=== PATIENT | female | born 1960 | race African-American/Black ===

== ENCOUNTER 2016-09-03 17:13 | Emergency (ER) | payer SELFPAY ==
--- NOTE | 2016-09-03 19:24 | ER Document Report ---
ED Medical Screen (RME) - General Chief Complaint: Black/Tarry Stools Stated Complaint: NUMBNESS IN ARM/BLACK STOOL/DIZZINESS Time Seen by Provider: 09/03/16 18:58 Mode of Arrival: Ambulatory Information source: Patient Notes: Patient is a 56 year old female who presents to the ED with complaints of black , tarry, watery stool with a "clump" today. Patient also states she has abdominal pain. Patient denies a history of ulcerative colitis. Patient also states she has had a subjective fever. Patient takes 1 aspirin daily but denies any iron supplements or recently taking Pepto. TRAVEL OUTSIDE OF THE [place] IN LAST 30 DAYS: No - Related Data Allergies/Adverse Reactions: celecoxib [From Celebrex] Allergy (Verified 09/03/16 17:40) hydrochlorothiazide Allergy (Verified 09/03/16 17:40) Past Medical History - General Information source: Patient - Social History Chew tobacco use (# tins/day): No Frequency of alcohol use: Occasional Drug Abuse: Marijuana - Past Medical History Cardiac Medical History: Reports: Hx Hypertension Neurological Medical History: Reports: Hx Migraine Renal/ Medical History: Denies: Hx Peritoneal Dialysis Musculoskeltal Medical History: Reports Hx Arthritis Past Surgical History: Reports: Hx Orthopedic Surgery - Cervical fusion Review of Systems - Review of Systems Constitutional: See HPI, Fever - subjective EENT: No symptoms reported Cardiovascular: No symptoms reported Respiratory: No symptoms reported Gastrointestinal: See HPI, Abdominal pain, Diarrhea, Black stools Genitourinary: No symptoms reported Female Genitourinary: No symptoms reported Musculoskeletal: No symptoms reported Skin: No symptoms reported Hematologic/Lymphatic: No symptoms reported Neurological/Psychological: No symptoms reported Physical Exam - Vital signs Vitals: Temp Pulse Resp BP Pulse Ox 98.5 F 96 20 168/91 H 97 09/03/16 17:40 09/03/16 17:40 09/03/16 17:40 09/03/16 17:40 09/03/16 17:40 - General In distress: None - Respiratory Respiratory status: No respiratory distress Breath sounds: Normal - Cardiovascular Rhythm: Regular Heart sounds: Normal auscultation Murmur: No - Neurological Neuro grossly intact: Yes Course - Vital Signs Vital signs: Temp Pulse Resp BP Pulse Ox 98.5 F 96 20 168/91 H 97 09/03/16 17:40 09/03/16 17:40 09/03/16 17:40 09/03/16 17:40 09/03/16 17:40 Scribe Documentation - Scribe Written by Medina:: medina Howard, 09/03/2016, 1922 acting as scribe for :: Wenceslao
[2016-09-03 19:44] LABS: ABSOLUTE BASOPHILS # (AUTO) 0.1 10^3/uL (0.0-0.2); ABSOLUTE EOSINOPHILS # (AUTO) 0.1 10^3/uL (0.0-0.6); ABSOLUTE LYMPHOCYTES (AUTO) 2.1 10^3/uL (0.5-4.7); ABSOLUTE MONOCYTES (AUTO) 0.7 10^3/uL (0.1-1.4); ABSOLUTE NEUT (AUTO) 9.5 10^3/uL (1.7-8.2); BASOPHILS % (AUTO) 0.8 % (0-2); HEMATOCRIT 45.1 % (36.0-47.0); HEMOGLOBIN 14.9 g/dL (12.0-15.5); HGB HCT DIFFERENCE -0.4; LYMPHOCYTES % (AUTO) 16.9 % (13-45); MEAN CORPUSCULAR HEMOGLOBIN 30.8 pg (27.0-33.4); MEAN CORPUSCULAR HGB CONC 32.9 g/dL (32.0-36.0); MEAN CORPUSCULAR VOLUME 94 fl (80-97); MONOCYTES % (AUTO) 5.9 % (3-13); RED BLOOD COUNT 4.82 10^6/uL (3.72-5.28); RED CELL DISTRIBUTION WIDTH 14.5 % (11.5-14.0); SEGMENTED NEUTROPHILS % (AUTO) 75.4 % (42-78); WHITE BLOOD COUNT 12.6 10^3/uL (4.0-10.5)
[2016-09-03 19:51] LABS: PROTHROMBIN TIME 12.4 SEC (11.4-15.4)
[2016-09-03 20:00] LABS: ALANINE AMINOTRANSFERASE 35 U/L (9-52); ALBUMIN 4.6 g/dL (3.5-5.0); ALKALINE PHOSPHATASE 84 U/L (38-126); ANION GAP 13 (5-19); ASPARTATE AMINO TRANSFERASE 22 U/L (14-36); BILIRUBIN,DIRECT 0.3 mg/dL (0.0-0.4); BILIRUBIN,TOTAL 0.6 mg/dL (0.2-1.3); BLOOD UREA NITROGEN 14 mg/dL (7-20); CALCIUM 10.8 mg/dL (8.4-10.2); CARBON DIOXIDE 27 mmol/L (22-30); CHLORIDE 103 mmol/L (98-107); GLUCOSE 108 mg/dL (75-110); POTASSIUM 4.9 mmol/L (3.6-5.0); SODIUM 142.6 mmol/L (137-145); TOTAL PROTEIN 8.6 g/dL (6.3-8.2)
--- NOTE | 2016-09-03 23:28 | ER Document Report ---
ED General - General Mode of Arrival: Ambulatory Information source: Patient TRAVEL OUTSIDE OF THE [place] IN LAST 30 DAYS: No - HPI Onset: Other - Refer to HPI notes Similar symptoms previously: Yes Recently seen / treated by doctor: No <MARYANNE TIAN - Last Filed: 09/04/16 01:45> <RANDY PRETTY - Last Filed: 09/04/16 04:31> - General Chief Complaint: Black/Tarry Stools Stated Complaint: NUMBNESS IN ARM/BLACK STOOL/DIZZINESS Time Seen by Provider: 09/03/16 18:58 Notes: Patient complains of numbness and pain to her right arm and chest x3 weeks. Patient also has some reducible chest pain to palpation. Patient's symptoms have been waxing and waning for 3 weeks. Patient denies any blurred or double vision. Patient complains of new symptoms of bloody/black stools. Patient states there is cloting, mucus, and a foul odor when she has a bowel movement. When patient goes to urinate she states she automatically has a bowel movement/ diarrhea. Patient has a history of chronic pain in her hip. Patient takes gavapentin from a previous neck surgery (300 mg x3 per day). Patient also has nebulizers and inhalers that she uses. PCP Candie Rossi (MARYANNE TIAN) - Related Data Allergies/Adverse Reactions: celecoxib [From Celebrex] Allergy (Verified 09/03/16 17:40) hydrochlorothiazide Allergy (Verified 09/03/16 17:40) Past Medical History - General Information source: Patient - Social History Smoking Status: Current Every Day Smoker Chew tobacco use (# tins/day): No Frequency of alcohol use: Occasional Drug Abuse: Marijuana Family History: None Patient has suicidal ideation: No Patient has homicidal ideation: No - Past Medical History Cardiac Medical History: Reports: Hx Hypertension Neurological Medical History: Reports: Hx Migraine Musculoskeltal Medical History: Reports Hx Arthritis Past Surgical History: Reports: Hx Orthopedic Surgery - Cervical fusion, Other - colonoscopy 2013 <AMRYANNE TIAN - Last Filed: 09/04/16 01:45> Review of Systems - Review of Systems Constitutional: No symptoms reported EENT: No symptoms reported Cardiovascular: Chest pain Respiratory: No symptoms reported Gastrointestinal: See HPI, Black stools Genitourinary: No symptoms reported Female Genitourinary: No symptoms reported Musculoskeletal: See HPI Skin: No symptoms reported Hematologic/Lymphatic: No symptoms reported Neurological/Psychological: No symptoms reported -: Yes All other systems reviewed and negative <MARYANNE TIAN - Last Filed: 09/04/16 01:45> Physical Exam <MIKE TIANINE - Last Filed: 09/04/16 01:45> <RANDY PRETTY - Last Filed: 09/04/16 04:31> - Vital signs Vitals: Temp Pulse Resp BP Pulse Ox 98.5 F 96 20 168/91 H 97 09/03/16 17:40 09/03/16 17:40 09/03/16 17:40 09/03/16 17:40 09/03/16 17:40 - Notes Notes: GENERAL: Alert, interacts well. No acute distress. HEAD: Normocephalic, atraumatic. EYES: Appear normal. Pupils equal, round, and reactive to light. ENT: Moist mucus membranes, tongue midline. NECK: Full range of motion. Supple. Trachea midline. Left posterior cervical tenderness to palpation. LUNGS: Clear to auscultation bilaterally, no wheezes, rales, or rhonchi. No respiratory distress. Left inferior chest wall tenderness to palpation. HEART: Regular rate and rhythm. No murmurs, gallops, or rubs. ABDOMEN: Soft, non-tender. Non-distended. Normal bowel sounds. EXTREMITIES: Moves all 4 extremities spontaneously. Normal strength. No edema. Radial pulses intact bilaterally. NEUROLOGICAL: Alert and oriented x3. Normal speech. No focal neurological deficits. GSC 15. PSYCH: Normal affect, normal mood. SKIN: Warm, dry, normal turgor. No rashes or lesions noted. (MARYANNE TIAN) Course - Laboratory Result Diagrams: 09/03/16 19:30 09/03/16 19:30 <FLAVIAMIKE MADERAINE - Last Filed: 09/04/16 01:45> - Laboratory Result Diagrams: 09/03/16 19:30 09/03/16 19:30 <RANDY PRETTY - Last Filed: 09/04/16 04:31> - Re-evaluation Re-evalutation: 09/03/16 23:36 Patient presents emergency department with a chief complaint of reproducible pain when she presses her left anterior chest wall. She says she also gets occasional tingling and numbness into her left arm for the past 3-4 weeks but has not talked to her primary care physician about a year. She has a history of fusion her neck but no injury no strokelike symptoms headache blurred vision or double vision. Her chest pain is reproducible to touch and movement she has no shortness of breath does not change with exertion. She had a sample of her diarrhea sent down to the lab and it was negative for blood. Radial ulnar axillary median nerves are intact no acute concerns for AK dissection or stroke. She has a radiculopathy which limits her on some steroids for she can call her family doctor follow-up in the next 2-3 days and discussed reasons for ED return sooner (RANDY PRETTY) - Vital Signs Vital signs: Temp Pulse Resp BP Pulse Ox 98.1 F 74 16 147/83 H 99 09/03/16 23:43 09/03/16 23:43 09/03/16 23:43 09/03/16 23:43 09/03/16 23:43 - Laboratory Laboratory results interpreted by me: 09/03/16 09/03/16 19:30 19:30 WBC 12.6 H RDW 14.5 H Absolute Neutrophils 9.5 H Calcium 10.8 H Total Protein 8.6 H Discharge <MARYANNE TIAN - Last Filed: 09/04/16 01:45> <RANDY PRETTY - Last Filed: 09/04/16 04:31> - Discharge Clinical Impression: Chest wall pain Radiculopathy Qualifiers: Spinal region: unspecified Qualified Code(s): M54.10 - Radiculopathy, site unspecified Condition: Stable Disposition: HOME, SELF-CARE Instructions: Chest Wall Pain ([facility]) Additional Instructions: Chest Wall Pain Your chest pain has been diagnosed as coming from the chest wall. This is often caused by straining the muscles or joints in the chest during physical activity, direct trauma, coughing, or vigorous vomiting. Persons with arthritis are especially prone to this type of pain, due to inflammation of the cartilage joints near the breast bone. Occasionally, no cause can be found. Rest from strenuous physical activity. This kind of chest pain is usually made worse by movement of the chest. Depending on the symptoms, we may prescribe medicine for pain, muscle relaxation, and antiinflammatory effects. If the pain is new, and seems to be due to muscle strain, cold packs can help. Otherwise, apply gentle warmth to the painful area for 15 minutes every hour or two. You should contact the doctor immediately if things change. Further evaluation is needed if you develop a fever or cough, if the nature of the pain changes, or if you become short of breath. Radiculopathy Radiculopathy is irritation of a nerve. Sometimes this is called "pinched nerve." The pain can be sharp and stabbing, constant and dull, or burning in nature. The pain can occur in any area of the chest, shoulders, or arms. Sometimes the pain is provoked by coughing or moving. Radiculopathy can be caused by physical pressure on a nerve, such as a herniated disc or swollen joint in the spine. It can also be caused by viral infections within the nerve or by nerve damage due to diabetes or blood vessel disease. Radicular pain is treated with antiinflammatory medicine. Injections may help resistant cases, if we can identify a single nerve that's causing the pain. Surgery is usually not necessary. If symptoms do not improve with time, you may need additional testing, such as an MRI or EMG (electromyogram). Return if there is local weakness or numbness, shortness of breath, increasing pain, or other new symptoms. Follow-up with Candie rossi in 2-3 days return for increasing worsening or new symptoms Prescriptions: Prednisone [Deltasone 20 mg Tablet] 3 tab PO DAILY 5 Days Forms: Return to Work Scribe Attestation: 09/03/16 23:36 I personally performed the services described in the documentation reviewed the documentation recorded by my scribe in my presence and it accurately and completely records my words and actions (RANDY PRETTY) Scribe Documentation - Scribe Written by Erwin:: Erwin Romero 09/03/16 23:34 acting as scribe for :: Cesar <MARYANNE TIAN - Last Filed: 09/04/16 01:45>
[2016-09-03 23:47] VITALS: BP 147/83
== END 2016-09-03 23:50 | disposition home or self-care (01) ==
LOC: ER 17:13
DX: M54.10 Radiculopathy, site unspecified (principal); R07.89 Other chest pain; R19.5 Other fecal abnormalities; M79.601 Pain in right arm; F17.200 Nicotine dependence, unspecified, uncomplicated; I10 Essential (primary) hypertension; Z98.1 Arthrodesis status
CPT/HCPCS: 36415; 80053; 82272; 85025; 85610; 86850; 86900; 86901; 87045; 87205; 87493; 99284

== ENCOUNTER 2017-02-12 12:07 | Emergency (ER) | payer SELFPAY ==
--- NOTE | 2017-02-12 13:26 | RADIOLOGY REPORT (SQ) ---
EXAM DESCRIPTION: CHEST PA/LAT COMPLETED DATE/TIME: 02/12/2017 1:17 pm REASON FOR STUDY: cough COMPARISON: 10/27/2015. EXAM PARAMETERS: NUMBER OF VIEWS: two views TECHNIQUE: Digital Frontal and Lateral radiographic views of the chest acquired. RADIATION DOSE: NA LIMITATIONS: none FINDINGS: LUNGS AND PLEURA: No opacities, masses or pneumothorax. No pleural effusion. MEDIASTINUM AND HILAR STRUCTURES: No masses or contour abnormalities. HEART AND VASCULAR STRUCTURES: Heart normal size. No evidence for failure. BONES: No acute findings. HARDWARE: Hardware in the cervical spine. OTHER: No other significant finding. IMPRESSION: NO SIGNIFICANT RADIOGRAPHIC FINDING IN THE CHEST. TECHNICAL DOCUMENTATION: JOB ID: [id number] [employer]- All Rights Reserved
[2017-02-12] MEDS ORDERED: IPRATROPIUM/ALBUTEROL 0.5-2.5 MG/3 ML AMPUL NEB ONE (13:28)
--- NOTE | 2017-02-12 13:34 | ER Document Report ---
HPI - HPI Pain Level: 4 Notes: Patient is a 57-year-old female with a history of hypertension and asthma who presents the ED complaining of intermittent fever, nasal congestion/discharge, postnasal drip, [place]'s, body aches, dry semi-productive cough, wheezing 4-5 days. Patient states that she also has associated pain in her chest when she coughs that is reproducible when she pushes on it. Patient has been using over- the-counter meds with minimal relief. She still eating and drinking without difficulties. She is still ambulatory without dyspnea on exertion or worsening symptoms. Patient states that she has no difficulties with distance walking or exercising. She is urinating normally and having normal bowel movements. She denies any previous cardiac history otherwise including PE and DVT. She denies any hormone use, calf pains, recent trauma/surgery, prolonged immobilization, cancer. patient does admit to vague pain, but denies cigarette use. She denies any IV drug use. Denies any head injury, neck pain, changes in vision/ speech/mentation/hearing, sore throat, palpitations, syncope, shortness of breath, dyspnea, abdominal pain, nausea/vomiting/diarrhea, urinary retention, dysuria, hematuria, loss of control of bowel or bladder, numbness/tingling, saddle anesthesia, muscle paralysis/weakness, or rash. - ROS Notes: REVIEW OF SYSTEMS: CONSTITUTIONAL : see hpi EENT: see hpi CARDIOVASCULAR: Denies chest pain. Denies palpitations or racing or irregular heart beat. Denies ankle edema. RESPIRATORY: see hpi GASTROINTESTINAL: Denies abdominal pain or distention. Denies nausea, vomiting , or diarrhea. Denies blood in vomitus, stools, or per rectum. Denies black, tarry stools. Denies constipation. GENITOURINARY: Denies difficulty urinating, painful urination, burning, frequency, blood in urine, or discharge. MUSCULOSKELETAL: Denies back or neck pain or stiffness. Denies joint pain or swelling. SKIN: Denies rash, lesions or sores. NEUROLOGICAL: Denies confusion or altered mental status. Denies passing out or loss of consciousness. Denies dizziness or lightheadedness. Denies weakness or paralysis or loss of use of either side. Denies problems with gait or speech. Denies sensory loss, numbness, or tingling. Denies seizures. ALL OTHER SYSTEMS REVIEWED AND NEGATIVE. Dictation was performed using [employer] voice recognition software - CONSTITUTIONAL Constitutional: DENIES: Fever, Chills - EENT EENT: DENIES: Sore Throat, Ear Pain, Eye problems - NEURO Neurology: REPORTS: Headache. DENIES: Weakness, Vision blurred, Dizzinesss / Vertigo - CARDIOVASCULAR Cardiovascular: REPORTS: Chest pain - pleuritic pain - RESPIRATORY Respiratory: REPORTS: Trouble Breathing - pain upon deep breaths, Coughing - non -productive cough - GASTROINTESTINAL Gastrointestinal: DENIES: Abdominal Pain, Black / Bloody Stools - URINARY Urinary: DENIES: Dysuria, Urgency, Frequency - REPRODUCTIVE Reproductive: DENIES: : - MUSCULOSKELETAL Musculoskeletal: DENIES: Extremity pain Past Medical History - Social History Smoking Status: Current Some Day Smoker Chew tobacco use (# tins/day): No Frequency of alcohol use: Occasional Drug Abuse: None Family History: None Patient has suicidal ideation: No Patient has homicidal ideation: No - Past Medical History Cardiac Medical History: Reports: Hx Hypertension Neurological Medical History: Reports: Hx Migraine Renal/ Medical History: Denies: Hx Peritoneal Dialysis Musculoskeltal Medical History: Reports Hx Arthritis Past Surgical History: Reports: Hx Orthopedic Surgery - Cervical fusion, Other - colonoscopy 2013 Vertical Provider Document - CONSTITUTIONAL Agree With Documented VS: Yes Notes: PHYSICAL EXAMINATION: GENERAL: Well-appearing, well-nourished and in no acute distress. A&Ox4 HEAD: Atraumatic, normocephalic. EYES: Pupils equal round and reactive to light, extraocular movements intact, sclera anicteric, conjunctiva are normal. ENT: EAC clear b/l. TM's intact b/l without erythema, fluid, or perforation. Nares patent and with clear discharge. oropharynx clear without exudates. No tonsilar hypertrophy or erythema. Moist mucous membranes. No sinus tenderness. Uvula midline. No palatine shift. No tongue protrusion. NECK: Normal range of motion, supple without lymphadenopathy. No rigidity/ meningismus. Chest: + tenderness to the left costocondral area (corresponds to pain described). No flail chest. equal rise/fall. LUNGS: wheezes b/l. HEART: Regular rate and rhythm without murmurs, rubs, gallops. ABDOMEN: Soft, nontender, nondistended abdomen. No guarding, no rebound. No masses appreciated. Normal bowel sounds present. Musculoskeletal: Ext b/l: FROM to passive/active. Strength 5+/5. No deficits noted. No bony tenderness of extremities. Vishal neg b/l. No erythema or swelling of calves b/l. Extremities: No cyanosis, clubbing, or edema b/l. Peripheral pulses 2+. Capillary refill less than 2 seconds. NEUROLOGICAL: MMSE intact. Cranial nerves grossly intact. Normal speech, normal gait. Normal sensory, motor exams. Reflexes 2+ b/l. MILAGRO's negative. Pronator drift negative. PSYCH: Normal mood, normal affect. SKIN: Warm, Dry, normal turgor, no rashes or lesions noted. - INFECTION CONTROL TRAVEL OUTSIDE OF THE [place] IN LAST 30 DAYS: No - RESPIRATORY O2 Sat by Pulse Oximetry: 97 Course - Re-evaluation Re-evalutation: 02/12/17 14:50 Patient is an afebrile, well-hydrated, 57-year-old female who presents to the ED with acute URI/bronchitis, suspect viral at this time. Vitals are stable. PE is otherwise unremarkable. Influenza negative. Pt's H&P correlate with suspected diagnosis. Patient has a Well's score of 0, but cannot r/o PERC due to age alone--otherwise would be negative. EKG and CXR unremarkable for acute pathology and without signs of right heart strain. Pt has otherwise lower risk factors for emergent cardiopulmonary etiologies at this time. Pt is not tachycardic and is able to walk and be active w/o difficulty or worsening symptoms. Pt's chest pain is reproducible. Low suspicion for any ACS, PE, pneumothorax, pericarditis, dissection, respiratory compromise, severe dehydration, sepsis, meningitis, or other systemic emergent condition at this time. Patient is aware that her condition can change from initial presentation and she needs to monitor symptoms closely and seek medical attention for any acute changes. Decadron and a duoneb tx given today. Lung sounds did improve. I will send her home with a Rx for tessalon and albuterol inhaler. Recommend conservative measures for symptoms. Recheck with your PCM in 3-5 days. Return to the ED with any worsening/concerning symptoms otherwise as reviewed in discharge. Patient is in agreement. - Vital Signs Vital signs: Temp Pulse Resp BP Pulse Ox 98.2 F 73 18 159/85 H 97 02/12/17 12:15 02/12/17 12:15 02/12/17 12:15 02/12/17 12:15 02/12/17 12:15 Discharge - Discharge Clinical Impression: Acute URI, Chest wall pain Acute bronchitis Qualifiers: Bronchitis organism: unspecified organism Qualified Code(s): J20.9 - Acute bronchitis, unspecified Condition: Stable Disposition: HOME, SELF-CARE Instructions: Bronchitis With Bronchospasm (Wheezing) ([facility]), Inhaled Bronchodilators ([facility]), Upper Respiratory Illness ([facility]) Additional Instructions: Maintain adequate fluid intake Take meds as directed tylenol/ibuprofen as needed over the counter cold medication as needed for symptoms Humidified air may help Monitor symptoms closely for any acute changes ice, heat may help the chest wall F/u: with your PCM in 3-5 days for a recheck Return to the ED with any worsening symptoms and/or development of fever, worsening headache, worsening chest pain, palpitations, syncope, shortness of breath, trouble breathing, dyspnea on exertion, abdominal pain, n/v/d, blood in stool/urine, loss of control of bowel/bladder, urinary retention, or other worsening symptoms that are concerning to you. Prescriptions: Benzonatate [Tessalon Perle 100 mg Capsule] 100 mg PO Q8HP PRN #15 cap PRN Reason: Albuterol Sulfate [Proair HFA Inhalation Aerosol 8.5 gm MDI] 2 puff IH Q4H PRN # 1 mdi PRN Reason: Forms: Elevated Blood Pressure, Smoking Cessation Education, Return to Work Referrals: [facility] [Provider Group] - Follow up as needed [facility] [Provider Group] - Follow up as needed
[2017-02-12] MEDS ORDERED: DEXAMETHASONE SOD PHOS INJ 10 MG/1 ML VIAL IM ONE ×2 (14:14→14:36)
[2017-02-12] MEDS ORDERED: DEXAMETHASONE SOD PHOSPHATE INJ 4 MG/1 ML VIAL ONE (14:35)
[2017-02-12 15:09] VITALS: BP 145/88
--- NOTE | 2017-02-12 20:30 | EKG REPORT ---
SEVERITY:- OTHERWISE NORMAL ECG - SINUS RHYTHM BORDERLINE LEFT AXIS DEVIATION : Confirmed by: Bethany Guo MD 12-Feb-2017 20:28:43
== END 2017-02-12 15:09 | disposition home or self-care (01) ==
LOC: ER 12:07
DX: J06.9 Acute upper respiratory infection, unspecified (principal); J20.9 Acute bronchitis, unspecified; R07.89 Other chest pain; I10 Essential (primary) hypertension; R50.9 Fever, unspecified; R09.81 Nasal congestion; R09.89 Other specified symptoms and signs involving the circulatory and respiratory systems; R09.82 Postnasal drip; R51 Headache; M79.1 Myalgia; R05 Cough; R06.2 Wheezing; F17.200 Nicotine dependence, unspecified, uncomplicated
CPT/HCPCS: 93005; 99284; 96372; 87804; 71020; 93010; J1100; J7620

== ENCOUNTER 2017-03-25 08:01 | Emergency (ER) | payer SELFPAY ==
[2017-03-25] MEDS ORDERED: ASPIRIN 81 MG TABLET, CHEWABLE PO ONE (08:47)
[2017-03-25 08:48] LABS: ABSOLUTE BASOPHILS # (AUTO) 0.1 10^3/uL (0.0-0.2); ABSOLUTE EOSINOPHILS # (AUTO) 0.2 10^3/uL (0.0-0.6); ABSOLUTE LYMPHOCYTES (AUTO) 1.7 10^3/uL (0.5-4.7); ABSOLUTE MONOCYTES (AUTO) 0.6 10^3/uL (0.1-1.4); ABSOLUTE NEUT (AUTO) 10.1 10^3/uL (1.7-8.2); BASOPHILS % (AUTO) 0.6 % (0-2); EOSINOPHILS % (AUTO) 1.7 % (0-6); HEMATOCRIT 38.9 % (36.0-47.0); LYMPHOCYTES % (AUTO) 13.1 % (13-45); MEAN CORPUSCULAR HEMOGLOBIN 31.2 pg (27.0-33.4); MEAN CORPUSCULAR HGB CONC 33.3 g/dL (32.0-36.0); MEAN CORPUSCULAR VOLUME 94 fl (80-97); MONOCYTES % (AUTO) 5.1 % (3-13); PLATELET COUNT 264 10^3/uL (150-450); RED BLOOD COUNT 4.16 10^6/uL (3.72-5.28); RED CELL DISTRIBUTION WIDTH 14.9 % (11.5-14.0); SEGMENTED NEUTROPHILS % (AUTO) 79.5 % (42-78); TOTAL CELLS COUNTED % (AUTO) 100 %; WHITE BLOOD COUNT 12.7 10^3/uL (4.0-10.5)
[2017-03-25] MEDS ORDERED: MORPHINE SULFATE 10 MG/ML INJ IV ONE (08:48)
--- NOTE | 2017-03-25 08:51 | ER Document Report ---
ED General - General Chief Complaint: Abdominal Pain Stated Complaint: ABDOMINAL PAIN Time Seen by Provider: 03/25/17 08:30 Mode of Arrival: Medic Information source: Patient Notes: Patient presents complaining of left lower quadrant abdominal pain that woke her up at 3:00 this morning. Patient states that around 7 this morning the pain from her abdomen started to radiate up into the left side of her chest. Patient states that she has some left arm numbness. Patient states that the chest pain only lasted for a few minutes and then resolved. The patient complains of continued left lower quadrant pain at this time. Patient does report nausea and diarrhea 3 episodes. Patient denies any fever, cough, or any urinary symptoms. Patient denies any vaginal bleeding or discharge. TRAVEL OUTSIDE OF THE [place] IN LAST 30 DAYS: No - HPI Onset: This morning Onset/Duration: Sudden Quality of pain: Sharp Pain Level: 5 Associated symptoms: Chest pain - Now resolved, Diarrhea, Nausea. denies: Nonproductive cough, Productive cough, Fever, Vomiting Exacerbated by: Denies Relieved by: Denies Similar symptoms previously: No Recently seen / treated by doctor: No - Related Data Allergies/Adverse Reactions: celecoxib [From Celebrex] Allergy (Verified 03/25/17 08:03) hydrochlorothiazide Allergy (Verified 03/25/17 08:03) Past Medical History - General Information source: Patient - Social History Smoking Status: Current Some Day Smoker - vape Frequency of alcohol use: Occasional Drug Abuse: None Occupation: call center Lives with: Family Family History: None - Past Medical History Cardiac Medical History: Reports: Hx Hypertension Pulmonary Medical History: Reports: Hx Asthma, Hx Sleep Apnea Neurological Medical History: Reports: Hx Migraine Renal/ Medical History: Denies: Hx Peritoneal Dialysis Musculoskeltal Medical History: Reports Hx Arthritis Past Surgical History: Reports: Hx Breast Surgery, Hx Orthopedic Surgery - Cervical fusion, Other - colonoscopy 2013 Review of Systems - Review of Systems Constitutional: No symptoms reported. denies: Fever EENT: No symptoms reported Cardiovascular: Chest pain. denies: Syncope, Dizziness Respiratory: No symptoms reported. denies: Cough, Short of breath Gastrointestinal: Abdominal pain, Diarrhea, Nausea. denies: Vomiting, Constipation, Blood streaked bowels, Poor appetite Genitourinary: No symptoms reported. denies: Dysuria, Frequency, Flank pain Female Genitourinary: No symptoms reported Musculoskeletal: No symptoms reported Skin: No symptoms reported Hematologic/Lymphatic: No symptoms reported Neurological/Psychological: Numbness - left arm. denies: Headaches Physical Exam - Vital signs Vitals: Temp Pulse Resp BP Pulse Ox 98.9 F 81 16 132/77 H 100 03/25/17 08:10 03/25/17 08:10 03/25/17 08:10 03/25/17 08:10 03/25/17 08:10 - General General appearance: Appears well, Alert In distress: None - HEENT Head: Normocephalic, Atraumatic Eyes: Normal Conjunctiva: Normal Nasal: Normal Mouth/Lips: Normal Mucous membranes: Normal Neck: Normal, Supple. No: Lymphadenopathy - Respiratory Respiratory status: No respiratory distress Chest status: Nontender Breath sounds: Normal. No: Rales, Rhonchi, Stridor, Wheezing Chest palpation: Normal - Cardiovascular Rhythm: Regular Heart sounds: S1 appreciated, S2 appreciated Murmur: No - Abdominal Inspection: Morbidly Obese Distension: No distension Bowel sounds: Normal Tenderness: Tender - Left lower quadrant, suprapubic, Guarding - left lower quadrant Organomegaly: No organomegaly - Back Back: Normal, Nontender. No: CVA tenderness, Vertebra tenderness - Extremities General upper extremity: Normal inspection, Nontender, Normal strength General lower extremity: Normal inspection, Nontender, Normal strength - Neurological Neuro grossly intact: Yes Cognition: Normal Jefferson Coma Scale Eye Opening: Spontaneous Lizzy Coma Scale Verbal: Oriented [place] Coma Scale Motor: Obeys Commands Lizzy Coma Scale Total: 15 - Psychological Associated symptoms: Normal affect, Normal mood - Skin Skin Temperature: Warm Skin Moisture: Dry Skin Color: Normal Course - Re-evaluation Re-evalutation: 03/25/17 10:01 Patient denies any chest pain at this time. Patient does complain of continued left upper extremity paresthesia. Patient continues with left lower pelvic tenderness. Patient denies any improvement with pain medication. 03/25/17 12:25 Patient continues to deny any chest pain at this time. Vital signs stable. Discussed patient case with Dr. Hernandez, reviewed patient's EKG as well as diagnostic evaluation. Recommends treating patient for diverticulitis and having patient follow up with primary doctor for outpatient stress test. Discussed this plan of care with patient, patient verbalized understanding and is agreeable with plan of care. The patient has atypical chest pain as the patient's chest pain is not suggestive of pulmonary embolus, cardiac ischemia, aortic dissection, or other serious etiology. Given the extremely low risk of these diagnoses for the test in evaluation for these possibilities does not appear to be indicated at this time. Patient has been instructed to return if the symptoms worsen or change in any way. Patient's abdominal pain is consistent with diverticulitis. No concern for abscess or perforation at this time. - Vital Signs Vital signs: Temp Pulse Resp BP Pulse Ox 98.9 F 81 19 138/89 H 100 03/25/17 08:10 03/25/17 08:10 03/25/17 12:01 03/25/17 12:01 03/25/17 12:01 - Laboratory Result Diagrams: 03/25/17 07:00 03/25/17 07:00 Laboratory results interpreted by me: 03/25/17 03/25/17 03/25/17 07:00 07:00 09:15 WBC 12.7 H RDW 14.9 H Seg Neutrophils % 79.5 H Absolute Neutrophils 10.1 H Calcium 10.3 H Urine Blood SMALL H Labs- Entire Visit 03/25/17 03/25/17 03/25/17 07:00 07:00 07:00 WBC 12.7 H RBC 4.16 Hgb 13.0 Hct 38.9 MCV 94 MCH 31.2 MCHC 33.3 RDW 14.9 H Plt Count 264 Seg Neutrophils % 79.5 H Lymphocytes % 13.1 Monocytes % 5.1 Eosinophils % 1.7 Basophils % 0.6 Absolute Neutrophils 10.1 H Absolute Lymphocytes 1.7 Absolute Monocytes 0.6 Absolute Eosinophils 0.2 Absolute Basophils 0.1 Sodium 142.1 Potassium 4.5 Chloride 107 Carbon Dioxide 26 Anion Gap 9 BUN 15 Creatinine 0.74 Est GFR ( Amer) > 60 Est GFR (Non-Af Amer) > 60 Glucose 98 Calcium 10.3 H Magnesium 2.1 Total Bilirubin 0.5 Direct Bilirubin 0.4 Neonat Total Bilirubin Not Reportable Neonat Direct Bilirubin Not Reportable Neonat Indirect Bili Not Reportable AST 14 ALT 20 Alkaline Phosphatase 62 Creatine Kinase 107 CK-MB (CK-2) Troponin I Total Protein 7.1 Albumin 4.0 Lipase 78.0 Urine Color Urine Appearance Urine pH Ur Specific [place] Urine Protein Urine Glucose (UA) Urine Ketones Urine Blood Urine Nitrite Urine Bilirubin Urine Urobilinogen Ur Leukocyte Esterase Urine WBC (Auto) Urine RBC (Auto) Squamous Epi Cells Auto Urine Mucus (Auto) Urine Ascorbic Acid 03/25/17 03/25/17 03/25/17 07:00 09:15 10:52 WBC RBC Hgb Hct MCV MCH MCHC RDW Plt Count Seg Neutrophils % Lymphocytes % Monocytes % Eosinophils % Basophils % Absolute Neutrophils Absolute Lymphocytes Absolute Monocytes Absolute Eosinophils Absolute Basophils Sodium Potassium Chloride Carbon Dioxide Anion Gap BUN Creatinine Est GFR ( Amer) Est GFR (Non-Af Amer) Glucose Calcium Magnesium Total Bilirubin Direct Bilirubin Neonat Total Bilirubin Neonat Direct Bilirubin Neonat Indirect Bili AST ALT Alkaline Phosphatase Creatine Kinase CK-MB (CK-2) < 0.22 Troponin I < 0.012 < 0.012 Total Protein Albumin Lipase Urine Color STRAW Urine Appearance CLEAR Urine pH 7.0 Ur Specific [place] 1.008 Urine Protein NEGATIVE Urine Glucose (UA) NEGATIVE Urine Ketones NEGATIVE Urine Blood SMALL H Urine Nitrite NEGATIVE Urine Bilirubin NEGATIVE Urine Urobilinogen NEGATIVE Ur Leukocyte Esterase NEGATIVE Urine WBC (Auto) 1 Urine RBC (Auto) 2 Squamous Epi Cells Auto <1 Urine Mucus (Auto) RARE Urine Ascorbic Acid NEGATIVE - Diagnostic Test Radiology reviewed: Reports reviewed Discharge - Discharge Clinical Impression: Diverticulitis Chest pain Qualifiers: Chest pain type: unspecified Qualified Code(s): R07.9 - Chest pain, unspecified Abdominal pain Qualifiers: Abdominal location: left lower quadrant Qualified Code(s): R10.32 - Left lower quadrant pain Condition: Stable Disposition: HOME, SELF-CARE Instructions: Abdominal Pain ([facility]), Ciprofloxacin ([facility]), Chest Pain of Unclear Cause ([facility]), Diverticulitis ([facility]), Metronidazole ([facility]), Oral Narcotic Medication ([facility]) Additional Instructions: Return immediately for any new or worsening symptoms Followup with your primary care provider, call tomorrow to make a followup appointment Follow-up with a travel specialist on an outpatient basis for outpatient stress test Return for any increased pain, rectal bleeding, fever, or any concerning symptoms Prescriptions: Ciprofloxacin HCl [Cipro 500 mg Tablet] 500 mg PO BID #20 tablet Metronidazole [Flagyl 500 mg Tablet] 500 mg PO TID #30 tablet Oxycodone HCl/Acetaminophen [Percocet 5-325 mg Tablet] 1 tab PO ASDIR PRN #15 tablet PRN Reason: Forms: Return to Work Referrals: NANCY CASTRO MD [ACTIVE STAFF] - Follow up tomorrow SHILOH MOSHER PA-C [NO LOCAL MD] - Follow up tomorrow
[2017-03-25 09:05] LABS: CREATINE KINASE 107 U/L (30-135); MAGNESIUM 2.1 mg/dL (1.6-2.3)
[2017-03-25 09:07] LABS: ALANINE AMINOTRANSFERASE 20 U/L (9-52); ALKALINE PHOSPHATASE 62 U/L (38-126); ANION GAP 9 (5-19); ASPARTATE AMINO TRANSFERASE 14 U/L (14-36); BILIRUBIN,DIRECT 0.4 mg/dL (0.0-0.4); BILIRUBIN,TOTAL 0.5 mg/dL (0.2-1.3); BLOOD UREA NITROGEN 15 mg/dL (7-20); CALCIUM 10.3 mg/dL (8.4-10.2); CARBON DIOXIDE 26 mmol/L (22-30); CHLORIDE 107 mmol/L (98-107); GLUCOSE 98 mg/dL (75-110); POTASSIUM 4.5 mmol/L (3.6-5.0); SODIUM 142.1 mmol/L (137-145); TOTAL PROTEIN 7.1 g/dL (6.3-8.2)
[2017-03-25 09:21] LABS: CREATINE KINASE MB < 0.22 ng/mL (<4.55); TROPONIN I < 0.012 ng/mL
[2017-03-25 09:35] LABS: APPEARANCE,URINE CLEAR; BILIRUBIN,URINE NEGATIVE (NEGATIVE); COLOR,URINE STRAW; GLUCOSE, URINE NEGATIVE (NEGATIVE); KETONES,URINE NEGATIVE (NEGATIVE); LEUKOCYTE ESTERASE,URINE NEGATIVE (NEGATIVE); NITRITE,URINE NEGATIVE (NEGATIVE); PROTEIN,URINE NEGATIVE (NEGATIVE); URINE SPECIFIC GRAVITY 1.008; UROBILINOGEN,URINE NEGATIVE mg/dL (<2.0)
--- NOTE | 2017-03-25 09:46 | RADIOLOGY REPORT (SQ) ---
EXAM DESCRIPTION: CHEST PA/LAT COMPLETED DATE/TIME: 03/25/2017 9:34 am REASON FOR STUDY: cp COMPARISON: 02/12/2017 EXAM PARAMETERS: NUMBER OF VIEWS: two views TECHNIQUE: Digital Frontal and Lateral radiographic views of the chest acquired. RADIATION DOSE: NA LIMITATIONS: none FINDINGS: LUNGS AND PLEURA: No opacities, masses or pneumothorax. No pleural effusion. MEDIASTINUM AND HILAR STRUCTURES: No masses or contour abnormalities. HEART AND VASCULAR STRUCTURES: Heart normal size. No evidence for failure. BONES: No acute findings. HARDWARE: None in the chest. OTHER: Hardware anterior fusion mid lower cervical spine. IMPRESSION: 1 No significant interval changes since the previous examination dated 02/12/2017. No a cute pulmonary findings. TECHNICAL DOCUMENTATION: JOB ID: [id number] [employer]- All Rights Reserved
--- NOTE | 2017-03-25 09:50 | EKG REPORT ---
SEVERITY:- OTHERWISE NORMAL ECG - SINUS RHYTHM BORDERLINE LEFT AXIS DEVIATION : Confirmed by: Parker Molina 25-Mar-2017 09:49:43
[2017-03-25] MEDS ORDERED: HYDROMORPHONE HCL INJ/PF 2 MG/ML AMPULE IV ONE (10:00)
--- NOTE | 2017-03-25 10:49 | RADIOLOGY REPORT (SQ) ---
EXAM DESCRIPTION: CT ABD/PELVIS WITH IV ONLY COMPLETED DATE/TIME: 03/25/2017 10:36 am REASON FOR STUDY: LLQ pain COMPARISON: None. TECHNIQUE: CT scan of the abdomen and pelvis performed using helical scanning technique with dynamic intravenous contrast injection. No oral contrast. Images reviewed with lung, soft tissue, and bone windows. Reconstructed coronal and sagittal MPR images reviewed. Delayed images for evaluation of the urinary system also acquired. All images stored on PACS. All CT scanners at this facility use dose modulation, iterative reconstruction, and/or weight based d osing when appropriate to reduce radiation dose to as low as reasonably achievable (ALARA). [facility]: Dose Right [facility]: CareDose [facility]: Dose Right [facility]: Teradose 4D [facility]: Cyber-Rain CONTRAST TYPE AND DOSE: contrast/concentration: Isovue 370.00 mg/ml; Total Contrast Delivered: 99.0 ml; Total Saline Delivered: 46.0 ml RENAL FUNCTION: Creatinine 0.74 RADIATION DOSE: CT Rad equipment meets quality standard of care and radiation dose reduction techniq ues were employed. CTDIvol: 21.0 - 21.1 mGy. DLP: 2442 mGy-cm.. LIMITATIONS: None. FINDINGS: Along the distal descending and proximal sigmoid colon, a 10 cm long segment of colon wall thickening, luminal narrowing, the inflammatory stranding in the adjacent pericolic fat is present. This most likely indicates diverticulitis. No well circumscribed abscess. No free intraperitoneal air or fluid. Remainder of the uncontrasted images of the gastrointestinal tract are otherwise unremarkable. LOWER CHEST: No significant findings. No nodules or infiltrates. LIVER: Normal size. No masses. No dilated ducts. SPLEEN: Normal size. No focal lesions. PANCREAS: No masses. No significant calcifications. No adjacent inflammation or peripancreatic fluid collections. Pancreatic duct not dilated. GALLBLADDER: No identified stones by CT criteria. No inflammatory changes to suggest cholecystitis. ADRENAL GLANDS: Right adrenal gland unremarkable. Benign 12 mm fatty density left adrenal nodule. RIGHT KIDNEY AND URETER: No solid masses. No significant calcifications. No hydronephrosis or hyd roureter. LEFT KIDNEY AND URETER: No solid masses. No significant calcifications. No hydronephrosis or hydr oureter. AORTA AND VESSELS: No aneurysm. No dissection. Renal arteries, SMA, celiac without stenosis. RETROPERITONEUM: No retroperitoneal adenopathy, hemorrhage or masses. BOWEL AND PERITONEAL CAVITY: As above APPENDIX: Normal. PELVIS: No mass. No free fluid. Normal bladder. Normal size female pelvic organs ABDOMINAL WALL: No masses. No hernias. BONES: No significant or acute findings. OTHER: No other significant finding. IMPRESSION: Distal descending colon/ proximal sigmoid colon diverticulitis without CT evidence of ab scess TECHNICAL DOCUMENTATION: JOB ID: [id number] Quality ID # [id number]: Final reports with documentation of one or more dose reduction techniques (e.g., Au tomated exposure control, adjustment of the mA and/or kV according to patient size, use of iterative reconstruction technique) 2010 [employer]- All Rights Reserved
[2017-03-25] MEDS ORDERED: CIPROFLOXACIN HCL 500 MG TABLET PO ONE (11:11)
[2017-03-25] MEDS ORDERED: METRONIDAZOLE 500 MG TABLET PO ONE (11:11)
[2017-03-25 13:00] VITALS: BP 138/89
== END 2017-03-25 13:10 | disposition home or self-care (01) ==
LOC: ER 08:01
DX: K57.92 Diverticulitis of intestine, part unspecified, without perforation or abscess without bleeding (principal); R10.32 Left lower quadrant pain; R07.9 Chest pain, unspecified; R19.7 Diarrhea, unspecified; R11.0 Nausea
CPT/HCPCS: 93005; 99285; 36415; 82553; 82550; 83690; 83735; 85025; 80053; 81001; 84484; 71046; 74177; 93010; J2270; J1170

== ENCOUNTER 2017-06-10 08:40 | Day surgery (SDC) | payer OTHER ==
[~2017-06-10 08:40] MED LIST: PROPOFOL INJ 200 MG/20 ML VIAL IV ONE
[2017-06-10] MEDS ORDERED: PROPOFOL INJ 200 MG/20 ML VIAL IV ONE (09:49)
[2017-06-10 10:35] VITALS: BP 128/74
--- NOTE | 2017-06-10 13:55 | Operative Report ---
Operative Report DATE OF SURGERY: 06/10/17 Operative Report: The risks, benefits and alternatives of the procedure including risks of bleeding, perforation requiring surgery are explained to the patient in detail and informed consent is obtained. Patient is taken back to the endoscopy suite and placed in the left, lateral decubital position. Timeout was called. Propofol medications administered. A rectal examination is done which did not reveal any masses, tears or fissures. An Olympus videoscope was inserted into the patient's rectum. The scope was then carefully advanced all the way to the cecum. The cecum was identified by the usual anatomical landmarks including the ileocecal valve as well as the appendiceal office. Photodocumentation is obtained. The scope is then sequentially pulled back via the various segments of the colon including the ascending colon, hepatic flexure, transverse colon, splenic flexure, descending colon and finally into the rectosigmoid portions of the colon. Retroflexion maneuver is performed. PREOPERATIVE DIAGNOSIS: Left lower quadrant pain, rectal bleeding POSTOPERATIVE DIAGNOSIS: Submucosal lesion questionable lipoma status post biopsy for confirmation. Internal hemorrhoids OPERATION: Colonoscopy with biopsy SURGEON: JOSELITO CHOE ANESTHESIA: LMAC TISSUE REMOVED OR ALTERED: As noted above. COMPLICATIONS: None. ESTIMATED BLOOD LOSS: None. INTRAOPERATIVE FINDINGS: As noted above. PROCEDURE: Patient tolerated procedure well. No immediate postprocedure complications are noted. Patient discharged in good condition. Discharge date 06/10/2017. Discharge diet: Regular. Discharge activity: Regular. 2-3 week follow-up to discuss findings. We will wait on pathology. Patient is instructed to call the office or proceed to the emergency room should there be any further problems or questions.
== END 2017-06-10 10:35 | disposition home or self-care (01) ==
LOC: END 08:40
PROVIDERS: ATTEND Internal Medicine Gastroenterology
PROC: 0DBF8ZX Excision of Right Large Intestine, Via Natural or Artificial Opening Endoscopic, Diagnostic (ICD-10-PCS; principal; 2017-06-10 10:30)
DX: K52.9 Noninfective gastroenteritis and colitis, unspecified (principal); K64.8 Other hemorrhoids; K63.9 Disease of intestine, unspecified; K62.5 Hemorrhage of anus and rectum; I10 Essential (primary) hypertension; J45.40 Moderate persistent asthma, uncomplicated; G47.33 Obstructive sleep apnea (adult) (pediatric); G43.919 Migraine, unspecified, intractable, without status migrainosus; Z79.899 Other long term (current) drug therapy
CPT/HCPCS: 45380; 88305 ×2; J2704; 811

== ENCOUNTER → 2017-07-22 | Outpatient (CLI) | payer OTHER ==
--- NOTE | 2017-07-22 10:40 | RADIOLOGY REPORT (SQ) ---
EXAM DESCRIPTION: U/S ABDOMEN COMPLETE W/DOPPLER COMPLETED DATE/TIME: 07/22/2017 10:11 am REASON FOR STUDY: NAUSEA AND VOMITING R11.2 NAUSEA WITH VOMITING, UNSPECIFIED COMPARISON: None. TECHNIQUE: Dynamic and static grayscale images acquired of the abdomen and recorded on PACS. [place] mee selected color Doppler and spectral images recorded. LIMITATIONS: None. FINDINGS: PANCREAS: Head and body normal. The tail was obscured by gas. LIVER: 18.7 cm. Increased echogenicity. Evaluation slightly limited by body habitus. LIVER VASCULATURE: Normal directional flow of the main portal vein and hepatic veins. GALLBLADDER: No stones. Normal wall thickness. No pericholecystic fluid. ULTRASOUND-DETECTED PHILLIPS'S SIGN: Negative. INTRAHEPATIC DUCTS AND COMMON DUCT: CBD and intrahepatic ducts normal caliber. No filling defects. INFERIOR VENA CAVA: Not well seen. AORTA: No aneurysm. RIGHT KIDNEY: Normal size, 9.5 cm. Normal echogenicity. No solid or suspicious masses. No hydr onephrosis. No calcifications. LEFT KIDNEY: Normal size, 10.2 cm. Normal echogenicity. No solid or suspicious masses. No hydr onephrosis. No calcifications. SPLEEN: Normal size, 8.6 cm. No solid masses. PERITONEAL AND PLEURAL SPACES: No ascites or effusions. OTHER: No other significant finding. IMPRESSION: Fatty infiltration of the liver. TECHNICAL DOCUMENTATION: JOB ID: [id number] [email or web address]- All Rights Reserved Reading location - IP/workstation name: [email or web address]
--- NOTE | 2017-07-22 12:51 | RADIOLOGY REPORT (SQ) ---
EXAM DESCRIPTION: NM HIDA SCAN WITH CCK COMPLETED DATE/TIME: 07/22/2017 12:34 pm REASON FOR STUDY: NAUSEA AND VOMITING R11.2 NAUSEA WITH VOMITING, UNSPECIFIED COMPARISON: None. RADIONUCLIDE AND DOSE: DOSAGE RADIONUCLIDE: 5.4 millicuries Tc99m Mebrofenin. DOSAGE CCK: 2.5 micrograms. DOSAGE MORPHINE: Not required. The route of agent administration: Intravenous TECHNIQUE: Serial imaging right upper quadrant up to 60 minutes following injection of radionuclide. CCK injected after gallbladder visualized. LIMITATIONS: None. FINDINGS: LIVER: Normal visualization without areas of photopenia. INTRAHEPATIC BILE DUCTS: Normal size and no delay in visualization. COMMON BILE DUCT: Normal without dilatation. GALLBLADDER: Normal visualization. Calculated ejection fraction of 84%. Normal range is greater th an 35%. PHYSICAL RESPONSE: Patients presenting complaint were reproduced. OTHER: No other significant finding. IMPRESSION: 1. NORMAL STUDY WITHOUT CYSTIC OR COMMON DUCT OBSTRUCTION. NORMAL GALLBLADDER EJECTIO N FRACTION. NO EVIDENCE FOR BILIARY DYSKINESIS. 2. THE PATIENT'S SYMPTOMS WERE REPRODUCED FOLLOWING CCK ADMINISTRATION. TECHNICAL DOCUMENTATION: JOB ID: [id number]- All Rights Reserved Reading location - IP/workstation name: [email or web address]
== END ==
LOC: RAD 09:40
PROVIDERS: ATTEND Internal Medicine Gastroenterology
DX: R11.2 Nausea with vomiting, unspecified (principal)
CPT/HCPCS: 76700; 93976; 78227; J2805; A9537; Q9969

== ENCOUNTER 2017-09-18 17:54 | Observation (INO) | payer OTHER ==
[2017-09-18] MEDS ORDERED: METHYLPREDNISOLONE INJ 125 MG/2 ML SDV IV ONE (18:28)
[2017-09-18] MEDS ORDERED: LEVALBUTEROL HCL NEB 1.25 MG/3 ML AMPUL NEB ONE (18:28)
[2017-09-18 18:36] LABS: ABSOLUTE BASOPHILS # (AUTO) 0.1 10^3/uL (0.0-0.2); ABSOLUTE EOSINOPHILS # (AUTO) 0.4 10^3/uL (0.0-0.6); ABSOLUTE LYMPHOCYTES (AUTO) 3.2 10^3/uL (0.5-4.7); ABSOLUTE MONOCYTES (AUTO) 0.5 10^3/uL (0.1-1.4); BASOPHILS % (AUTO) 0.7 % (0-2); EOSINOPHILS % (AUTO) 2.9 % (0-6); HEMATOCRIT 40.4 % (36.0-47.0); HEMOGLOBIN 13.6 g/dL (12.0-15.5); LYMPHOCYTES % (AUTO) 26.4 % (13-45); MEAN CORPUSCULAR HEMOGLOBIN 32.1 pg (27.0-33.4); MEAN CORPUSCULAR HGB CONC 33.6 g/dL (32.0-36.0); MEAN CORPUSCULAR VOLUME 95 fl (80-97); MONOCYTES % (AUTO) 4.1 % (3-13); PLATELET COUNT 255 10^3/uL (150-450); RED BLOOD COUNT 4.23 10^6/uL (3.72-5.28); RED CELL DISTRIBUTION WIDTH 14.7 % (11.5-14.0); SEGMENTED NEUTROPHILS % (AUTO) 65.9 % (42-78); TOTAL CELLS COUNTED % (AUTO) 100 %; WHITE BLOOD COUNT 12.1 10^3/uL (4.0-10.5)
[2017-09-18 18:41] LABS: INTERNATIONAL RATION (INR) 0.86; PROTHROMBIN TIME 12.2 SEC (11.4-15.4)
[2017-09-18 18:42] LABS: PARTIAL THROMBOPLASTIN TIME 34.9 SEC (23.5-35.8)
[2017-09-18 18:56] LABS: ALANINE AMINOTRANSFERASE 43 U/L (9-52); ALBUMIN 4.3 g/dL (3.5-5.0); ALKALINE PHOSPHATASE 74 U/L (38-126); ANION GAP 14 (5-19); ASPARTATE AMINO TRANSFERASE 36 U/L (14-36); BILIRUBIN,DIRECT 0.3 mg/dL (0.0-0.4); BILIRUBIN,TOTAL 0.4 mg/dL (0.2-1.3); BLOOD UREA NITROGEN 15 mg/dL (7-20); CALCIUM 10.3 mg/dL (8.4-10.2); CARBON DIOXIDE 26 mmol/L (22-30); CHLORIDE 103 mmol/L (98-107); GLUCOSE 102 mg/dL (75-110); POTASSIUM 4.2 mmol/L (3.6-5.0); SODIUM 142.5 mmol/L (137-145); TOTAL PROTEIN 8.1 g/dL (6.3-8.2)
[2017-09-18 19:03] LABS: D-DIMER < 0.27 ug/mL (0.00-0.50)
[2017-09-18 19:08] LABS: NT PRO BNP 31 pg/mL (5-900)
[2017-09-18 19:11] LABS: TROPONIN I < 0.012 ng/mL
[2017-09-18 20:21] LABS: ARTERIAL BLOOD BASE EXCESS 0.5 mmol/L; ARTERIAL BLOOD H2CO3 1.41 mmol/L (1.05-1.35); ARTERIAL BLOOD HCO3 26.4 mmol/L (20-26); ARTERIAL BLOOD O2 SATURATION 60.2 % (94-98); ARTERIAL BLOOD PH 7.37 (7.35-7.45); ARTERIAL BLOOD TOTAL CO2 27.8 mmol/L (21-25)
[2017-09-18 20:25] LABS: ARTERIAL BLOOD FIO2 ROOM AIR; ARTERIAL BLOOD PO2 32.6 mmHg (80-100)
--- NOTE | 2017-09-18 20:40 | ER Document Report ---
ED Respiratory Problem - General Chief Complaint: Shortness Of Breath Stated Complaint: SHORTNESS OF BREATH Time Seen by Provider: 09/18/17 18:16 Mode of Arrival: Ambulatory Information source: Patient TRAVEL OUTSIDE OF THE [place] IN LAST 30 DAYS: No - HPI Patient complains to provider of: Asthma, Cough, Short of breath Onset: Just prior to arrival Duration: Continuous, Worse/persistent Quality of pain: No pain Severity: None Pain Level: Denies Context: Hx asthma Short of Breath: Severe Chest pain/discomfort: Tightness Cough: Productive Sputum amount: Moderate Sputum color: Clear At home treatment: Bronchodilators EMS treatments: Bronchodilators Associated symptoms: Cough. denies: Fever Similar symptoms previously: Yes Recently seen / treated by doctor: No - Related Data Allergies/Adverse Reactions: celecoxib [From Celebrex] Allergy (Severe, Verified 06/10/17 08:44) Bronchospasm hydrochlorothiazide Allergy (Intermediate, Verified 06/10/17 08:44) Bronchospasm Past Medical History - Social History Smoking Status: Current Every Day Smoker Frequency of alcohol use: Occasional Drug Abuse: Marijuana Family History: None Patient has suicidal ideation: No Patient has homicidal ideation: No - Past Medical History Cardiac Medical History: Reports: Hx Hypertension Denies: Hx Coronary Artery Disease, Hx Heart Attack Pulmonary Medical History: Reports: Hx Asthma, Hx Sleep Apnea Denies: Hx Bronchitis, Hx COPD, Hx Pneumonia Neurological Medical History: Reports: Hx Migraine. Denies: Hx Cerebrovascular Accident, Hx Seizures Renal/ Medical History: Denies: Hx Peritoneal Dialysis Musculoskeletal Medical History: Reports Hx Arthritis Past Surgical History: Reports: Hx Breast Surgery, Hx Section, Hx Gynecologic Surgery, Hx Orthopedic Surgery - Cervical fusion, Other - colonoscopy 2013 - Immunizations Hx Diphtheria, Pertussis, Tetanus Vaccination: Yes Hx Pneumococcal Vaccination: 12/19/14 Review of Systems - Review of Systems Constitutional: denies: Chills, Fever EENT: denies: Eye pain, Ear discharge Cardiovascular: No symptoms reported Respiratory: Cough, Short of breath, Sputum Gastrointestinal: No symptoms reported Genitourinary: No symptoms reported Female Genitourinary: No symptoms reported Musculoskeletal: No symptoms reported Skin: No symptoms reported Hematologic/Lymphatic: No symptoms reported Neurological/Psychological: No symptoms reported -: Yes All other systems reviewed and negative Physical Exam - Vital signs Vitals: Resp Pulse Ox 21 H 97 09/18/17 18:19 09/18/17 18:19 - General General appearance: Alert, Anxious In distress: Moderate - HEENT Head: Normocephalic, Atraumatic Eyes: Normal Pupils: PERRL - Respiratory Respiratory status: Respiratory distress Chest status: Nontender Breath sounds: Rhonchi, Wheezing Chest palpation: Normal - Cardiovascular Rhythm: Regular Heart sounds: Normal auscultation Murmur: No - Abdominal Inspection: Normal Distension: No distension Bowel sounds: Normal Tenderness: Nontender Organomegaly: No organomegaly - Back Back: Normal, Nontender - Extremities General upper extremity: Normal inspection, Nontender, Normal color, Normal ROM , Normal temperature General lower extremity: Normal inspection, Nontender, Normal color, Normal ROM , Normal temperature, Normal weight bearing. No: Vishal's sign - Neurological Neuro grossly intact: Yes Cognition: Normal Orientation: AAOx4 [place] Coma Scale Eye Opening: Spontaneous [place] Coma Scale Verbal: Oriented [place] Coma Scale Motor: Obeys Commands Lizzy Coma Scale Total: 15 Speech: Normal Motor strength normal: LUE, RUE, LLE, RLE Sensory: Normal - Psychological Associated symptoms: Normal affect, Normal mood - Skin Skin Temperature: Warm Skin Moisture: Dry Skin Color: Normal Course - Vital Signs Vital signs: Temp Pulse Resp BP Pulse Ox 18 153/81 H 96 09/18/17 18:20 09/18/17 18:20 09/18/17 20:09 - Laboratory Result Diagrams: 09/18/17 18:24 09/18/17 18:24 Laboratory results interpreted by me: 09/18/17 09/18/17 09/18/17 18:24 18:24 20:03 WBC 12.1 H RDW 14.7 H Carbonic Acid 1.41 H ABG pCO2 47.0 H ABG pO2 32.6 L* ABG HCO3 26.4 H ABG Total CO2 27.8 H ABG O2 Saturation 60.2 L Calcium 10.3 H 09/18/17 21:01 WBC RDW Carbonic Acid ABG pCO2 ABG pO2 65.8 L ABG HCO3 ABG Total CO2 25.5 H ABG O2 Saturation 93.5 L Calcium - Diagnostic Test Radiology reviewed: Image reviewed, Reports reviewed - Transfer of Care Notes: 09/18/17 23:21 Patient CARE was discussed with the hospitalist on-call Dr Valentin. He will admit patient to the hospital for further evaluation and management. Discharge - Discharge Clinical Impression: Bronchitis Asthma exacerbation Qualifiers: Asthma severity: severe Asthma persistence: persistent Qualified Code(s): J45.51 - Severe persistent asthma with (acute) exacerbation Condition: Stable Disposition: ADMITTED OBSERVATION Admitting Provider: Hospitalist Unit Admitted: Telemetry Referrals: SHILOH MOSHER PA-C [Primary Care Provider] - Follow up as needed
--- NOTE | 2017-09-18 20:57 | RADIOLOGY REPORT (SQ) ---
EXAM DESCRIPTION: CHEST SINGLE VIEW COMPLETED DATE/TIME: 09/18/2017 8:32 pm REASON FOR STUDY: shortness of breath COMPARISON: 03/25/2017 EXAM PARAMETERS: NUMBER OF VIEWS: One view. TECHNIQUE: Single frontal radiographic view of the chest acquired. RADIATION DOSE: NA LIMITATIONS: None. FINDINGS: LUNGS AND PLEURA: No opacities, masses or pneumothorax. No pleural effusion. MEDIASTINUM AND HILAR STRUCTURES: No masses. Contour normal. HEART AND VASCULAR STRUCTURES: Heart normal in size. Normal vasculature. BONES: No acute findings. HARDWARE: None in the chest. OTHER: No other significant finding. IMPRESSION: NO ACUTE RADIOGRAPHIC FINDING IN THE CHEST. TECHNICAL DOCUMENTATION: JOB ID: [id number] [employer]- All Rights Reserved Reading location - IP/workstation name: [email or web address]
[2017-09-18 21:13] LABS: ARTERIAL BLOOD BASE EXCESS 0.3 mmol/L; ARTERIAL BLOOD H2CO3 1.14 mmol/L (1.05-1.35); ARTERIAL BLOOD HCO3 24.4 mmol/L (20-26); ARTERIAL BLOOD O2 SATURATION 93.5 % (94-98); ARTERIAL BLOOD PCO2 37.8 mmHg (35-45); ARTERIAL BLOOD PH 7.43 (7.35-7.45); ARTERIAL BLOOD PO2 65.8 mmHg (80-100); ARTERIAL BLOOD TOTAL CO2 25.5 mmol/L (21-25)
[2017-09-18 21:15] LABS: ARTERIAL BLOOD FIO2 ROOMAIR
--- NOTE | 2017-09-18 21:21 | EKG REPORT ---
SEVERITY:- OTHERWISE NORMAL ECG - SINUS RHYTHM BORDERLINE LEFT AXIS DEVIATION : Confirmed by: Parker Molina 18-Sep-2017 21:20:44
[2017-09-18] MEDS ORDERED: MORPHINE SULFATE 10 MG/ML INJ IV ONE (21:26)
[2017-09-18] MEDS ORDERED: ONDANSETRON HCL INJ/PF 4 MG/2 ML SDV IV ONE (21:28)
[2017-09-18] MEDS ORDERED: LEVOFLOXACIN 750 MG/D5W RTU 750 MG/150 ML RTUPB IV ONE (22:31)
[2017-09-18] MEDS ORDERED: ACETAMINOPHEN 325 MG TABLET PO PRN (23:44)
[2017-09-18] MEDS ORDERED: IPRATROPIUM/ALBUTEROL 0.5-2.5 MG/3 ML AMPUL NEB PRN (23:44)
[2017-09-18] MEDS ORDERED: ONDANSETRON HCL INJ/PF 4 MG/2 ML SDV IV PRN (23:44)
--- NOTE | 2017-09-19 00:21 | PDOC H&P ---
History of Present Illness Admission Date/PCP: 09/18/17 23:29 SHILOH MOSHER PA-C Patient complains of: Shortness of breath, wheezing and cough History of Present Illness: ENZO MONIQUE is a 57 year old female with a past medical history of obesity, sleep apnea on CPAP, asthma hypertension presents to the emergency room with complaint of worsening shortness of breath with wheezing and productive cough. Patient reports symptoms started a few days ago with productive cough and wheezing. Patient denies fever or chills. Patient reports chest wall pain worse with breathing. Patient denies abdominal pain no nausea vomiting. Patient has been using her inhaler without improvement. Patient denies recent sick contacts or travel. On arrival to the emergency room patient was tachypneic and tachycardic with rest of the vitals stable. She was afebrile. Chest x-ray was unremarkable for acute process. White count was slightly elevated. Her d-dimer and troponin was negative. BNP was normal. She was found to have extensive bilateral wheezing. She was given continuous nebs in the emergency room however she still is symptomatic. Past Medical History Cardiac Medical History: Reports: Hypertension Denies: Coronary Artery Disease, Myocardial Infarction Pulmonary Medical History: Reports: Asthma, Sleep Apnea Denies: Bronchitis, Chronic Obstructive Pulmonary Disease (COPD), Pneumonia Neurological Medical History: Reports: Migraine Denies: Seizures Musculoskeltal Medical History: Reports: Arthritis Hematology: Denies: Anemia Past Surgical History Past Surgical History: Reports: Section, Orthopedic Surgery - Cervical fusion, Other - colonoscopy 2013 Social History Information Source: Patient Smoking Status: Current Every Day Smoker Family History Family History: None Parental Family History Reviewed: No Children Family History Reviewed: No Sibling(s) Family History Reviewed.: No Medication/Allergy Home Medications: Albuterol Sulfate [Proair HFA Inhalation Aerosol 8.5 gm MDI] 2 puff IH Q4H PRN # 1 mdi 02/12/17 Albuterol Sulfate [Proair HFA] 8.5 gm NEB PRN PRN 02/12/17 Fluticasone/Salmeterol [Advair 250-50 Diskus 28 dose] 250 mg NEB DAILY 02/12/17 Gabapentin 300 mg PO BID 02/12/17 Montelukast Sodium [Singulair 10 mg Tablet] 10 mg PO DAILY 02/12/17 Oxycodone HCl/Acetaminophen [Percocet 5-325 mg Tablet] 1 tab PO ASDIR PRN #15 tablet 03/25/17 Aspirin [Aspirin 81 mg Chewable Tablet] 81 mg PO DAILY 06/05/17 Allergies/Adverse Reactions: celecoxib [From Celebrex] Allergy (Severe, Verified 06/10/17 08:44) Bronchospasm hydrochlorothiazide Allergy (Intermediate, Verified 06/10/17 08:44) Bronchospasm Review of Systems All systems: reviewed and no additional remarkable complaints except as stated Physical Exam Vital Signs: Temp Pulse Resp BP Pulse Ox 18 153/81 H 96 09/18/17 18:20 09/18/17 18:20 09/18/17 20:09 General appearance: PRESENT: cooperative, mild distress, morbidly obese, well- developed, well-nourished Head exam: PRESENT: atraumatic, normocephalic Eye exam: ABSENT: conjunctival injection, conjunctiva pink, conjunctiva pale, EOMI, nystagmus, periorbital swelling, PERRLA, scleral icterus, other Ear exam: ABSENT: bleeding, drainage, normal external ear exam, TM's normal bilaterally, other Mouth exam: PRESENT: moist, neck supple Neck exam: ABSENT: carotid bruit, JVD, thyromegaly Respiratory exam: PRESENT: chest wall tenderness, prolonged expiratory phas, wheezes. ABSENT: crackles, rhonchi Cardiovascular exam: PRESENT: RRR, +S1, +S2, tachycardia. ABSENT: systolic murmur GI/Abdominal exam: PRESENT: distended, normal bowel sounds, soft. ABSENT: organolmegaly, tenderness Rectal exam: PRESENT: deferred Gentrourinary exam: ABSENT: ecchymosis, erythema, lacerations, lesions, scrotal swelling, testicular tenderness, urethral discharge, indwelling catheter, other Extremities exam: ABSENT: calf tenderness, clubbing, full ROM, joint swelling, pedal edema, tenderness, +1 edema, +2 edema, other Neurological exam: PRESENT: alert, altered, awake, oriented to time, oriented to situation. ABSENT: motor sensory deficit Psychiatric exam: ABSENT: suicidal ideation Skin exam: ABSENT: rash Results Laboratory Results: All labs reviewed. EKG Comments: EKG reviewed shows sinus tachycardia with nonspecific ST changes. Impressions: Chest X-Ray 09/18/17 18:29 IMPRESSION: NO ACUTE RADIOGRAPHIC FINDING IN THE CHEST. Status: Image reviewed by me Assessment & Plan - Diagnosis (1) Asthma exacerbation Qualifiers: Asthma severity: severe Asthma persistence: persistent Qualified Code(s) : J45.51 - Severe persistent asthma with (acute) exacerbation Is this a current diagnosis for this admission?: Yes Plan: Patient with acute exacerbation of asthma. Patient was in respiratory distress with tachypnea and tachycardia and mild hypoxia. Patient will be admitted under observation status for further treatment with IV Solu-Medrol and continues on as needed nebs. Chest x-ray shows no acute process. (2) Sleep apnea Is this a current diagnosis for this admission?: No Plan: We will continue CPAP at night. - Time Time Spent: 30 to 50 Minutes - Inpatient Certification Based on my medical assessment, after consideration of the patient's comorbidities, presenting symptoms, or acuity I expect that the services needed warrant INPATIENT care.: No I certify that my determination is in accordance with my understanding of Medicare's requirements for reasonable and necessary INPATIENT services [42 CFR 412.3e].: No
[2017-09-19] MEDS ORDERED: IPRATROPIUM/ALBUTEROL 0.5-2.5 MG/3 ML AMPUL NEB ONE ×2 (00:43→01:29)
[2017-09-19] MEDS: IPRATROPIUM/ALBUTEROL 0.5-2.5 MG/3 ML AMPUL NEB SCH ×6 (00:44→19:12)
[2017-09-19] MEDS ORDERED: METHYLPREDNISOLONE INJ 40 MG/1 ML SDV ONE (01:28)
[2017-09-19] MEDS: METHYLPREDNISOLONE INJ 40 MG/1 ML SDV IV SCH ×3 (01:37→14:23)
[2017-09-19] MEDS ORDERED: OXYCODONE-ACETAMINOPHEN 5-325 MG TABLET ONE (01:40)
[2017-09-19] MEDS ORDERED: OXYCODONE-ACETAMINOPHEN 5-325 MG TABLET PO ONE (01:41)
[2017-09-19 02:18] LABS: APPEARANCE,URINE CLEAR; BILIRUBIN,URINE NEGATIVE (NEGATIVE); COLOR,URINE STRAW; GLUCOSE, URINE NEGATIVE (NEGATIVE); KETONES,URINE NEGATIVE (NEGATIVE); LEUKOCYTE ESTERASE,URINE NEGATIVE (NEGATIVE); NITRITE,URINE NEGATIVE (NEGATIVE); PROTEIN,URINE NEGATIVE (NEGATIVE); URINE SPECIFIC GRAVITY 1.006; UROBILINOGEN,URINE NEGATIVE mg/dL (<2.0)
[2017-09-19] MEDS ORDERED: DIPHENHYDRAMINE HCL 25 MG CAPSULE PO ONE (02:51)
[2017-09-19] MEDS ORDERED: LEVOFLOXACIN 750 MG/D5W RTU 750 MG/150 ML RTUPB IV SCH (10:00)
[2017-09-19] MEDS ORDERED: ENOXAPARIN SODIUM INJ 40 MG/0.4 ML DISP.SYRIN SUBCUT SCH (10:00)
[2017-09-19] MEDS ORDERED: BENZONATATE 100 MG CAPSULE PO ONE ×2 (13:02→15:00)
[2017-09-19] MEDS ORDERED: HYDROCODONE/ACETAMINOPHEN 5-325 MG TABLET PO ONE (13:03)
--- NOTE | 2017-09-19 19:08 | PDOC DISCHARGE SUMMARY ---
General - Admit/Disc Date/PCP Admission Date/Primary Care Provider: 09/18/17 23:29 SHILOH MOSHER PA-C Discharge Date: 09/19/17 - Discharge Diagnosis (1) Asthma exacerbation Is this a current diagnosis for this admission?: Yes - Additional Information Prescriptions: Benzonatate [Tessalon Perle 100 mg Capsule] 100 mg PO Q8HP PRN 5 Days #15 cap PRN Reason: Codeine Phosphate/Guaifenesin [Guaifen-Codeine 100-10 mg/5 ml] 5 ml PO BID 2 Days #1 liquid Fluticasone/Salmeterol [Advair 250-50 Diskus 28 dose] 2 puff IH Q12 30 Days #1 inhaler Prednisone 40 mg PO BID 5 Days #10 tablet Home Medications: Albuterol Sulfate [Proair HFA Inhalation Aerosol 8.5 gm MDI] 2 puff IH Q4HP PRN 09/19/17 Aspirin [Aspirin EC] 81 mg PO DAILY 09/19/17 Benzonatate [Tessalon Perle 100 mg Capsule] 100 mg PO Q8HP PRN 5 Days #15 cap Codeine Phosphate/Guaifenesin [Guaifen-Codeine 100-10 mg/5 ml] 5 ml PO BID 2 Days #1 liquid 09/19/17 Fluticasone/Salmeterol [Advair 250-50 Diskus 28 dose] 2 puff IH Q12 30 Days #1 inhaler 09/19/17 Gabapentin [Neurontin 300 mg Capsule] 300 mg PO TID 09/19/17 Montelukast Sodium [Singulair 10 mg Tablet] 10 mg PO QPM 09/19/17 Prednisone 40 mg PO BID 5 Days #10 tablet 09/19/17 Rizatriptan Benzoate [Maxalt] 10 mg PO DAILYP PRN 09/19/17 Topiramate [Topamax] 100 mg PO QHS 09/19/17 History of Present Illness History of Present Illness: ENZO MONIQUE is a 57 year old female with a past medical history of obesity, sleep apnea on CPAP, asthma hypertension presents to the emergency room with complaint of worsening shortness of breath with wheezing and productive cough. Patient reports symptoms started a few days ago with productive cough and wheezing. Patient denies fever or chills. Patient reports chest wall pain worse with breathing. Patient denies abdominal pain no nausea vomiting. Patient has been using her inhaler without improvement. Patient denies recent sick contacts or travel. On arrival to the emergency room patient was tachypneic and tachycardic with rest of the vitals stable. She was afebrile. Chest x-ray was unremarkable for acute process. White count was slightly elevated. Her d-dimer and troponin was negative. BNP was normal. She was found to have extensive bilateral wheezing. She was given continuous nebs in the emergency room. Hospital Course Hospital Course: Patient was started on IV Solu-Medrol and scheduled breathing treatments. She did significantly improve over the next few hours. On reassessment she only had minimal wheezing. She did say her breathing is significantly much better. She will be discharged on prednisone for 5 days and continue breathing treatments at home. Her fluticasone/salmeterol inhaler dose will also be increased. Physical Exam Vital Signs: Temp Pulse Resp BP Pulse Ox 106 H 15 177/105 H 99 09/19/17 16:05 09/19/17 16:05 09/19/17 13:01 09/19/17 16:05 Intake & Output 09/18/17 09/19/17 09/20/17 06:59 06:59 06:59 Intake Total 150 150 Balance 150 150 General appearance: PRESENT: no acute distress, well-developed, well-nourished Head exam: PRESENT: atraumatic, normocephalic Eye exam: PRESENT: conjunctiva pink, EOMI, PERRLA. ABSENT: scleral icterus Neck exam: ABSENT: carotid bruit, JVD, lymphadenopathy, thyromegaly Respiratory exam: PRESENT: wheezes - Mild occasional wheezes in the bases, no crackles Cardiovascular exam: PRESENT: RRR. ABSENT: diastolic murmur, rubs, systolic murmur Pulses: PRESENT: normal dorsalis pedis pul Vascular exam: PRESENT: normal capillary refill GI/Abdominal exam: PRESENT: normal bowel sounds, soft. ABSENT: distended, guarding, mass, organolmegaly, rebound, tenderness Rectal exam: PRESENT: deferred Extremities exam: PRESENT: full ROM. ABSENT: calf tenderness, clubbing, pedal edema Neurological exam: PRESENT: alert, awake, oriented to person, oriented to place , oriented to time, oriented to situation, CN II-XII grossly intact. ABSENT: motor sensory deficit Skin exam: PRESENT: dry, intact, warm. ABSENT: cyanosis, rash Results Impressions: Chest X-Ray 09/18/17 18:29 IMPRESSION: NO ACUTE RADIOGRAPHIC FINDING IN THE CHEST. Qualifiers - * PATIENT BEING DISCHARGED WITH ANY OF THE FOLLOWING DIAGNOSIS: No
[2017-09-19 19:53] VITALS: BP 165/84
== END 2017-09-19 20:21 | disposition home or self-care (01) ==
LOC: ER 17:54 → EH 23:29
PROVIDERS: ADMIT Internal Medicine; ATTEND Internal Medicine
DX: J45.51 Severe persistent asthma with (acute) exacerbation (principal); G47.30 Sleep apnea, unspecified; R09.02 Hypoxemia; R00.0 Tachycardia, unspecified; F17.200 Nicotine dependence, unspecified, uncomplicated; F12.10 Cannabis abuse, uncomplicated; Z79.82 Long term (current) use of aspirin; Z79.899 Other long term (current) drug therapy
CPT/HCPCS: 93005; 94640 ×3; 99285; 96374; 36415; 87040; 87086; 82803; 85025; 85610; 85730; 80053; 81001; 84484; 85379; 83880; 71045; 93010; 36600; G0378; J2920; J2930; J2270; J1650; J3490 ×2; J2405; J1956 ×2; J7620

== ENCOUNTER 2017-10-12 12:14 | Emergency (ER) | payer OTHER ==
[2017-10-12 12:27] VITALS: BP 175/88
[2017-10-12] MEDS ORDERED: TETRACAINE HCL 0.5% OPH SOLN 2 ML OS ONE (12:27)
--- NOTE | 2017-10-12 12:34 | ER Document Report ---
HPI - HPI Patient complains to provider of: pink eye Onset: This afternoon Onset/Duration: Gradual Quality of pain: Other - itching Pain Level: 3 Context: Patient presents complaining of left eye redness and itching that started today. Patient does report some drainage to her eye lid. Patient does wear contacts although she states she has not worn any contact lenses for at least 3 weeks. Patient is concerned she has pinkeye. Associated Symptoms: Other - eye redness. denies: Fever Exacerbated by: Denies Relieved by: Denies Similar symptoms previously: Yes Recently seen / treated by doctor: No - ROS ROS below otherwise negative: Yes Systems Reviewed and Negative: Yes All other systems reviewed and negative - CONSTITUTIONAL Constitutional: DENIES: Fever, Chills - EENT EENT: REPORTS: Eye problems - left eye - REPRODUCTIVE Reproductive: DENIES: : - DERM Skin Color: Normal Skin Problems: None Past Medical History - General Information source: Patient - Social History Smoking Status: Current Every Day Smoker Smoking Education Provided: Yes Frequency of alcohol use: None Drug Abuse: None Occupation: [employer] Family History: None Patient has suicidal ideation: No Patient has homicidal ideation: No - Past Medical History Cardiac Medical History: Reports: Hx Hypertension Denies: Hx Coronary Artery Disease, Hx Heart Attack Pulmonary Medical History: Reports: Hx Asthma, Hx Sleep Apnea Denies: Hx Bronchitis, Hx COPD, Hx Pneumonia Neurological Medical History: Reports: Hx Migraine. Denies: Hx Cerebrovascular Accident, Hx Seizures Renal/ Medical History: Denies: Hx Peritoneal Dialysis Musculoskeletal Medical History: Reports Hx Arthritis Past Surgical History: Reports: Hx Breast Surgery, Hx Section, Hx Gynecologic Surgery, Hx Orthopedic Surgery - Cervical fusion, Other - colonoscopy 2013 - Immunizations Hx Diphtheria, Pertussis, Tetanus Vaccination: Yes Hx Pneumococcal Vaccination: 12/19/14 Vertical Provider Document - CONSTITUTIONAL Agree With Documented VS: Yes Exam Limitations: No Limitations General Appearance: WD/WN, No Apparent Distress - INFECTION CONTROL TRAVEL OUTSIDE OF THE [place] IN LAST 30 DAYS: No - HEENT HEENT: Atraumatic, Normocephalic Notes: Mild injection of the sclera left eye with tearing. Mucoid drainage noted to the eyelashes. Extraocular movements intact. No corneal abrasion, dendrite, or foreign body. Lid everted, no foreign body noted. Intraocular pressure of left eye 20 mmhg - NECK Neck: Normal Inspection - RESPIRATORY Respiratory: No Respiratory Distress - BACK Back: Normal Inspection - MUSCULOSKELETAL/EXTREMETIES Musculoskeletal/Extremeties: MAEW - NEURO Level of Consciousness: Awake, Alert, Appropriate Motor/Sensory: No Motor Deficit - DERM Integumentary: Warm, Dry, No Rash Course - Vital Signs Vital signs: Temp Pulse Resp BP Pulse Ox 98.5 F 81 20 175/88 H 100 10/12/17 12:24 10/12/17 12:24 10/12/17 12:24 10/12/17 12:24 10/12/17 12:24 Discharge - Discharge Clinical Impression: Conjunctivitis Qualifiers: Conjunctivitis type: unspecified Laterality: left Qualified Code(s): H10.9 - Unspecified conjunctivitis Condition: Stable Disposition: HOME, SELF-CARE Instructions: Conjunctivitis ([facility]), Eyedrop Use ([facility]) Additional Instructions: Return immediately for any new or worsening symptoms Followup with your primary care provider, call tomorrow to make a followup appointment Follow-up with ophthalmology for any persistent pain or problems Good handwashing Prescriptions: Polymyxin B Sulfate/Tmp [Polytrim Oph Soln 10 ml] 1 drop LFT_EYE ASDIR #1 bottle Forms: Smoking Cessation Education, Return to Work Referrals: SHILOH MOSHER PA-C [Primary Care Provider] - Follow up as needed [facility] [Provider Group] - Follow up as needed [facility] [Provider Group] - Follow up as needed
[2017-10-12] MEDS ORDERED: TETRACAINE HCL 0.5% OPH SOLN 4 ML OS ONE (12:44)
== END 2017-10-12 13:08 | disposition home or self-care (01) ==
LOC: ER 12:14
DX: H10.9 Unspecified conjunctivitis (principal); F17.200 Nicotine dependence, unspecified, uncomplicated; I10 Essential (primary) hypertension
CPT/HCPCS: 99282; J3490

== ENCOUNTER 2017-12-12 10:27 | Emergency (ER) | payer OTHER ==
[2017-12-12 11:51] VITALS: BP 153/76
--- NOTE | 2017-12-12 12:04 | ER Document Report ---
ED ENT - General Chief Complaint: Ear Pain Stated Complaint: EAR ACHE Time Seen by Provider: 12/12/17 10:53 Mode of Arrival: Ambulatory Information source: Patient Notes: Patient is a 57-year-old female comes emergency room complaining of left ear pain. Patient states she went to the [facility] on Saturday and was given oral antibiotics and antibiotic drops. She is not sure with the oral antibiotic is but she is on drops that are ciprofloxacin and fluocinolone combination. She states that the pain is so severe she cannot sleep at night and does not seem to be getting any better. Pain actually started this past Saturday night so she has had 4 days of the drops in her ears. She looks uncomfortable. TRAVEL OUTSIDE OF THE [place] IN LAST 30 DAYS: No - HPI Patient complains to provider of: Ear problem Onset: Other - 4 days ago Onset/Duration: Sudden, Persistent, Worse Quality of pain: Achy, Sharp, Stabbing Severity: Moderate Pain Level: 3 Context: Recent Illness Location of pain: Ears Associated symptoms: Chills, Ear pain, Ear drainage, Fever. denies: Ear trauma Similar symptoms previously: Yes Recently seen / treated by doctor: Yes - Related Data Allergies/Adverse Reactions: celecoxib [From Celebrex] Allergy (Severe, Verified 10/12/17 12:15) Bronchospasm lisinopril Allergy (Severe, Verified 12/12/17 10:30) Bronchospasm hydrochlorothiazide Allergy (Intermediate, Verified 10/12/17 12:15) Bronchospasm Past Medical History - General Information source: Patient, Relative - Social History Smoking Status: Never Smoker Cigarette use (# per day): No Chew tobacco use (# tins/day): No Smoking Education Provided: No Frequency of alcohol use: None Drug Abuse: None Family History: None, Reviewed & Not Pertinent Patient has suicidal ideation: No Patient has homicidal ideation: No - Past Medical History Cardiac Medical History: Reports: Hx Hypertension Denies: Hx Coronary Artery Disease, Hx Heart Attack Pulmonary Medical History: Reports: Hx Asthma, Hx Sleep Apnea Denies: Hx Bronchitis, Hx COPD, Hx Pneumonia Neurological Medical History: Reports: Hx Migraine. Denies: Hx Cerebrovascular Accident, Hx Seizures Renal/ Medical History: Denies: Hx Peritoneal Dialysis Musculoskeletal Medical History: Reports Hx Arthritis Past Surgical History: Reports: Hx Breast Surgery, Hx Section, Hx Gynecologic Surgery, Hx Orthopedic Surgery - Cervical fusion, Other - colonoscopy 2013 - Immunizations Hx Diphtheria, Pertussis, Tetanus Vaccination: Yes Hx Pneumococcal Vaccination: 12/19/14 Review of Systems - Review of Systems Constitutional: No symptoms reported EENT: Ear pain, Ear discharge, Nose congestion Cardiovascular: No symptoms reported Respiratory: No symptoms reported Gastrointestinal: No symptoms reported Genitourinary: No symptoms reported Female Genitourinary: No symptoms reported Musculoskeletal: No symptoms reported Skin: No symptoms reported Hematologic/Lymphatic: No symptoms reported Neurological/Psychological: No symptoms reported -: Yes All other systems reviewed and negative Physical Exam - Vital signs Vitals: Temp Pulse Resp BP Pulse Ox 98.5 F 86 18 172/82 H 96 12/12/17 10:37 12/12/17 10:37 12/12/17 10:37 12/12/17 10:37 12/12/17 10:37 Interpretation: Hypertensive - Notes Notes: PHYSICAL EXAMINATION: GENERAL: Well-appearing, well-nourished and in no acute distress. HEAD: Atraumatic, normocephalic. EYES: Pupils equal round and reactive to light, extraocular movements intact, conjunctiva are normal. ENT: Examination of patient's left ear showed that there is a moderate amount of erythema with what appears to be traumatic external canal findings. The floor of the external canal is very erythematous there is a portion of it closest to the entrance to the ear that is almost a lesion bloody tissue. Further into the canal it lessens its severity. There appears that one point she may have been oozing a little bit of blood from it. This looks like either a Q-tip gone bad or a Norman pin type of a scratch or even a pen used to try to eliminate the itch in the year. Turn turned into a otitis externa presentation that is pretty profound. The canal is not swollen shut. There is still no need to put in a wick. Patient was placed on the Cipro Floxin fluocinolone combination and has been using it twice a day for the past 4 days. I presume this is the appropriate treatment given that it some anti-biotic along with an anti-fungal medication. I still believe there is been enough time for it to do the job yet. The TM is slightly bulging with a little fluid level behind it. Patient has some tenderness on the TMJ area and also some swelling at the anterior cervical chain on the left side. NECK: Sided unilateral lymphadenopathy of the anterior cervical chain. LUNGS: Breath sounds clear to auscultation bilaterally and equal. No wheezes rales or rhonchi. HEART: Regular rate and rhythm without murmurs ABDOMEN: Soft, nontender, nondistended abdomen. No guarding, no rebound. No masses appreciated. Female : deferred Musculoskeletal: Normal range of motion, no pitting or edema. No cyanosis. NEUROLOGICAL: Cranial nerves grossly intact. Normal speech, normal gait. Normal sensory, motor exams PSYCH: Normal mood, normal affect. SKIN: Warm, Dry, normal turgor, no rashes or lesions noted. Course - Re-evaluation Re-evalutation: 12/12/17 21:58 Patient requested that I refill the antibiotic combination that she had. I had to call her pharmacist even find out what it was. She gave me the name of the when I looked it up outpatient prescription was 400 and some dollars. Patient informed me that the clinic she went to gave her a coupon and will only cost her $40. I was not able to meet that. I did not see a real need for the antifungal so I prescribe her the Ciprodex from here. Although I felt like the TM was intact I just was not 100% convinced so I figured the Ciprodex would be our best option. I have informed patient she needs to continue with that and with her oral antibiotic and she needs to not put anything in her ear. I have also given her the name of the marker shipments that we sometimes are often I should say use from [place] Dr. Blair to contact his office to follow-up with should it not be progressing in the next couple of days. Patient agreed to this treatment plan. I did write her for a little pain medication because this was an ugly looking here. I did go up been discussed with a couple of the doctors any type of a Fair 8 numbing medication which you use to give but it has been taken off the market so there is no numbing medication for the external canals I note today. - Vital Signs Vital signs: Temp Pulse Resp BP Pulse Ox 97.6 F 78 18 153/76 H 95 12/12/17 11:51 12/12/17 11:51 12/12/17 11:51 12/12/17 11:51 12/12/17 11:51 Discharge - Discharge Clinical Impression: Otitis externa Qualifiers: Otitis externa type: diffuse Chronicity: acute Laterality: left Qualified Code( s): H60.312 - Diffuse otitis externa, left ear Condition: Stable Disposition: HOME, SELF-CARE Instructions: Use of Ear Drops ([facility]), Oral Narcotic Medication ([facility]), Otitis Externa ([facility]) Additional Instructions: As we discussed you are being treated appropriately for this your condition. Your external canal on the base of at the floor is very irritated and to the point of bleeding. Highly recommend you do not stick anything in that ear. Continue with the drops that you have and I will reorder you some more. We will also give you a little bit of pain medication for sleep at night. Is just going to take some time. I will also give you the name of the ears nose and throat doctor that sees patients for us you may contact his office to see if he can accommodate you. This will be her most likely source for the definitive answer on how to treat this. So if is not getting better please contact his office The medication that you were given even with my discount card is $243 so I believe it is going to be useless for me to write you for that prescription. I am giving you Ciprodex through the hospital I believe that is all you will need. It does not have a antifungal in it but I believe that you do not need that at this time. You will put 4 drops in that ear twice a day. Prescriptions: Hydrocodone/Acetaminophen [Camas 5-325 mg Tablet] 1 tab PO Q4 #10 tablet Forms: Elevated Blood Pressure, Return to Work Referrals: SHILOH MOSHER PA-C [Primary Care Provider] - Follow up as needed ОЛЬГА BLAIR DO [ASSOCIATE] - Follow up as needed
[2017-12-12] MEDS ORDERED: CIPROFLOXACIN HCL/DEXAMETH OTIC DROP 7.5 ML AS ONE (12:14)
== END 2017-12-12 12:36 | disposition home or self-care (01) ==
LOC: ER 10:27
DX: H60.312 Diffuse otitis externa, left ear (principal); I10 Essential (primary) hypertension; M19.90 Unspecified osteoarthritis, unspecified site; Z88.8 Allergy status to other drugs, medicaments and biological substances
CPT/HCPCS: 99282; J3490

== ENCOUNTER 2018-05-15 13:14 | Emergency (ER) | payer OTHER ==
[2018-05-15 13:29] VITALS: BP 138/75
[2018-05-15] MEDS ORDERED: KETOROLAC TROMETHAMINE 60 MG/2 ML SDV IM ONE (13:52)
[2018-05-15] MEDS ORDERED: CYCLOBENZAPRINE HCL 10 MG TABLET PO ONE (13:52)
[2018-05-15] MEDS ORDERED: HYDROCODONE/ACETAMINOPHEN 5-325 MG (6 TAB/ER DISP) PO PRN (13:54)
--- NOTE | 2018-05-15 13:56 | ER Document Report ---
HPI - HPI Time Seen by Provider: 05/15/18 13:32 Pain Level: 3 Notes: Patient is an otherwise healthy 58-year-old female who presents to the emergency department with low back pain that started on Saturday. She reports pain runs across the low back and radiates into both buttocks. She denies any recent injury or episode of heavy lifting that she can recall. Patient denies any bowel incontinence, urinary retention or saddle anesthesia. Patient has not been sick lately and has not had any fever. - REPRODUCTIVE Reproductive: DENIES: : Past Medical History - General Information source: Patient - Social History Smoking Status: Never Smoker Frequency of alcohol use: None Drug Abuse: None Family History: None, Reviewed & Not Pertinent - Past Medical History Cardiac Medical History: Reports: Hx Hypertension Denies: Hx Coronary Artery Disease, Hx Heart Attack Pulmonary Medical History: Reports: Hx Asthma, Hx Sleep Apnea Denies: Hx Bronchitis, Hx COPD, Hx Pneumonia Neurological Medical History: Reports: Hx Migraine. Denies: Hx Cerebrovascular Accident, Hx Seizures Renal/ Medical History: Denies: Hx Peritoneal Dialysis Musculoskeletal Medical History: Reports Hx Arthritis Past Surgical History: Reports: Hx Breast Surgery, Hx Section, Hx Gynecologic Surgery, Hx Orthopedic Surgery - Cervical fusion, Other - colonoscopy 2013 - Immunizations Hx Diphtheria, Pertussis, Tetanus Vaccination: Yes Hx Pneumococcal Vaccination: 12/19/14 Vertical Provider Document - CONSTITUTIONAL Notes: PHYSICAL EXAMINATION: GENERAL: Well-appearing, well-nourished and in no acute distress. HEAD: Atraumatic, normocephalic. EYES: Pupils equal round extraocular movements intact, conjunctiva are normal. ENT: Nares patent NECK: Normal range of motion LUNGS: No respiratory distress Musculoskeletal: Tenderness to palpation to bilateral lumbar paraspinous muscles, no vertebral tenderness, step-off or deformity noted. NEUROLOGICAL: Normal speech, normal gait. PSYCH: Normal mood, normal affect. SKIN: Warm, Dry, normal turgor, no rashes or lesions noted. - INFECTION CONTROL TRAVEL OUTSIDE OF THE [place] IN LAST 30 DAYS: No Course - Re-evaluation Re-evalutation: Patient was treated in the emergency department with Toradol and Flexeril. Patient reports improvement of her pain after administration of these medications. I do not feel that imaging is indicated at this time as it seems most consistent with musculoskeletal strain and patient has not had any injury or direct trauma to the spine. Patient denies any urinary symptoms. Patient will be discharged home in stable condition with muscle relaxers and pain medica tions. Patient also instructed to take ibuprofen. Patient will follow up with her primary care provider. ED return precautions were discussed and patient verbalized understanding of same. - Vital Signs Vital signs: Temp Pulse Resp BP Pulse Ox 98.1 F 63 16 138/75 H 100 05/15/18 13:28 05/15/18 13:28 05/15/18 13:28 05/15/18 13:28 05/15/18 13:28 Discharge - Discharge Clinical Impression: Low back pain Qualifiers: Chronicity: acute Back pain laterality: bilateral Sciatica presence: with sciatica Sciatica laterality: bilateral sciatica Qualified Code(s): M54.42 - Lumbago with sciatica, left side Condition: Stable Disposition: HOME, SELF-CARE Additional Instructions: LOW BACK PAIN: Three out of every four people will have an episode of disabling back pain during their lifetime. Most commonly the pain is due to straining of the muscles and ligaments in the low back. Usual treatment includes: (1) Rest on a firm surface. Avoid lying on your stomach. (2) Ice pack the painful area. After a few days, gentle heat may be used intermittently to relax the area, or ice packs can be continued. (3) Medication may be needed -- muscle relaxers and antiinflammatory medicines are commonly used. (4) As the back improves, exercises are prescribed to strengthen the back and abdominal muscles. Your doctor will advise you on the proper care for your back at each stage in your recovery. You may be better in a few days -- or healing may take several weeks. If new symptoms of a "herniated disc" (radiation of pain, numbness, or tingling down the back of the leg or weakness in the leg) occur, you should be re-examined. Further testing may be necessary. PAIN MEDICATION INJECTION: You have received an injection of a pain medication. You should experience significant pain relief within 45 minutes. If this injection was a narcotic -- it will impair your judgement, slow your reaction time and make you sleepy (as well as relieve your pain). Narcotics also can cause nausea. You should not drive, work with machinery, or perform any task requiring mental alertness until all effects of the medication are gone -- six to eight hours. Do not take any alcohol, or sedatives, and do not take any other medication without checking with your physician. ORAL NARCOTIC MEDICATION: You have been given a prescription for pain control. This medication is a narcotic. It's best taken with food, as nausea can result if taken on an empty stomach. Don't operate machinery or drive within six hours of taking this medication. Do not combine this medicine with alcohol, or with any medication which can cause sedation (such as cold tablets or sleeping pills) unless you get permission from the physician. Narcotics tend to cause constipation. If possible, drink plenty of fluids and eat a diet high in fiber and fruits. Please be aware that prescription narcotics also have the potential for abuse. People become addicted to these medications because of the general sense of wellbeing that they induce. This feeling along with a significant reduction in tension, anxiety, and aggression provides a stimulating seductive quality to these drugs. Once your pain is under control, we encourage you to discard your unused narcotics. MUSCLE RELAXERS: Muscle relaxing medications are usually prescribed for acute muscle spasm or injury to the neck and back. They are often combined with antiinflammatory pain medication for increased relief. You may stop the muscle relaxer when the pain and stiffness have improved. Start the medication again if spasms recur. Muscle relaxers may cause drowsiness, especially with the first dose. Do not operate machinery or drive while under the effects of the medication. Most muscle relaxers last up to 24 hours. Do not combine the medication with a lcohol. WARM PACKS: After approximately two days, apply gentle heat (such as a heating pad or hot water bottle) for about 20 to 30 minutes about every two hours -- at least four times daily. Warmth and elevation will help you make a more rapid recovery, and will ease the pain considerably. Do not use HOT heat, and never apply heat for longer than 30 minutes. The continuous heat can invisibly damage skin and muscles -- even when no burn is seen on the surface. Damaged muscles can make you MORE sore. FOLLOW-UP CARE: If you have been referred to a physician for follow-up care, call the physicians office for an appointment as you were instructed or within the next two days. If you experience worsening or a significant change in your symptoms, notify the physician immediately or return to the Emergency Department at any time for re-evaluation. Please continue to take ibuprofen 600 mg every 6 hours. Use the other medications as prescribed. Continue to move around and do light range of motion exercises. Follow-up with your primary care provider in 5-7 days if not improving. Prescriptions: Cyclobenzaprine HCl [Flexeril 10 mg Tablet] 10 mg PO TIDP PRN #15 tab PRN Reason: Forms: Return to Work Referrals: SHILOH MOSHER PA-C [Primary Care Provider] - Follow up as needed
== END 2018-05-15 14:07 | disposition home or self-care (01) ==
LOC: ER 13:14
DX: M54.42 Lumbago with sciatica, left side (principal); I10 Essential (primary) hypertension; J45.909 Unspecified asthma, uncomplicated
CPT/HCPCS: 99283; 96372; J1885

== ENCOUNTER 2018-08-10 12:04 | Emergency (ER) | payer OTHER ==
[2018-08-10 12:12] VITALS: BP 178/91
[2018-08-10] MEDS ORDERED: POLYMYXIN B SULFATE/TMP OPH SOLN (10 ML/ER DISP) OS PRN (12:52)
--- NOTE | 2018-08-10 12:54 | ER Document Report ---
HPI - HPI Patient complains to provider of: pink eye left Time Seen by Provider: 08/10/18 12:18 Pain Level: 2 Context: 58-year-old female presents to the emergency department chief complaint of pinkeye. She says that it started a day or 2 ago she noticed tearing and redness in her eye she states that it itches. She denies any pain. She denies some mild blurred vision but does not affect her ability to drive. She is not a contact lens wearer. She denies fevers or chills, denies neck stiffness, denies earache or sore throat, denies acute shortness of breath or chest pain, no other complaints. - REPRODUCTIVE Reproductive: DENIES: : Past Medical History - Social History Smoking Status: Unknown if Ever Smoked Family History: None, Reviewed & Not Pertinent - Past Medical History Cardiac Medical History: Reports: Hx Hypertension Denies: Hx Coronary Artery Disease, Hx Heart Attack Pulmonary Medical History: Reports: Hx Asthma, Hx Sleep Apnea Denies: Hx Bronchitis, Hx COPD, Hx Pneumonia Neurological Medical History: Reports: Hx Migraine. Denies: Hx Cerebrovascular Accident, Hx Seizures Renal/ Medical History: Denies: Hx Peritoneal Dialysis Musculoskeletal Medical History: Reports Hx Arthritis Past Surgical History: Reports: Hx Breast Surgery, Hx Section, Hx Gynecologic Surgery, Hx Orthopedic Surgery - Cervical fusion, Other - colonoscopy 2013 - Immunizations Hx Diphtheria, Pertussis, Tetanus Vaccination: Yes Hx Pneumococcal Vaccination: 12/19/14 Vertical Provider Document - CONSTITUTIONAL Notes: PHYSICAL EXAMINATION: Reviewed vital signs and charting by RN GENERAL: Alert, interacts well. No acute distress. HEAD: Normocephalic, atraumatic. EYES: Pupils equal and round. Extraocular movements intact. Mild injection of the sclera left eye with tearing. No corneal abrasion, dendrite, or foreign body. Lid everted, no foreign body noted. ENT: Oral mucosa moist, tongue midline. EXTREMITIES: Moves all 4 extremities spontaneously. No edema, No cyanosis. PSYCH: Normal affect, normal mood. SKIN: Warm, dry, normal turgor. No rashes or lesions noted. - INFECTION CONTROL TRAVEL OUTSIDE OF THE [place] IN LAST 30 DAYS: No Course - Re-evaluation Re-evalutation: 08/10/18 12:53 Patient presents with symptoms most consistent with a viral conjunctivitis. Bilateral eye involvement without purulent drainage. Patient does also have associated upper respiratory symptoms again suggesting a viral etiology of the conjunctivitis. Child is otherwise very well in appearance, no acute distress, vitals within normal limits. I have discussed with the parents at the bedside for likely viral nature of this presentation. They will be discharged with a prescription for Polytrim eyedrops which they can begin if the patient does not have resolution of symptoms spontaneously in the next 2-3 days. Parents are in agreement with this plan and verbalized indications to return to the emergency department. - Vital Signs Vital signs: Temp Pulse Resp BP Pulse Ox 98 F 77 18 178/91 H 100 08/10/18 12:10 08/10/18 12:10 08/10/18 12:10 08/10/18 12:10 08/10/18 12:10 Discharge - Discharge Clinical Impression: Conjunctivitis Qualifiers: Conjunctivitis type: acute Acute conjunctivitis type: unspecified Laterality: left Qualified Code(s): H10.32 - Unspecified acute conjunctivitis, left eye Condition: Good Disposition: HOME, SELF-CARE Instructions: Conjunctivitis ([facility]), Eyedrop Use ([facility]) Additional Instructions: Your eye redness is likely due to a viral infection. You have been sent home with a prescription for eyedrops which you can start if your symptoms worsen or fail to improve in that time. Please return immediately if you begin to have worsening discomfort in the eyes, vision loss, swelling in the eyes, fever, or you have any other symptoms that are worrisome to you. Referrals: SHILOH MOSHER PA-C [Primary Care Provider] - Follow up as needed
== END 2018-08-10 13:05 | disposition home or self-care (01) ==
LOC: ER 12:04
DX: H10.32 Unspecified acute conjunctivitis, left eye (principal); I10 Essential (primary) hypertension; Z98.1 Arthrodesis status
CPT/HCPCS: 99283; J3490

== ENCOUNTER 2018-09-12 12:16 | Emergency (ER) | payer OTHER ==
[2018-09-12] MEDS ORDERED: ONDANSETRON HCL INJ/PF 4 MG/2 ML SDV IV ONE (13:50)
--- NOTE | 2018-09-12 13:52 | ER Document Report ---
ED Medical Screen (RME) - General Chief Complaint: Nausea/Vomiting Stated Complaint: DIZZINESS Time Seen by Provider: 09/12/18 13:39 Primary Care Provider: SHILOH MOSHER PA-C [Primary Care Provider] - Follow up as needed Notes: Patient is a 58-year-old female past history of hypertension, states was taken off her medications approximately 2 years ago. Presents with increase in her blood pressure over the last couple of days. Patient states today she has a "horrible headache." States she is also had multiple episodes of vomiting. Patient states she does have a history of migraines and was on Topamax approxima tely a year ago. Patient states "this feels way different than my migraines." Patient is complaining of generalized headache "all over." Patient's denying any abdominal pain, chest pain, shortness of breath. GENERAL: Alert, interacts well. No acute distress. HEAD: Normocephalic, atraumatic. NEUROLOGICAL: Alert and oriented x3. Normal speech. [place] stroke scale 0 I have greeted and performed a rapid initial assessment of this patient. A comprehensive ED assessment and evaluation of the patient, analysis of test results and completion of the medical decision making process will be conducted by additional ED providers. I have specifically instructed the patient or family members with the patient to immediately return to any nursing staff should anything change in the patient's condition or with their chief complaint. This medical record was dictated with voice recognizing software. There may be grammatical, syntax errors that are unintended. TRAVEL OUTSIDE OF THE [place] IN LAST 30 DAYS: No - Related Data Allergies/Adverse Reactions: celecoxib [From Celebrex] Allergy (Severe, Verified 09/12/18 12:28) Bronchospasm lisinopril Allergy (Severe, Verified 09/12/18 12:28) Bronchospasm hydrochlorothiazide Allergy (Intermediate, Verified 09/12/18 12:28) Bronchospasm Past Medical History - Past Medical History Cardiac Medical History: Reports: Hx Hypertension Denies: Hx Coronary Artery Disease, Hx Heart Attack Pulmonary Medical History: Reports: Hx Asthma, Hx Sleep Apnea Denies: Hx Bronchitis, Hx COPD, Hx Pneumonia Neurological Medical History: Reports: Hx Migraine. Denies: Hx Cerebrovascular Accident, Hx Seizures Renal/ Medical History: Denies: Hx Peritoneal Dialysis Musculoskeltal Medical History: Reports Hx Arthritis Past Surgical History: Reports: Hx Breast Surgery, Hx Section, Hx Gynecologic Surgery, Hx Orthopedic Surgery - Cervical fusion, Other - colonoscopy 2013 - Immunizations Hx Diphtheria, Pertussis, Tetanus Vaccination: Yes Influenza Administration Date for 11/2016 - 04/2017 Season: 12/19/16 Physical Exam - Vital signs Vitals: Temp Pulse Resp BP Pulse Ox 98.2 F 78 16 181/108 H 94 09/12/18 12:36 09/12/18 12:36 09/12/18 12:36 09/12/18 12:36 09/12/18 12:36 Course - Vital Signs Vital signs: Temp Pulse Resp BP Pulse Ox 98.2 F 78 16 181/108 H 94 09/12/18 12:36 09/12/18 12:36 09/12/18 12:36 09/12/18 12:36 09/12/18 12:36 Doctor's Discharge - Discharge Referrals: SHILOH MOSHER PA-C [Primary Care Provider] - Follow up as needed
--- NOTE | 2018-09-12 14:52 | RADIOLOGY REPORT (SQ) ---
EXAM DESCRIPTION: CT HEAD WITHOUT COMPLETED DATE/TIME: 09/12/2018 2:43 pm REASON FOR STUDY: headache, vomiting, HTN COMPARISON: None. TECHNIQUE: Axial images acquired through the brain without intravenous contrast. Images reviewed wi th bone, brain and subdural windows. Additional sagittal and coronal reconstructions were generated. Images stored on PACS. All CT scanners at this facility use dose modulation, iterative reconstruction, and/or weight based d osing when appropriate to reduce radiation dose to as low as reasonably achievable (ALARA). [facility]: Dose Right [facility]: CareDose [facility]: Dose Right [facility]: Teradose 4D [facility]: [email or web address] RADIATION DOSE: CT Rad equipment meets quality standard of care and radiation dose reduction techniq ues were employed. CTDIvol: 53.2 mGy. DLP: 991 mGy-cm. mGy. LIMITATIONS: None. FINDINGS: VENTRICLES: Normal size and contour. CEREBRUM: No masses. No hemorrhage. No midline shift. No evidence for acute infarction. Normal gra y/white matter differentiation. No areas of low density in the white matter. CEREBELLUM: No masses. No hemorrhage. No alteration of density. No evidence for acute infarction. EXTRAAXIAL SPACES: No fluid collections. No masses. ORBITS AND GLOBE: No intra- or extraconal masses. Normal contour of globe without masses. CALVARIUM: No fracture. PARANASAL SINUSES: No fluid or mucosal thickening. SOFT TISSUES: No mass or hematoma. OTHER: No other significant finding. IMPRESSION: NORMAL BRAIN CT WITHOUT CONTRAST. EVIDENCE OF ACUTE STROKE: NO. COMMENT: Quality ID # [id number]: Final reports with documentation of one or more dose reduction techniques (e.g., Automated exposure control, adjustment of the mA and/or kV according to patient size, use of iterative reconstruction technique) TECHNICAL DOCUMENTATION: JOB ID: [id number] [employer]- All Rights Reserved Reading location - IP/workstation name: [email or web address]
[2018-09-12 15:12] LABS: ABSOLUTE BASOPHILS # (AUTO) 0.1 10^3/uL (0.0-0.2); ABSOLUTE EOSINOPHILS # (AUTO) 0.1 10^3/uL (0.0-0.6); ABSOLUTE LYMPHOCYTES (AUTO) 2.1 10^3/uL (0.5-4.7); ABSOLUTE MONOCYTES (AUTO) 0.4 10^3/uL (0.1-1.4); ABSOLUTE NEUT (AUTO) 4.7 10^3/uL (1.7-8.2); BASOPHILS % (AUTO) 0.9 % (0-2); EOSINOPHILS % (AUTO) 1.5 % (0-6); HEMATOCRIT 45.1 % (36.0-47.0); HEMOGLOBIN 15.1 g/dL (12.0-15.5); LYMPHOCYTES % (AUTO) 28.7 % (13-45); MEAN CORPUSCULAR HEMOGLOBIN 32.7 pg (27.0-33.4); MEAN CORPUSCULAR HGB CONC 33.5 g/dL (32.0-36.0); MEAN CORPUSCULAR VOLUME 98 fl (80-97); MONOCYTES % (AUTO) 5.9 % (3-13); PLATELET COUNT 296 10^3/uL (150-450); RED BLOOD COUNT 4.63 10^6/uL (3.72-5.28); RED CELL DISTRIBUTION WIDTH 14.6 % (11.5-14.0); TOTAL CELLS COUNTED % (AUTO) 100 %; WHITE BLOOD COUNT 7.5 10^3/uL (4.0-10.5)
[2018-09-12 15:23] LABS: APPEARANCE,URINE CLEAR; BILIRUBIN,URINE NEGATIVE (NEGATIVE); COLOR,URINE YELLOW; GLUCOSE, URINE NEGATIVE (NEGATIVE); KETONES,URINE NEGATIVE (NEGATIVE); LEUKOCYTE ESTERASE,URINE NEGATIVE (NEGATIVE); NITRITE,URINE NEGATIVE (NEGATIVE); PROTEIN,URINE NEGATIVE (NEGATIVE); URINE SPECIFIC GRAVITY 1.015; UROBILINOGEN,URINE NEGATIVE mg/dL (<2.0)
[2018-09-12 15:29] LABS: ALANINE AMINOTRANSFERASE 44 U/L (9-52); ALBUMIN 4.3 g/dL (3.5-5.0); ALKALINE PHOSPHATASE 76 U/L (38-126); ANION GAP 10 (5-19); ASPARTATE AMINO TRANSFERASE 39 U/L (14-36); BILIRUBIN,DIRECT 0.2 mg/dL (0.0-0.4); BILIRUBIN,TOTAL 0.4 mg/dL (0.2-1.3); BLOOD UREA NITROGEN 14 mg/dL (7-20); CALCIUM 9.6 mg/dL (8.4-10.2); CARBON DIOXIDE 28 mmol/L (22-30); CHLORIDE 105 mmol/L (98-107); GLUCOSE 94 mg/dL (75-110); POTASSIUM 4.4 mmol/L (3.6-5.0); TOTAL PROTEIN 7.6 g/dL (6.3-8.2)
[2018-09-12] MEDS ORDERED: METOCLOPRAMIDE HCL INJ/PF 10 MG/2 ML SDV IV ONE (16:28)
[2018-09-12] MEDS ORDERED: DIPHENHYDRAMINE HCL 50 MG/ML VIAL IV ONE (16:30)
--- NOTE | 2018-09-12 17:49 | ER Document Report ---
ED General - General Chief Complaint: Nausea/Vomiting Stated Complaint: DIZZINESS Time Seen by Provider: 09/12/18 13:39 Primary Care Provider: SHILOH MOSHER PA-C [Primary Care Provider] - Follow up as needed Notes: Patient says that she has noted her blood pressure up for a few days and then today, had the onset of a headache from the frontal region bilaterally around to the back of the head. She had been having some less headache off and on all week but the headache today is more severe starting around 11 AM today. Has not had any loss of consciousness or neurologic symptoms. No fevers. Patient has been able to sleep at night. Patient has a history of migraine headaches and used to get them "all the time" but has not had one for at least a year. Does not take any headache medications. Does have high blood pressure but is not on any current medications for blood pressure. She used to be on medications, but says that it was stopped a year or 2 ago and she has been doing well. She takes her blood pressure at home and keeps up with it and says it is normally acceptable on no medications. TRAVEL OUTSIDE OF THE [place] IN LAST 30 DAYS: No - Related Data Allergies/Adverse Reactions: celecoxib [From Celebrex] Allergy (Severe, Verified 09/12/18 12:28) Bronchospasm lisinopril Allergy (Severe, Verified 09/12/18 12:28) Bronchospasm hydrochlorothiazide Allergy (Intermediate, Verified 09/12/18 12:28) Bronchospasm Past Medical History - Social History Smoking Status: Never Smoker Chew tobacco use (# tins/day): No Frequency of alcohol use: Social Drug Abuse: Marijuana Family History: None, Reviewed & Not Pertinent Patient has suicidal ideation: No Patient has homicidal ideation: No - Past Medical History Cardiac Medical History: Reports: Hx Hypertension Pulmonary Medical History: Reports: Hx Asthma, Hx Pneumonia, Hx Sleep Apnea Neurological Medical History: Reports: Hx Migraine Musculoskeletal Medical History: Reports Hx Arthritis Past Surgical History: Reports: Hx Breast Surgery, Hx Section, Hx Gynecologic Surgery, Hx Orthopedic Surgery - Cervical fusion, Bilat feet, Other - colonoscopy 2013 - Immunizations Hx Diphtheria, Pertussis, Tetanus Vaccination: Yes Hx Pneumococcal Vaccination: 12/19/14 Review of Systems - Review of Systems Notes: REVIEW OF SYSTEMS: CONSTITUTIONAL : Denies fever. Appears uncomfortable. Blood pressure 181/108 at triage. EENT: Denies eye, ear, nose or mouth or throat pain or other symptoms. CARDIOVASCULAR: Denies chest pain. RESPIRATORY: Denies cough, chest congestion, or shortness of breath. GASTROINTESTINAL: Denies abdominal pain or nausea, vomiting, or diarrhea. GENITOURINARY: Denies difficulty or painful urinating, urinary frequency, blood in urine. MUSCULOSKELETAL: Denies back or neck pain. Denies joint pain or swelling. SKIN: Denies rash or skin lesions. NEUROLOGICAL: Denies LOC or altered mental status. Denies sensory loss or motor deficits. ALL OTHER SYSTEMS REVIEWED AND NEGATIVE. Physical Exam - Vital signs Vitals: Temp Pulse Resp BP Pulse Ox 98.2 F 78 16 181/108 H 94 09/12/18 12:36 09/12/18 12:36 09/12/18 12:36 09/12/18 12:36 09/12/18 12:36 Interpretation: Hypertensive - Moderate. No: Febrile Notes: PHYSICAL EXAMINATION: GENERAL: Appears uncomfortable, but in no acute distress. Afebrile. HEAD: Atraumatic, normocephalic. EYES: Pupils equal round and reactive to light, extraocular movements intact. ENT: oropharynx clear without exudates. Moist mucous membranes. NECK: Normal range of motion, supple. No nuchal rigidity. LUNGS: Breath sounds clear and equal bilaterally. HEART: Regular rate and rhythm without murmurs. ABDOMEN: Soft, nontender. No guarding or rebound. No masses. BACK: No tenderness throughout entire back. EXTREMITIES: Normal range of motion without pain. NEUROLOGICAL: Normal speech, is able to stand and ambulate. Normal sensory, motor, and reflex exams. Awake, alert, and oriented x3. PSYCH: Normal mood, normal affect. SKIN: Warm, dry, no rashes. Course - Re-evaluation Re-evalutation: 09/12/18 17:48 She reports her headache is about 50% better. Nausea is gone. Blood pressures come down to a systolic of 150s. 09/12/18 19:48 Before discharge, patient said her headache was down to a level 2/5 now. Nausea is gone. Says she feels much better. I started her on amlodipine for her hypertension. She is getting prescriptions for Reglan and she can buy [id number] Benadryl to take along with it. - Vital Signs Vital signs: Temp Pulse Resp BP Pulse Ox 98.9 F 77 16 153/84 H 98 09/12/18 19:20 09/12/18 19:20 09/12/18 19:20 09/12/18 19:20 09/12/18 19:20 - Laboratory Result Diagrams: 09/12/18 14:57 09/12/18 14:57 Laboratory results interpreted by me: 09/12/18 09/12/18 09/12/18 14:57 14:57 14:57 MCV 98 H RDW 14.6 H AST 39 H Urine Blood MODERATE H Discharge - Discharge Clinical Impression: Hypertension, Headache Condition: Stable Disposition: HOME, SELF-CARE Additional Instructions: HIGH BLOOD PRESSURE REQUIRING TREATMENT: Your blood pressure is high. This is called "hypertension." Today's reading was 181/108 (normal is less than 140/90). Your history and exam suggest that this is not a temporary problem. You need treatment of your blood pressure. If left untreated, high blood pressure greatly increases your risk of heart attack and stroke. Please don't ignore this problem. If you have blood pressure medicine but aren't using it regularly, start taking it again. Some simple things you can do to help are: Get some aerobic exercise for at least 20 minutes on a daily basis. (See your doctor before beginning any new exercise program.) Eat a low-fat diet. Lose excess weight. Avoid salty foods and avoid adding salt to any of the foods you eat. Avoid diet pills, decongestants, "energizing" herbs, and other medicines that elevate blood pressure. There are many different medicines that treat blood pressure. If your medication causes unpleasant side effects, call your doctor. There are others you can try. Treating hypertension is a life-long investment in your health. CALCIUM CHANNEL BLOCKERS: A medication of the calcium channel shanthi type has been prescribed for you. Examples of this type of medicine are Calan, Isoptin, Procardia, and Cardizem. These medicines have a variety of uses, including prevention of angina attacks, treatment of blood pressure, regulation of certain heart rhythm p roblems, and prevention of migraine headaches. Calcium channel blockers work by interfering with the flow of calcium in cell membranes. This results in dilation of blood vessels, and slowing of electrical conduction in the heart. A slight dizziness (due to a fall in blood pressure) may occur with the first dose, and sometimes even with later doses. This may make you prone to dizziness if you stand up suddenly. Call the doctor if lightheadedness is severe, or if you develop palpi tations, shortness of breath, or any other new or alarming symptoms. FOLLOW-UP CARE: If you have been referred to a physician for follow-up care, call the physicians office for an appointment as you were instructed or within the next two days. If you experience worsening or a significant change in your symptoms, notify the physician immediately or return to the Emergency Department at any time for re-evaluation. You need to have your blood pressure rechecked by your primary care provider in about 10 days to 2 weeks. I am giving you enough medication to take for 2 weeks. HEADACHE: The physician does not feel that the headache you are experiencing has a serious underlying cause. Most headaches are due to emotional stress, with resultant muscle tension (tension headache). Occasionally, headaches are secondary to changes in the blood vessels of the scalp (vascular headache and migraine headache). Sometimes, a headache is the first symptom of another developing illness, such as a viral infection. You have no evidence of stroke, bleeding, meningitis, or other serious cause of your headache. The treatment of headaches varies with the severity and cause of the pain. Not all headaches need pain shots. In fact, there is evidence that using narcotics for headaches may make them worse in the long run. The physician will determine the therapy that's in your best interest. If you develop a fever, if the headache is different from any you've previously experienced, or if the headache progressively worsens, then call your physician at once or go to the emergency room. REGLAN (METOCLOPRAMIDE): Reglan has been prescribed. This medicine affects the stomach and intestines. It can be used to treat nausea and vomiting, to prevent reflux of stomach acid up into the esophagus, or to increase the contractions of the stomach and intestines. It is often prescribed for esophagitis, and for paralysis of the stomach in diabetics. Reglan can cause either mild restlessness or drowsiness. You should contact the doctor at once if you become extremely restless, anxious, or cannot sleep, or if you develop uncontrollable motions of the lips, tongue, or jaw. Do not take alcohol with this medicine. Do not drive or operate machinery until you have been taking this medicine long enough to know how it affects you. Call the doctor if you develop abdominal pains, lightheadedness, black stool, or blood in the stool or vomitus. USE OF DIPHENHYDRAMINE: Diphenhydramine (Benadryl) is an antihistamine and has been recommended to help treat your headache and to prevent side effects of other medications used to treat headaches. The medication can be repeated four times daily. Age Elixir (12.5 mg/tsp) 25 mg pill adult 1-2 tabs Antihistamines may cause drowsiness, especially with the first dose. Do not operate machinery or drive while under the effects of the medication. Do not combine the medication with alcohol, or with any other medication without talking to your doctor. USE OF ACETAMINOPHEN (Tylenol): Acetaminophen may be taken for pain relief or fever control. It's much safer than aspirin, offering a wider range of "safe" dosages. It is safe during . Some brand names are Tylenol, Panadol, Datril, Anacin 3, Tempra, and Liquiprin. Acetaminophen can be repeated every four hours. The following are maximum recommended dosages: WEIGHT Dose Drops Elixir Chewable(80mg) (LBS.) drprs=droppers tsp=teaspoon >89 pounds or adults 650 mg to 900 mg Acetaminophen can be repeated every four hours. Maximum dose not to exceed 4000 mg a day. These maximum recommended dosages are slightly higher than the dosages written on the product container, but these dosages are very safe and below the toxic dosage for acetaminophen. FOLLOW-UP CARE: If you have been referred to a physician for follow-up care, call the physicians office for an appointment as you were instructed or within the next two days. If you experience worsening or a significant change in your symptoms, notify the physician immediately or return to the Emergency Department at any time for re-evaluation. Prescriptions: Metoclopramide HCl [Reglan] 20 mg PO Q6HP PRN #20 tablet PRN Reason: Amlodipine Besylate [Norvasc 5 mg Tablet] 5 mg PO DAILY #15 tablet Referrals: SHILOH MOSHER PA-C [Primary Care Provider] - Follow up as needed
[2018-09-12] MEDS ORDERED: AMLODIPINE BESYLATE 5 MG TABLET PO ONE (18:12)
[2018-09-12 19:21] VITALS: BP 153/84
--- NOTE | 2018-09-12 23:06 | EKG REPORT ---
SEVERITY:- NORMAL ECG - SINUS RHYTHM : Confirmed by: Parker Molina 12-Sep-2018 23:05:13
== END 2018-09-12 19:20 | disposition home or self-care (01) ==
LOC: ER 12:16
DX: I10 Essential (primary) hypertension (principal); R51 Headache; R11.2 Nausea with vomiting, unspecified; R42 Dizziness and giddiness; J45.909 Unspecified asthma, uncomplicated
CPT/HCPCS: 93005; 99284; 96374; 96375; 36415; 85025; 80053; 81001; 84484; 70450; 93010; J1200; J2765; J2405

== ENCOUNTER 2018-10-30 13:16 | Emergency (ER) | payer OTHER ==
[2018-10-30 13:36] VITALS: BP 168/85
[2018-10-30] MEDS ORDERED: NEOMY SULF/POLYMYX B SULF/HC OTIC SUSP 10 ML AS ONE (14:27)
--- NOTE | 2018-10-30 14:33 | ER Document Report ---
HPI - HPI Patient complains to provider of: left ear pain Time Seen by Provider: 10/30/18 13:50 Onset: Yesterday Onset/Duration: Sudden Severity: Mild Pain Level: 1 Context: This 58-year-old female presents emergency department with left ear pain since yesterday. Patient reports that she has had ear pain in both ears coming going for the past 6 months. She is never been evaluated by a provider for this ear pain until today. Patient denies fever vomiting reports she is had some diarrhea recently. Denies recent swimming. Denies trauma. Denies past medical history of injury to the ear. Patient reports that her ear was hurting so she itched it with a Q-tip. Associated Symptoms: None Exacerbated by: Denies Relieved by: Denies Similar symptoms previously: No Recently seen / treated by doctor: No - REPRODUCTIVE Reproductive: DENIES: : Past Medical History - General Information source: Patient - Social History Smoking Status: Unknown if Ever Smoked Cigarette use (# per day): No Frequency of alcohol use: None Drug Abuse: None Family History: None, Reviewed & Not Pertinent Patient has suicidal ideation: No Patient has homicidal ideation: No - Past Medical History Cardiac Medical History: Reports: Hx Hypertension Denies: Hx Coronary Artery Disease, Hx Heart Attack Pulmonary Medical History: Reports: Hx Asthma, Hx Pneumonia, Hx Sleep Apnea Denies: Hx Bronchitis, Hx COPD Neurological Medical History: Reports: Hx Migraine. Denies: Hx Cerebrovascular Accident, Hx Seizures Renal/ Medical History: Denies: Hx Peritoneal Dialysis Musculoskeletal Medical History: Reports Hx Arthritis Past Surgical History: Reports: Hx Breast Surgery, Hx Section, Hx Gynecologic Surgery, Hx Orthopedic Surgery - Cervical fusion, Bilat feet, Other - colonoscopy 2013 - Immunizations Hx Diphtheria, Pertussis, Tetanus Vaccination: Yes Hx Pneumococcal Vaccination: 12/19/14 Vertical Provider Document - CONSTITUTIONAL Agree With Documented VS: Yes Exam Limitations: No Limitations General Appearance: WD/WN, No Apparent Distress - INFECTION CONTROL TRAVEL OUTSIDE OF THE [place] IN LAST 30 DAYS: No - HEENT HEENT: Atraumatic, Normocephalic. negative: Conjuctival Injection, Pharyngeal Erythema, Tympanic Membrane Red - Left EAC with erythema no swelling no discharge no mastoid tenderness - NECK Neck: Normal Inspection, Supple. negative: Lymphadenopathy-Left, Lymphadenopathy-Right - RESPIRATORY Respiratory: Breath Sounds Normal, No Respiratory Distress - CARDIOVASCULAR Cardiovascular: Regular Rate - MUSCULOSKELETAL/EXTREMETIES Musculoskeletal/Extremeties: [place] APARICIO - NEURO Level of Consciousness: Awake, Alert, Appropriate Motor/Sensory: No Motor Deficit - DERM Integumentary: Warm, Dry Course - Re-evaluation Re-evalutation: 10/30/18 14:31 This 58-year-old female presents to the emergency department with complaints of left ear pain since yesterday. She reports she did itch it with a Q-tip yesterday. She reports she was hurting all night. Reports she has had ear pain both ears coming and going for the last 6 months. She has not been evaluated by her primary care provider. She denies swimming. Denies trauma. No fever vomiting reports she has had some diarrhea. Patient has left otitis externa. She was instructed to not put anything in her ears. She was instructed on antibiotics signs and symptoms of allergic reaction. She was also instructed to follow-up with her primary care provider Ms. Shiloh shukla within the next week for recheck. She verbalized understanding to all instructions. Dictation of this chart was performed using voice recognition software; therefore, there may be some unintended grammatical errors. - Vital Signs Vital signs: Temp Pulse Resp BP Pulse Ox 98.7 F 87 18 168/85 H 96 10/30/18 13:35 10/30/18 13:35 10/30/18 13:35 10/30/18 13:35 10/30/18 13:35 Discharge - Discharge Clinical Impression: Left otitis externa Condition: Stable Disposition: HOME, SELF-CARE Instructions: Use of Ear Drops ([facility]), Otitis Externa ([facility]) Additional Instructions: *You have been evaluated for left ear pain, otitis externa *Use ear drops as prescribed --- Instill 4 drops to the left ear 4 times daily for 5 days *Follow up with a primary care provider for recheck within one week Take Tylenol or Motrin as indicated for pain *Return to ED for worsening condition, changes, needs Monitor your blood pressure. Your blood pressure was elevated today. This may be because you were anxious, in pain or because you need medication. It is important to follow up with your primary care provider for full evaluation. Forms: Elevated Blood Pressure Referrals: SHILOH SHUKLA PA-C [Primary Care Provider] - Follow up as needed
== END 2018-10-30 14:49 | disposition home or self-care (01) ==
LOC: ER 13:16
DX: H60.92 Unspecified otitis externa, left ear (principal); H92.02 Otalgia, left ear; I10 Essential (primary) hypertension; Z98.1 Arthrodesis status
CPT/HCPCS: 99282; J3490

== ENCOUNTER 2019-03-27 09:16 | Emergency (ER) | payer BC, OTHER ==
[2019-03-27 09:39] VITALS: BP 156/79
[2019-03-27] MEDS ORDERED: PREDNISONE 20 MG TABLET PO ONE (09:59)
--- NOTE | 2019-03-27 10:04 | ER Document Report ---
HPI - HPI Time Seen by Provider: 03/27/19 09:46 Pain Level: 5 Notes: Patient is a 59-year-old female with a history of gout, asthma, hypertension who presents complaining of left foot/ankle pain, swelling, and warmth that she woke up with this morning. Patient states that she went to bed fine. Patient states that she is very sensitive to light touch to the area and with movement. The pain does not radiate. Denies any injury. Patient states that the pain does m imic gout in the past. Denies any headache, fever, neck pain, URI, sore throat, chest pain, palpitations, syncope, cough, shortness of breath, wheeze, dyspnea, abdominal pain, nausea/vomiting/diarrhea, urinary retention, dysuria, hematuria, loss of control of bowel or bladder, numbness/tingling, saddle anesthesia, muscle paralysis/weakness, or rash. - ROS Systems Reviewed and Negative: Yes All other systems reviewed and negative - CONSTITUTIONAL Constitutional: DENIES: Fever, Chills - REPRODUCTIVE Reproductive: DENIES: : - MUSCULOSKELETAL Musculoskeletal: REPORTS: Extremity pain - DERM Skin Color: Normal Past Medical History - Social History Smoking Status: Current Every Day Smoker Frequency of alcohol use: Heavy Drug Abuse: Marijuana Family History: None, Reviewed & Not Pertinent Patient has suicidal ideation: No Patient has homicidal ideation: No - Past Medical History Cardiac Medical History: Reports: Hx Hypertension Denies: Hx Coronary Artery Disease, Hx Heart Attack Pulmonary Medical History: Reports: Hx Asthma, Hx Pneumonia, Hx Sleep Apnea Denies: Hx Bronchitis, Hx COPD Neurological Medical History: Reports: Hx Migraine. Denies: Hx Cerebrovascular Accident, Hx Seizures Renal/ Medical History: Denies: Hx Peritoneal Dialysis Musculoskeletal Medical History: Reports Hx Arthritis Past Surgical History: Reports: Hx Breast Surgery, Hx Section, Hx Gynecologic Surgery, Hx Orthopedic Surgery - Cervical fusion, Bilat feet, Other - colonoscopy 2013 - Immunizations Hx Diphtheria, Pertussis, Tetanus Vaccination: Yes Hx Pneumococcal Vaccination: 12/19/14 Vertical Provider Document - CONSTITUTIONAL Agree With Documented VS: Yes Notes: PHYSICAL EXAMINATION: GENERAL: Well-appearing, well-nourished and in no acute distress. LUNGS: Breath sounds clear to auscultation bilaterally and equal. No wheezes rales or rhonchi. HEART: Regular rate and rhythm without murmurs, rubs, gallops. Musculoskeletal: Lt foot/ankle: + mild swelling, warmth, and minimal erythema to the ankle and dorsal foot area. Sensitive to light touch and tender to palpate. No ecchymosis or deformity. LROM to passive/active dorsiflexion. Strength 5+/5. N/V intact distal. No bony tenderness of the foot. Achilles intact. Lis Franc maneuver neg. Anterior drawer neg. Extremities: No cyanosis, clubbing, or edema b/l. Peripheral pulses 2+. Capillary refill less than 3 seconds. NEUROLOGICAL: Normal speech, limping gait. Normal sensory, motor exams PSYCH: Normal mood, normal affect. SKIN: Warm, Dry, normal turgor, no rashes or lesions noted. - INFECTION CONTROL TRAVEL OUTSIDE OF THE [place] IN LAST 30 DAYS: No Course - Vital Signs Vital signs: Temp Pulse Resp BP Pulse Ox 98.1 F 89 16 156/79 H 95 03/27/19 09:38 03/27/19 09:38 03/27/19 09:38 03/27/19 09:38 03/27/19 09:38 Discharge - Discharge Clinical Impression: Left ankle pain Qualifiers: Chronicity: acute Qualified Code(s): M25.572 - Pain in left ankle and joints of left foot Gout Qualifiers: Gout site: ankle Gout etiology: unspecified cause Chronicity: acute Laterality: left Qualified Code(s): M10.9 - Gout, unspecified Condition: Stable Disposition: HOME, SELF-CARE Additional Instructions: Rest, Ice, Compression, Elevation Tylenol as needed Light stretches daily Strength exercises as able Moist heat and massage may help F/u with your PCP in 3-5 days for a recheck Consider consult(s) with Orthopedics/physical therapy for ongoing/worsening symptoms Return to the ED with any worsening symptoms and/or development of fever, headache, chest pain, palpitations, syncope, shortness of breath, trouble breathing, abdominal pain, n/v/d, muscle weakness/paralysis, numbness/tingling, swelling, redness, or other worsening symptoms that are concerning to you. Prescriptions: Prednisone [Deltasone 10 mg Tablet] 10 mg PO ASDIR PRN #21 tablet PRN Reason: Forms: Elevated Blood Pressure, Smoking Cessation Education Referrals: SHILOH MOSHER PA-C [Primary Care Provider] - Follow up as needed [facility] [Provider Group] - Follow up as needed
== END 2019-03-27 10:09 | disposition home or self-care (01) ==
LOC: ER 09:16
DX: M25.572 Pain in left ankle and joints of left foot (principal); M10.9 Gout, unspecified; F17.200 Nicotine dependence, unspecified, uncomplicated; I10 Essential (primary) hypertension; Z98.1 Arthrodesis status
CPT/HCPCS: 99283; J7512

== ENCOUNTER 2019-08-27 04:05 | Inpatient (IN) | payer BC ==
--- NOTE | 2019-08-27 04:24 | ER Document Report ---
ED General - General Information source: Patient TRAVEL OUTSIDE OF THE [place] IN LAST 30 DAYS: No - HPI Onset: Other - 4 days ago Onset/Duration: Gradual, Worse Quality of pain: Throbbing Severity: Moderate Pain Level: 3 Associated symptoms: Nausea, Vomiting Exacerbated by: Movement, Coughing, Deep breathing Relieved by: Denies Similar symptoms previously: No Recently seen / treated by doctor: No <ОЛЬГА SINGH - Last Filed: 08/27/19 06:26> <FABIO CORTES - Last Filed: 08/27/19 07:33> - General Chief Complaint: Abdominal Pain Stated Complaint: ABDOMINAL PAIN Primary Care Provider: SHILOH MOSHER PA-C [Primary Care Provider] - Follow up as needed Notes: Patient is a 59-year-old female presenting to the emergency department chief complaint of abdominal pain nausea vomiting and constipation. Patient states is been ongoing for several days. Patient reports intermittent marijuana and alcohol use and daily tobacco abuse. Patient states that she has drank about 4 mixed drinks this past Saturday. Patient denies travel history trauma history sick contacts no change in activities of daily living. Patient states the last time she ate was Saturday. (ОЛЬГА SINGH) - Related Data Allergies/Adverse Reactions: celecoxib [From Celebrex] Allergy (Severe, Verified 08/27/19 04:11) Bronchospasm lisinopril Allergy (Severe, Verified 08/27/19 04:11) Bronchospasm hydrochlorothiazide Allergy (Intermediate, Verified 08/27/19 04:11) Bronchospasm Past Medical History - General Information source: Patient - Social History Smoking Status: Current Every Day Smoker Cigarette use (# per day): Yes Chew tobacco use (# tins/day): No Smoking Education Provided: Yes Frequency of alcohol use: Occasional Drug Abuse: Marijuana Family History: None, Reviewed & Not Pertinent Patient has suicidal ideation: No Patient has homicidal ideation: No - Past Medical History Cardiac Medical History: Reports: Hx Hypertension Denies: Hx Coronary Artery Disease, Hx Heart Attack Pulmonary Medical History: Reports: Hx Asthma, Hx Pneumonia, Hx Sleep Apnea Denies: Hx Bronchitis, Hx COPD Neurological Medical History: Reports: Hx Migraine. Denies: Hx Cerebrovascular Accident, Hx Seizures Renal/ Medical History: Denies: Hx Peritoneal Dialysis Musculoskeletal Medical History: Reports Hx Arthritis Past Surgical History: Reports: Hx Breast Surgery, Hx Section, Hx Gynecologic Surgery, Hx Orthopedic Surgery - Cervical fusion, Bilat feet, Other - colonoscopy 2013 - Immunizations Hx Diphtheria, Pertussis, Tetanus Vaccination: Yes Hx Pneumococcal Vaccination: 12/19/14 <ОЛЬГА SINGH - Last Filed: 08/27/19 06:26> Review of Systems - Review of Systems Constitutional: No symptoms reported EENT: No symptoms reported Cardiovascular: No symptoms reported Respiratory: No symptoms reported Gastrointestinal: See HPI Genitourinary: No symptoms reported Female Genitourinary: No symptoms reported Musculoskeletal: No symptoms reported Skin: No symptoms reported Hematologic/Lymphatic: No symptoms reported Neurological/Psychological: No symptoms reported <ОЛЬГА SINGH - Last Filed: 08/27/19 06:26> Physical Exam <ОЛЬГА SINGH - Last Filed: 08/27/19 06:26> - Vital signs Vitals: Temp 98.4 F 08/27/19 04:12 - Notes Notes: PHYSICAL EXAMINATION: GENERAL: Patient is a 59-year-old female presenting to the emergency department for abdominal pain and mild to moderate discomfort HEAD: Atraumatic, normocephalic. EYES: Pupils equal round and reactive to light, extraocular movements intact, sclera anicteric, conjunctiva are normal. ENT: nares patent, oropharynx clear without exudates. Moist mucous membranes. NECK: Normal range of motion, supple without lymphadenopathy, no appreciable JVD LUNGS: Lungs clear to auscultation bilaterally and equal. No wheezes rales or rhonchi. HEART: Regular rate and rhythm without murmurs ABDOMEN: Soft, moderately tender mainly to the epigastrium with decreased bowel sounds. No guarding, no rebound. No masses appreciated. EXTREMITIES: Active full range of motion, no pitting or edema. No cyanosis. 2+ pulses x4 NEUROLOGICAL: No focal neurological deficits. Moves all extremities spontaneously and on command. SKIN: Warm, Dry, and intact. Normal turgor, no rashes or lesions noted. (ОЛЬГА SINGH) Course - Laboratory Result Diagrams: 08/27/19 04:35 08/27/19 04:35 - Diagnostic Test Radiology reviewed: Reports reviewed <ОЛЬГА SINGH - Last Filed: 08/27/19 06:26> - Laboratory Result Diagrams: 08/27/19 04:35 08/27/19 04:35 <FABIO CORTES - Last Filed: 08/27/19 07:33> - Re-evaluation Re-evalutation: 08/27/19 06:24 On presentation patient is placed in hospital room IV access urinalysis and acute abdominal series has been obtained. On review of labs patient has been f ound to have markedly elevated lipase and patient based on acute abdominal series does not appear to be constipated. Patient will receive IV fluids at 150 cc an hour received 8 mg of Zofran ODT via EMS and now will receive 4 mg IV morphine 12.5 mg of Phenergan IV. CT abdomen pelvis IV only contrast will be obtained. 08/27/19 06:26 Patient be signed out to oncoming physician. (ОЛЬГА SINGH) - Vital Signs Vital signs: Temp Pulse Resp BP Pulse Ox 99.2 F 88 16 176/97 H 97 08/27/19 04:22 08/27/19 04:22 08/27/19 04:22 08/27/19 04:22 08/27/19 04:22 - Laboratory Laboratory results interpreted by me: 08/27/19 08/27/19 08/27/19 04:35 04:35 04:40 WBC 13.5 H Hgb 16.3 H Hct 47.8 H MCV 101 H MCH 34.6 H RDW 17.2 H Lymph % (Auto) 10.0 L Absolute Neuts (auto) 11.3 H Seg Neutrophils % 83.9 H Potassium 3.5 L Creatinine 0.49 L Glucose 121 H Calcium 10.4 H Lipase 3713.0 H Urine Protein 30 H Urine Ketones TRACE H Urine Blood LARGE H Discharge <ОЛЬГА SINGH - Last Filed: 08/27/19 06:26> - Discharge Admitting Provider: Eliu (Hospitalist) Unit Admitted: Medical Floor <GIANABDIELFABIO F - Last Filed: 08/27/19 07:33> - Discharge Clinical Impression: Elevated lipase Abdominal pain Qualifiers: Abdominal location: generalized Qualified Code(s): R10.84 - Generalized abdominal pain Pancreatitis Qualifiers: Chronicity: acute Acute pancreatitis complication: unspecified Condition: Fair Disposition: ADMITTED OBSERVATION Referrals: SHILOH MOSHER PA-C [Primary Care Provider] - Follow up as needed
[2019-08-27] MEDS ORDERED: ONDANSETRON HCL INJ/PF 4 MG/2 ML SDV IV ONE (04:33)
[2019-08-27] MEDS ORDERED: NORMAL SALINE 1000 ML 1,000 ML IV ONE (04:33)
[2019-08-27 04:56] LABS: ABSOLUTE BASOPHILS # (AUTO) 0.1 10^3/uL (0.0-0.2); ABSOLUTE EOSINOPHILS # (AUTO) 0.1 10^3/uL (0.0-0.6); ABSOLUTE LYMPHOCYTES (AUTO) 1.3 10^3/uL (0.5-4.7); ABSOLUTE MONOCYTES (AUTO) 0.6 10^3/uL (0.1-1.4); ABSOLUTE NEUT (AUTO) 11.3 10^3/uL (1.7-8.2); BASOPHILS % (AUTO) 0.8 % (0-2); EOSINOPHILS % (AUTO) 0.6 % (0-6); HEMATOCRIT 47.8 % (36.0-47.0); HEMOGLOBIN 16.3 g/dL (12.0-15.5); MEAN CORPUSCULAR HEMOGLOBIN 34.6 pg (27.0-33.4); MEAN CORPUSCULAR HGB CONC 34.1 g/dL (32.0-36.0); MEAN CORPUSCULAR VOLUME 101 fl (80-97); MONOCYTES % (AUTO) 4.7 % (3-13); PLATELET COUNT 239 10^3/uL (150-450); RED BLOOD COUNT 4.71 10^6/uL (3.72-5.28); RED CELL DISTRIBUTION WIDTH 17.2 % (11.5-14.0); SEGMENTED NEUTROPHILS % (AUTO) 83.9 % (42-78); TOTAL CELLS COUNTED % (AUTO) 100 %; WHITE BLOOD COUNT 13.5 10^3/uL (4.0-10.5)
[2019-08-27 05:01] LABS: APPEARANCE,URINE SLIGHTLY-CLOUDY; BILIRUBIN,URINE NEGATIVE (NEGATIVE); COLOR,URINE YELLOW; GLUCOSE, URINE NEGATIVE (NEGATIVE); KETONES,URINE TRACE mg/dL (NEGATIVE); LEUKOCYTE ESTERASE,URINE NEGATIVE (NEGATIVE); NITRITE,URINE NEGATIVE (NEGATIVE); PROTEIN,URINE 30 mg/dL (NEGATIVE); URINE SPECIFIC GRAVITY 1.023; UROBILINOGEN,URINE NEGATIVE mg/dL (<2.0)
[2019-08-27 05:14] LABS: ALBUMIN 3.6 g/dL (3.5-5.0); ALKALINE PHOSPHATASE 85 U/L (38-126); ANION GAP 8 (5-19); ASPARTATE AMINO TRANSFERASE 33 U/L (14-36); BILIRUBIN,TOTAL 0.6 mg/dL (0.2-1.3); BLOOD UREA NITROGEN 7 mg/dL (7-20); CALCIUM 10.4 mg/dL (8.4-10.2); CARBON DIOXIDE 27 mmol/L (22-30); CHLORIDE 103 mmol/L (98-107); GLUCOSE 121 mg/dL (75-110); POTASSIUM 3.5 mmol/L (3.6-5.0); TOTAL PROTEIN 7.1 g/dL (6.3-8.2)
--- NOTE | 2019-08-27 05:50 | RADIOLOGY REPORT (SQ) ---
ACUTE ABDOMINAL SERIES: 08/27/2019 4:48 AM CDT COMPARISON: Chest radiograph from 03/25/2017 TECHNIQUE: A PA view of the chest was obtained with upright and supine views of the abdomen. HISTORY: 59-year old with abdominal pain. FINDINGS: The cardiomediastinal silhouette is normal in size. No pneumothorax is seen. There are interstitial airspace opacities at the left lung base. No discrete pleural effusion is apparent. There is elevation of the right hemidiaphragm. The visualized bowel gas pattern is nonspecific and nonobstructive. No free air is seen beneath the hemidiaphragms. No abnormal intraabdominal calcifications are seen. There are no findings to suggest organomegaly. IMPRESSION: There are interstitial airspace opacities at the left lung base which may reflect developing infection. The bowel gas pattern is nonobstructive and nonspecific.
[2019-08-27] MEDS ORDERED: PROMETHAZINE HCL INJ 25 MG/1 ML VIAL IV ONE ×2 (06:22→06:26)
[2019-08-27] MEDS ORDERED: MORPHINE SULFATE 10 MG/ML INJ IV ONE (06:22)
--- NOTE | 2019-08-27 07:21 | RADIOLOGY REPORT (SQ) ---
CT ABDOMEN AND PELVIS WITH INTRAVENOUS CONTRAST: 08/27/2019 6:18 AM CDT HISTORY: 59-year old with abdominal pain, elevated lipase. COMPARISON: None available TECHNIQUE: Axial contiguous images were obtained from the lung bases to the proximal femurs with intravenous intravenous contrast administered. Sagittal and coronal reconstructions were also obtained and reviewed. This exam was performed according to our departmental dose-optimization program, which includes automated exposure control, adjustment of the mA and/or KV according to the patient's size and/or use of iterative reconstruction technique. FINDINGS: No focal consolidative airspace opacities are seen. No discrete pleural effusion is seen. The cardiac silhouette is enlarged. The visualized hepatic parenchyma is diffusely low in attenuation. No focal enhancing lesion is seen. The gallbladder demonstrates no evidence of calcified gallstones. The spleen is unremarkable. The pancreas is enlarged with adjacent inflammatory stranding. There are no findings to suggest pancreatic necrosis. No focal fluid collection is seen. The visualized splenic vasculature is unremarkable. There is mild fullness of the left adrenal gland. There is a likely duodenal diverticulum at the second and third portion of the duodenum incidentally seen. Both kidneys demonstrate no evidence of hydronephrosis. The urinary bladder is mildly distended, and appears grossly unremarkable. The uterus is present. The endometrium appears somewhat prominent. The stomach is not well distended. The small bowel loops appear unremarkable. No pericolonic inflammatory stranding is seen. There are multiple diverticula seen within the sigmoid and descending colon, without evidence to suggest diverticulitis. The appendix appears unremarkable. There is no evidence of pneumoperitoneum or free fluid. The aorta and IVC appear normal in size. No significantly enlarged lymph nodes are seen in the abdomen or pelvis. Review of the bone show no evidence of any suspicious lytic or blastic lesions. IMPRESSION: The pancreas is prominent with adjacent inflammatory stranding suggesting pancreatitis. No focal fluid collection is seen. Hepatic steatosis The endometrium appears somewhat thickened for the patient's hormonal status. Pelvic ultrasound may be warranted if the patient is experiencing dysfunctional uterine bleeding or is postmenopausal.
[2019-08-27] MEDS ORDERED: HYDROMORPHONE HCL INJ/PF 2 MG/ML AMPULE IV PRN (09:11)
[2019-08-27] MEDS ORDERED: PROMETHAZINE HCL INJ 25 MG/1 ML VIAL IV PRN (10:51)
[2019-08-27] MEDS ORDERED: MAGNESIUM HYDROXIDE SUSP 30 ML UDCUP PO PRN (10:51)
[2019-08-27] MEDS ORDERED: ACETAMINOPHEN 325 MG TABLET PO PRN (10:51)
[2019-08-27] MEDS ORDERED: DEXTROSE 40% GEL 15 GM TUBE PO PRN ×2 (10:51)
[2019-08-27] MEDS ORDERED: IPRATROPIUM/ALBUTEROL 0.5-2.5 MG/3 ML AMPUL NEB PRN (10:51)
[2019-08-27] MEDS ORDERED: TEMAZEPAM 15 MG CAPSULE PO PRN (10:51)
[2019-08-27] MEDS ORDERED: DEXTROSE 50%-WATER 25 GM/50 ML DISP.SYRIN IV PRN ×2 (10:51)
[2019-08-27] MEDS ORDERED: GLUCAGON,HUMAN RECOMB 1 MG INJ SUBCUT PRN (10:51)
[2019-08-27] MEDS ORDERED: ALBUTEROL SULFATE HFA (90 MCG/PUFF) 8 GM MDI (1 MDI/ER DISP) IH PRN (10:56)
[2019-08-27] MEDS ORDERED: METOPROLOL TARTRATE PF/INJ 5 MG/5 ML SDV IV PRN (11:01)
[2019-08-27] MEDS ORDERED: LORAZEPAM INJ 2 MG/1 ML VIAL IV PRN (11:02)
[2019-08-27] MEDS: HYDROMORPHONE HCL INJ/PF 2 MG/ML AMPULE IV PRN ×5 (11:17→23:06)
[2019-08-27] MEDS: NORMAL SALINE 1000 ML 1,000 ML IV PRN (11:20)
[2019-08-27] MEDS: ONDANSETRON HCL INJ/PF 4 MG/2 ML SDV IV PRN (11:33)
[2019-08-27] MEDS: FLUTICASONE/VILANTEROL 200-25 MCG/DOSE IH SCH (12:23)
[2019-08-27] MEDS ORDERED: NORMAL SALINE 1000 ML 1,000 ML with POTASSIUM CHLORIDE 20 MEQ, MAGNESIUM SULFATE 8 MEQ,... IV SCH ×5 (18:00)
--- NOTE | 2019-08-27 18:22 | PDOC H&P ---
History of Present Illness Admission Date/PCP: 08/27/19 10:51 SHILOH MOSHER PA-C History of Present Illness: ENZO MONIQUE is a 59 year old female past medical history of morbid obesity, asthma, tobacco abuse, EtOH abuse, presenting to ED complaining of acute onset severe epigastric abdominal pain, constant, 9/10, worse with movement and breathing, better with IV narcotics, nonradiating, associated with nausea and nonbilious nonbloody vomiting. Patient has history of alcohol abuse and was celebrating 21 August and she thinks that she had more than usual, denies any history of hyperlipidemia, gallstones, abdominal trauma, or any previous pancreatitis. Denies any fever, chills, chest pain, shortness of breath, weight changes, headache, numbness, tingling, diarrhea, constipation or any urinary symptoms. CT abdomen ED showed pancreas is prominent with adjacent inflammatory stranding suggesting pancreatitis. No focal fluid collection seen. Hepatic steatosis. Lipase 3713. Past Medical History Cardiac Medical History: Reports: Hypertension Denies: Coronary Artery Disease, Myocardial Infarction Pulmonary Medical History: Reports: Asthma, Pneumonia, Sleep Apnea Denies: Bronchitis, Chronic Obstructive Pulmonary Disease (COPD) Neurological Medical History: Reports: Migraine Denies: Seizures Musculoskeltal Medical History: Reports: Arthritis Psychiatric Medical History: Denies: Depression Hematology: Denies: Anemia Past Surgical History Past Surgical History: Reports: Section, Orthopedic Surgery - Cervical fusion, Bilat feet, Other - colonoscopy 2013 Social History Smoking Status: Current Every Day Smoker Family History Family History: None, Reviewed & Not Pertinent Parental Family History Reviewed: Yes Children Family History Reviewed: Yes Sibling(s) Family History Reviewed.: Yes Medication/Allergy Home Medications: Albuterol Sulfate [Albuterol Sulfate Hfa] 1 puff IH Q4HP PRN 08/27/19 Allergies/Adverse Reactions: celecoxib [From Celebrex] Allergy (Severe, Verified 08/27/19 04:11) Bronchospasm lisinopril Allergy (Severe, Verified 08/27/19 04:11) Bronchospasm hydrochlorothiazide Allergy (Intermediate, Verified 08/27/19 04:11) Bronchospasm Review of Systems Review of Systems: as per hpi Physical Exam Vital Signs: Temp Pulse Resp BP Pulse Ox 98.6 F 99 18 145/90 H 99 08/27/19 15:06 08/27/19 16:49 08/27/19 16:49 08/27/19 15:06 08/27/19 16:49 Intake & Output 08/26/19 08/27/19 08/28/19 06:59 06:59 06:59 Intake Total 1000 Output Total 200 Balance 1000 -200 Weight 135 kg 134.5 kg General appearance: PRESENT: mild distress, morbidly obese Head exam: PRESENT: atraumatic, normocephalic Respiratory exam: PRESENT: clear to auscultation eric. ABSENT: rales, rhonchi, wheezes Cardiovascular exam: PRESENT: RRR. ABSENT: diastolic murmur, rubs, systolic m urmur GI/Abdominal exam: PRESENT: distended, normal bowel sounds, soft, tenderness. ABSENT: guarding, mass, organolmegaly, rebound Extremities exam: PRESENT: full ROM. ABSENT: calf tenderness, clubbing, pedal edema Neurological exam: PRESENT: alert, awake, oriented to person, oriented to place, oriented to time, oriented to situation, CN II-XII grossly intact. ABSENT: motor sensory deficit Skin exam: PRESENT: dry, intact, warm. ABSENT: cyanosis, rash Results Laboratory Results: 08/27/19 04:35 08/27/19 04:35 08/27/19 08/27/19 08/27/19 04:35 04:35 04:40 WBC 13.5 H RBC 4.71 Hgb 16.3 H Hct 47.8 H MCV 101 H MCH 34.6 H MCHC 34.1 RDW 17.2 H Plt Count 239 Seg Neutrophils % 83.9 H Sodium 137.9 Potassium 3.5 L Chloride 103 Carbon Dioxide 27 Anion Gap 8 BUN 7 Creatinine 0.49 L Est GFR ( Amer) > 60 Glucose 121 H Calcium 10.4 H Total Bilirubin 0.6 AST 33 Alkaline Phosphatase 85 Total Protein 7.1 Albumin 3.6 Lipase 3713.0 H Urine Color YELLOW Urine Appearance SLIGHTLY-CLOUDY Urine pH 5.0 Ur Specific [place] 1.023 Urine Protein 30 H Urine Glucose (UA) NEGATIVE Urine Ketones TRACE H Urine Blood LARGE H Urine Nitrite NEGATIVE Ur Leukocyte Esterase NEGATIVE Urine WBC (Auto) 3 Urine RBC (Auto) 25 Impressions: Acute Abdomen Series 08/27/19 04:33 IMPRESSION: There are interstitial airspace opacities at the left lung base which may reflect developing infection. The bowel gas pattern is nonobstructive and nonspecific. Abdomen/Pelvis CT 08/27/19 06:22 IMPRESSION: The pancreas is prominent with adjacent inflammatory stranding suggesting pancreatitis. No focal fluid collection is seen. Hepatic steatosis The endometrium appears somewhat thickened for the patient's hormonal status. Pelvic ultrasound may be warranted if the patient is experiencing dysfunctional uterine bleeding or is postmenopausal. Assessment and Plan - Diagnosis (1) Acute alcoholic pancreatitis Qualifiers: Acute pancreatitis complication: no infection or necrosis Qualified Code(s): K85.20 - Alcohol induced acute pancreatitis without necrosis or infection Is this a current diagnosis for this admission?: Yes Plan: Alcoholic pancreatitis. History of alcohol abuse. Recent binge drinking. Elevated lipase. Severe abdominal pain. CT positive for pancreatic inflammation and stranding. No necrosis. No cholelithiasis or choledocholithiasis. Admit to floor, aggressive volume resuscitation guided by volume status, opioid and non-opioid analgesics, n.p.o. (2) Morbid obesity with BMI of 40.0-44.9, adult Is this a current diagnosis for this admission?: Yes Plan: Diet and lifestyle modification recommended. Will obtain TSH, hemoglobin A1c and lipid panel. (3) Asthma Qualifiers: Asthma severity: mild Is this a current diagnosis for this admission?: Yes Plan: History of mild intermittent asthma. Does not seem to be acutely exacerbated. Resume home meds. (4) Obstructive sleep apnea Is this a current diagnosis for this admission?: Yes Plan: Nocturnal CPAP. (5) ETOH abuse Is this a current diagnosis for this admission?: Yes Plan: History of heavy alcohol abuse. Binge eating on 21 August. Presenting with acute pancreatitis. Denies any history of hospitalization for alcohol withdrawal or DT. Admit to floor, folic acid, thiamine, benzos, seizure disorder and aspiration precautions. DT precautions. (6) Tobacco abuse Is this a current diagnosis for this admission?: Yes Plan: Counseled on quitting. Nicotine patch will be provided.
[2019-08-27] MEDS: HYDRALAZINE HCL INJ/PF 20 MG/1 ML SDV IV PRN (19:47)
[2019-08-27] MEDS: MORPHINE SULFATE 10 MG/ML INJ IV PRN (19:47)
[2019-08-27] MEDS: NICOTINE 14 MG/24 HR PATCH.TD24 TD SCH (19:49)
[2019-08-27] MEDS: PANTOPRAZOLE SODIUM 40 MG VIAL IV SCH (21:16)
[2019-08-28] MEDS: MORPHINE SULFATE 10 MG/ML INJ IV PRN ×2 (00:46→05:27)
[2019-08-28] MEDS: HYDROMORPHONE HCL INJ/PF 2 MG/ML AMPULE IV PRN ×7 (02:29→22:19)
[2019-08-28] MEDS: NORMAL SALINE 1000 ML 1,000 ML IV PRN ×5 (02:32→22:19)
[2019-08-28 04:47] LABS: ABSOLUTE BASOPHILS # (AUTO) 0.1 10^3/uL (0.0-0.2); ABSOLUTE EOSINOPHILS # (AUTO) 0.2 10^3/uL (0.0-0.6); ABSOLUTE LYMPHOCYTES (AUTO) 1.5 10^3/uL (0.5-4.7); ABSOLUTE MONOCYTES (AUTO) 0.6 10^3/uL (0.1-1.4); ABSOLUTE NEUT (AUTO) 7.9 10^3/uL (1.7-8.2); BASOPHILS % (AUTO) 0.5 % (0-2); EOSINOPHILS % (AUTO) 1.9 % (0-6); HEMATOCRIT 38.3 % (36.0-47.0); LYMPHOCYTES % (AUTO) 14.8 % (13-45); MEAN CORPUSCULAR HEMOGLOBIN 34.7 pg (27.0-33.4); MEAN CORPUSCULAR VOLUME 102 fl (80-97); MONOCYTES % (AUTO) 6.2 % (3-13); PLATELET COUNT 201 10^3/uL (150-450); RED BLOOD COUNT 3.75 10^6/uL (3.72-5.28); RED CELL DISTRIBUTION WIDTH 16.9 % (11.5-14.0); SEGMENTED NEUTROPHILS % (AUTO) 76.6 % (42-78); TOTAL CELLS COUNTED % (AUTO) 100 %; WHITE BLOOD COUNT 10.3 10^3/uL (4.0-10.5)
[2019-08-28 05:00] LABS: ALBUMIN 2.9 g/dL (3.5-5.0); ALKALINE PHOSPHATASE 73 U/L (38-126); ASPARTATE AMINO TRANSFERASE 27 U/L (14-36); BILIRUBIN,DIRECT 0.1 mg/dL (0.0-0.4); BLOOD UREA NITROGEN 11 mg/dL (7-20); CARBON DIOXIDE 28 mmol/L (22-30); CHOLESTEROL 134.29 mg/dL (0-200); GLUCOSE 94 mg/dL (75-110); POTASSIUM 3.7 mmol/L (3.6-5.0); TOTAL PROTEIN 6.1 g/dL (6.3-8.2); TRIGLYCERIDES 100 mg/dL (<150)
[2019-08-28 05:10] LABS: CHLORIDE 107 mmol/L (98-107)
[2019-08-28 05:11] LABS: ANION GAP 3 (5-19); DIRECT LDL 67 mg/dL (<100)
[2019-08-28] MEDS: NICOTINE 14 MG/24 HR PATCH.TD24 TD SCH (09:37)
[2019-08-28] MEDS: THIAMINE HCL 100 MG TABLET PO SCH (09:37)
[2019-08-28] MEDS: FOLIC ACID 1 MG TABLET PO SCH (09:37)
[2019-08-28] MEDS: PANTOPRAZOLE SODIUM 40 MG VIAL IV SCH ×2 (09:38→21:18)
[2019-08-28] MEDS: ENOXAPARIN SODIUM INJ 40 MG/0.4 ML DISP.SYRIN SUBCUT SCH (09:39)
[2019-08-28] MEDS: FLUTICASONE/VILANTEROL 200-25 MCG/DOSE IH SCH (09:41)
--- NOTE | 2019-08-28 14:36 | PDOC PROGRESS REPORT ---
Subjective Progress Note for:: 08/28/19 Subjective:: ENZO MONIQUE is a 59 year old female past medical history of morbid obesity, asthma, tobacco abuse, EtOH abuse, presenting to ED complaining of acute onset severe epigastric abdominal pain, constant, 9/10, worse with movement and breathing, better with IV narcotics, nonradiating, associated with nausea and nonbilious nonbloody vomiting. Patient has history of alcohol abuse and was celebrating 21 August and she thinks that she had more than usual, denies any history of hyperlipidemia, gallstones, abdominal trauma, or any previous pancreatitis. Denies any fever, chills, chest pain, shortness of breath, weight changes, headache, numbness, tingling, diarrhea, constipation or any urinary symptoms. CT abdomen ED showed pancreas is prominent with adjacent inflammatory stranding suggesting pancreatitis. No focal fluid collection seen. Hepatic steatosis. Lipase 3713. 08/28/2019. Patient still complaining of significant abdominal pain or nausea, has not vomited, pain is epigastric, 9/10, constant, worse with movement and breathing, has not had a bowel, passes flatus, denies any fever, chills, urinary symptoms. Reason For Visit: ACUTE PANCREATITIS, ETOH ABUSE. Physical Exam Vital Signs: Temp Pulse Resp BP Pulse Ox 98.1 F 94 18 132/77 H 97 08/28/19 11:27 08/28/19 13:26 08/28/19 11:27 08/28/19 11:27 08/28/19 11:27 Intake & Output 08/27/19 08/28/19 08/29/19 06:59 06:59 06:59 Intake Total 1000 1999 196 Output Total 540 Balance 1000 1460 196 Weight 135 kg 137.9 kg General appearance: PRESENT: no acute distress, morbidly obese, well-developed, well-nourished Head exam: PRESENT: atraumatic, normocephalic Respiratory exam: PRESENT: clear to auscultation eric. ABSENT: rales, rhonchi, wheezes Cardiovascular exam: PRESENT: RRR. ABSENT: diastolic murmur, rubs, systolic murmur GI/Abdominal exam: PRESENT: normal bowel sounds, soft, tenderness. ABSENT: distended, guarding, mass, organolmegaly, rebound Extremities exam: PRESENT: full ROM. ABSENT: calf tenderness, clubbing, pedal edema Neurological exam: PRESENT: alert, awake, oriented to person, oriented to place, oriented to time, oriented to situation, CN II-XII grossly intact. ABSENT: motor sensory deficit Skin exam: PRESENT: dry, intact, warm. ABSENT: cyanosis, rash Results Laboratory Results: 08/28/19 03:59 08/28/19 03:59 08/28/19 08/28/19 03:59 03:59 WBC 10.3 RBC 3.75 Hgb 13.0 D Hct 38.3 MCV 102 H MCH 34.7 H MCHC 34.0 RDW 16.9 H Plt Count 201 Seg Neutrophils % 76.6 Sodium 137.9 Potassium 3.7 Chloride 107 Carbon Dioxide 28 Anion Gap 3 L BUN 11 Creatinine 0.60 Est GFR ( Amer) > 60 Glucose 94 Calcium 9.0 Total Bilirubin 1.0 AST 27 Alkaline Phosphatase 73 Total Protein 6.1 L Albumin 2.9 L Triglycerides 100 Cholesterol 134.29 LDL Cholesterol Direct 67 VLDL Cholesterol 20.0 HDL Cholesterol 66 Lipase 1314.4 H Impressions: Acute Abdomen Series 08/27/19 04:33 IMPRESSION: There are interstitial airspace opacities at the left lung base which may reflect developing infection. The bowel gas pattern is nonobstructive and nonspecific. Abdomen/Pelvis CT 08/27/19 06:22 IMPRESSION: The pancreas is prominent with adjacent inflammatory stranding suggesting pancreatitis. No focal fluid collection is seen. Hepatic steatosis The endometrium appears somewhat thickened for the patient's hormonal status. Pelvic ultrasound may be warranted if the patient is experiencing dysfunctional uterine bleeding or is postmenopausal. Assessment and Plan - Diagnosis (1) Acute alcoholic pancreatitis Qualifiers: Acute pancreatitis complication: no infection or necrosis Qualified Code(s): K85.20 - Alcohol induced acute pancreatitis without necrosis or infection Is this a current diagnosis for this admission?: Yes Plan: Alcoholic pancreatitis. History of alcohol abuse. Recent binge drinking. Elevated lipase. Severe abdominal pain. CT positive for pancreatic inflammation and stranding. No necrosis. No cholelithiasis or choledocholithiasis. Continue aggressive volume resuscitation guided by volume status, opioid and non-opioid analgesics, n.p.o. (2) Morbid obesity with BMI of 40.0-44.9, adult Is this a current diagnosis for this admission?: Yes Plan: Diet and lifestyle modification recommended. TSH, lipid panel and hemoglobin A1c WNL. (3) Asthma Qualifiers: Asthma severity: mild Is this a current diagnosis for this admission?: Yes Plan: History of mild intermittent asthma. Does not seem to be acutely exacerbated. Resume home meds. (4) Obstructive sleep apnea Is this a current diagnosis for this admission?: Yes Plan: Nocturnal CPAP. (5) ETOH abuse Is this a current diagnosis for this admission?: Yes Plan: Denies any auditory, visual hallucinations. Denies any anxiety. History of heavy alcohol abuse. Binge eating on 21 August. Presenting with acute pancreatitis. Denies any history of hospitalization for alcohol withdrawal or DT. Continue folic acid, thiamine, benzos, seizure disorder and aspiration precautions. DT precautions. (6) Tobacco abuse Is this a current diagnosis for this admission?: Yes Plan: Counseled on quitting. Nicotine patch will be provided.
[2019-08-28 18:48] LABS: APPEARANCE,URINE CLOUDY; BILIRUBIN,URINE NEGATIVE (NEGATIVE); GLUCOSE, URINE NEGATIVE (NEGATIVE); KETONES,URINE 20 mg/dL (NEGATIVE); PROTEIN,URINE 100 mg/dL (NEGATIVE); URINE SPECIFIC GRAVITY 1.024; UROBILINOGEN,URINE NEGATIVE mg/dL (<2.0)
[2019-08-28 18:50] LABS: COLOR,URINE YELLOW
[2019-08-29] MEDS: HYDRALAZINE HCL INJ/PF 20 MG/1 ML SDV IV PRN (00:08)
[2019-08-29] MEDS: HYDROMORPHONE HCL INJ/PF 2 MG/ML AMPULE IV PRN ×8 (00:35→22:04)
[2019-08-29] MEDS: NORMAL SALINE 1000 ML 1,000 ML IV PRN ×4 (03:02→22:05)
[2019-08-29 07:09] LABS: ALBUMIN 3.3 g/dL (3.5-5.0); ALKALINE PHOSPHATASE 83 U/L (38-126); ANION GAP 6 (5-19); ASPARTATE AMINO TRANSFERASE 27 U/L (14-36); BILIRUBIN,DIRECT 0.1 mg/dL (0.0-0.4); BILIRUBIN,TOTAL 0.7 mg/dL (0.2-1.3); BLOOD UREA NITROGEN 10 mg/dL (7-20); CALCIUM 8.6 mg/dL (8.4-10.2); CARBON DIOXIDE 23 mmol/L (22-30); CHLORIDE 110 mmol/L (98-107); GLUCOSE 75 mg/dL (75-110); POTASSIUM 3.7 mmol/L (3.6-5.0); TOTAL PROTEIN 6.8 g/dL (6.3-8.2)
[2019-08-29] MEDS: NICOTINE 14 MG/24 HR PATCH.TD24 TD SCH (09:03)
[2019-08-29] MEDS: FOLIC ACID 1 MG TABLET PO SCH (09:04)
[2019-08-29] MEDS: THIAMINE HCL 100 MG TABLET PO SCH (09:04)
[2019-08-29] MEDS: PANTOPRAZOLE SODIUM 40 MG VIAL IV SCH ×2 (09:04→22:03)
[2019-08-29] MEDS: ENOXAPARIN SODIUM INJ 40 MG/0.4 ML DISP.SYRIN SUBCUT SCH (09:04)
[2019-08-29] MEDS: FLUTICASONE/VILANTEROL 200-25 MCG/DOSE IH SCH (09:06)
--- NOTE | 2019-08-29 15:24 | PDOC PROGRESS REPORT ---
Subjective Progress Note for:: 08/29/19 Subjective:: ENZO MONIQUE is a 59 year old female past medical history of morbid obesity, asthma, tobacco abuse, EtOH abuse, presenting to ED complaining of acute onset severe epigastric abdominal pain, constant, 9/10, worse with movement and breathing, better with IV narcotics, nonradiating, associated with nausea and nonbilious nonbloody vomiting. Patient has history of alcohol abuse and was celebrating 21 August and she thinks that she had more than usual, denies any history of hyperlipidemia, gallstones, abdominal trauma, or any previous pancreatitis. Denies any fever, chills, chest pain, shortness of breath, weight changes, headache, numbness, tingling, diarrhea, constipation or any urinary symptoms. CT abdomen ED showed pancreas is prominent with adjacent inflammatory stranding suggesting pancreatitis. No focal fluid collection seen. Hepatic steatosis. Lipase 3713. 08/28/2019. Patient still complaining of significant abdominal pain or nausea, has not vomited, pain is epigastric, 9/10, constant, worse with movement and breathing, has not had a bowel, passes flatus, denies any fever, chills, urinary symptoms. 08/29/2019. Resting in recliner no apparent distress, still complaining of persistent abdominal pain, has not had any nausea, vomiting, wants to start on clear liquids, passing flatus has not had a bowel movement, denies any fever, chills, shortness of breath, nausea, vomiting, diarrhea, constipation. Reason For Visit: ACUTE PANCREATITIS, ETOH ABUSE. Physical Exam Vital Signs: Temp Pulse Resp BP Pulse Ox 97.6 F 82 19 144/82 H 96 08/29/19 11:18 08/29/19 14:40 08/29/19 14:40 08/29/19 11:18 08/29/19 14:40 Intake & Output 08/28/19 08/29/19 08/30/19 06:59 06:59 06:59 Intake Total 1999 4961 1999 Output Total 540 500 215 Balance 1460 4461 1785 Weight 137.9 kg 138.8 kg General appearance: PRESENT: no acute distress, morbidly obese, well-developed, well-nourished Head exam: PRESENT: atraumatic, normocephalic Respiratory exam: PRESENT: clear to auscultation eric. ABSENT: rales, rhonchi, wheezes Cardiovascular exam: PRESENT: RRR. ABSENT: diastolic murmur, rubs, systolic murmur GI/Abdominal exam: PRESENT: normal bowel sounds, soft, tenderness. ABSENT: distended, guarding, mass, organolmegaly, rebound Neurological exam: PRESENT: alert, awake, oriented to person, oriented to place, oriented to time, oriented to situation, CN II-XII grossly intact. ABSENT: motor sensory deficit Results Laboratory Results: 08/28/19 03:59 08/29/19 06:18 08/28/19 08/29/19 18:12 06:18 Sodium 138.9 Potassium 3.7 Chloride 110 H Carbon Dioxide 23 Anion Gap 6 BUN 10 Creatinine 0.47 L Est GFR ( Amer) > 60 Glucose 75 Calcium 8.6 Total Bilirubin 0.7 AST 27 Alkaline Phosphatase 83 Total Protein 6.8 Albumin 3.3 L Lipase 814.5 H Urine Color YELLOW Urine Appearance CLOUDY Urine pH 5.0 Ur Specific [place] 1.024 Urine Protein 100 H Urine Glucose (UA) NEGATIVE Urine Ketones 20 H Urine Blood MODERATE H Urine RBC (Auto) 45 Impressions: Acute Abdomen Series 08/27/19 04:33 IMPRESSION: There are interstitial airspace opacities at the left lung base which may reflect developing infection. The bowel gas pattern is nonobstructive and nonspecific. Abdomen/Pelvis CT 08/27/19 06:22 IMPRESSION: The pancreas is prominent with adjacent inflammatory stranding suggesting pancreatitis. No focal fluid collection is seen. Hepatic steatosis The endometrium appears somewhat thickened for the patient's hormonal status. Pelvic ultrasound may be warranted if the patient is experiencing dysfunctional uterine bleeding or is postmenopausal. Assessment and Plan - Diagnosis (1) Acute alcoholic pancreatitis Qualifiers: Acute pancreatitis complication: no infection or necrosis Qualified Code(s): K85.20 - Alcohol induced acute pancreatitis without necrosis or infection Is this a current diagnosis for this admission?: Yes Plan: Alcoholic pancreatitis. History of alcohol abuse. Recent binge drinking. Elevated lipase. Severe abdominal pain. CT positive for pancreatic inflammation and stranding. No necrosis. No cholelithiasis or choledocholithiasis. Continue aggressive volume resuscitation guided by volume status, opioid and non-opioid analgesics, n.p.o. (2) Morbid obesity with BMI of 40.0-44.9, adult Is this a current diagnosis for this admission?: Yes Plan: Diet and lifestyle modification recommended. TSH, lipid panel and hemoglobin A1c WNL. (3) Asthma Qualifiers: Asthma severity: mild Is this a current diagnosis for this admission?: Yes Plan: History of mild intermittent asthma. Does not seem to be acutely exacerbated. Resume home meds. (4) Obstructive sleep apnea Is this a current diagnosis for this admission?: Yes Plan: Nocturnal CPAP. (5) ETOH abuse Is this a current diagnosis for this admission?: Yes Plan: Denies any auditory, visual hallucinations. Denies any anxiety. History of heavy alcohol abuse. Binge eating on 21 August. Presenting with acute pancreatitis. Denies any history of hospitalization for alcohol withdrawal or DT. Continue folic acid, thiamine, benzos, seizure disorder and aspiration precautions. DT precautions. (6) Tobacco abuse Is this a current diagnosis for this admission?: Yes Plan: Counseled on quitting. Nicotine patch will be provided.
[2019-08-29] MEDS: ONDANSETRON HCL INJ/PF 4 MG/2 ML SDV IV PRN (22:05)
[2019-08-30] MEDS: HYDROMORPHONE HCL INJ/PF 2 MG/ML AMPULE IV PRN ×2 (01:36→05:40)
[2019-08-30 05:55] LABS: ALBUMIN 2.7 g/dL (3.5-5.0); ALKALINE PHOSPHATASE 76 U/L (38-126); ASPARTATE AMINO TRANSFERASE 30 U/L (14-36); BILIRUBIN,TOTAL 0.5 mg/dL (0.2-1.3); BLOOD UREA NITROGEN 5 mg/dL (7-20); CALCIUM 7.6 mg/dL (8.4-10.2); CARBON DIOXIDE 23 mmol/L (22-30); CHLORIDE 112 mmol/L (98-107); GLUCOSE 91 mg/dL (75-110); POTASSIUM 3.5 mmol/L (3.6-5.0); TOTAL PROTEIN 5.8 g/dL (6.3-8.2)
[2019-08-30 06:00] LABS: ANION GAP 2 (5-19)
[2019-08-30] MEDS: NORMAL SALINE 1000 ML 1,000 ML IV PRN (07:09)
[2019-08-30] MEDS ORDERED: POTASSIUM CHLORIDE 10 MEQ TABLET.ER PO ONE (07:54)
[2019-08-30] MEDS: FLUTICASONE/VILANTEROL 200-25 MCG/DOSE IH SCH (09:07)
[2019-08-30] MEDS: THIAMINE HCL 100 MG TABLET PO SCH (09:08)
[2019-08-30] MEDS: PANTOPRAZOLE SODIUM 40 MG VIAL IV SCH (09:08)
[2019-08-30] MEDS: NICOTINE 14 MG/24 HR PATCH.TD24 TD SCH (09:08)
[2019-08-30] MEDS: FOLIC ACID 1 MG TABLET PO SCH (09:09)
[2019-08-30 10:07] VITALS: BP 127/88
[2019-08-30] MEDS: ONDANSETRON HCL INJ/PF 4 MG/2 ML SDV IV PRN (10:12)
--- NOTE | 2019-08-30 12:00 | PDOC DISCHARGE SUMMARY ---
Impression - Admit/DC Date/PCP Admission Date/Primary Care Provider: 08/27/19 10:51 SHILOH MOSHER PA-C Discharge Date: 08/30/19 - Discharge Diagnosis (1) Acute alcoholic pancreatitis Is this a current diagnosis for this admission?: Yes (2) Morbid obesity with BMI of 40.0-44.9, adult Is this a current diagnosis for this admission?: Yes (3) Asthma Is this a current diagnosis for this admission?: Yes (4) Obstructive sleep apnea Is this a current diagnosis for this admission?: Yes (5) ETOH abuse Is this a current diagnosis for this admission?: Yes (6) Tobacco abuse Is this a current diagnosis for this admission?: Yes - Additional Information Discharge Diet: As Tolerated Discharge Activity: Activity As Tolerated, Balance Activity w/Rest Referrals: SHILOH MOSHER PA-C [Primary Care Provider] - Follow up as needed Prescriptions: Promethazine HCl [Phenergan 25 mg Tablet] 25 mg PO Q6 6 Days #18 tablet Ondansetron HCl [Zofran] 8 mg PO Q6 6 Days #18 tablet Home Medications: Albuterol Sulfate [Albuterol Sulfate Hfa] 1 puff IH Q4HP PRN 08/27/19 Ondansetron HCl [Zofran] 8 mg PO Q6 6 Days #18 tablet 08/30/19 Promethazine HCl [Phenergan 25 mg Tablet] 25 mg PO Q6 6 Days #18 tablet 08/30/19 History of Present Illiness History of Present Illness: ENZO MONIQUE is a 59 year old female past medical history of morbid obesity, asthma, tobacco abuse, EtOH abuse, presenting to ED complaining of acute onset severe epigastric abdominal pain, constant, 9/10, worse with movement and breathing, better with IV narcotics, nonradiating, associated with nausea and nonbilious nonbloody vomiting. Patient has history of alcohol abuse and was celebrating 21 August and she thinks that she had more than usual, denies any history of hyperlipidemia, gallstones, abdominal trauma, or any previous pancreatitis. Denies any fever, chills, chest pain, shortness of breath, weight changes, headache, numbness, tingling, diarrhea, constipation or any urinary symptoms. CT abdomen ED showed pancreas is prominent with adjacent inflammatory stranding suggesting pancreatitis. No focal fluid collection seen. Hepatic steatosis. Lipase 3713. Hospital Course Hospital Course: (1) Acute alcoholic pancreatitis Alcoholic pancreatitis. History of alcohol abuse. Recent binge drinking. Elevated lipase. Severe abdominal pain. CT positive for pancreatic inflammation and stranding. No necrosis. No cholelithiasis or choledocholithiasis. Was started on aggressive volume resuscitation guided by volume status, opioid and non-opioid analgesics, n.p.o. Nausea and vomiting resolved. Minimal abdominal pain. Tolerating p.o. intake. Having normal bowel movement. Patient was advised on EtOH abstinence, was discharged on antiemetics. (2) Morbid obesity with BMI of 40.0-44.9, adult Diet and lifestyle modification recommended. TSH, lipid panel and hemoglobin A1c WNL. (3) Asthma History of mild intermittent asthma. Not on acute exacerbation. Was restarted on home meds. Advised to resume home meds upon discharge. (4) Obstructive sleep apnea Was placed nocturnal CPAP. Advised on weight loss. (5) ETOH abuse Did not have any withdrawal symptoms. History of heavy alcohol abuse. Binge eating on 21 August. Presented with acute pancreatitis. Denies any history of hospitalization for alcohol withdrawal or DT. Was a started on folic acid, thiamine, benzos, seizure disorder and aspiration precautions. DT precautions. (6) Tobacco abuse Counseled on quitting. Nicotine patch was provided. Physical Exam Vital Signs: Temp Pulse Resp BP Pulse Ox 98.2 F 83 19 127/88 H 97 08/30/19 10:00 08/30/19 10:00 08/30/19 10:00 08/30/19 10:00 08/30/19 10:00 Intake & Output 08/29/19 08/30/19 08/31/19 06:59 06:59 06:59 Intake Total 4936 4743 Output Total 565 2065 Balance 4444 9085 Weight 138.8 kg 145.8 kg General appearance: PRESENT: no acute distress, morbidly obese, well-developed, well-nourished Head exam: PRESENT: atraumatic, normocephalic Respiratory exam: PRESENT: clear to auscultation eric. ABSENT: rales, rhonchi, wheezes Cardiovascular exam: PRESENT: RRR. ABSENT: diastolic murmur, rubs, systolic murmur GI/Abdominal exam: PRESENT: normal bowel sounds, soft, tenderness. ABSENT: distended, guarding, mass, organolmegaly, rebound Extremities exam: PRESENT: full ROM. ABSENT: calf tenderness, clubbing, pedal edema Neurological exam: PRESENT: alert, awake, oriented to person, oriented to place, oriented to time, oriented to situation, CN II-XII grossly intact. ABSENT: motor sensory deficit Skin exam: PRESENT: dry, intact, warm. ABSENT: cyanosis, rash Results Laboratory Results: WBC 10.3 10^3/uL (4.0-10.5) 08/28/19 03:59 RBC 3.75 10^6/uL (3.72-5.28) 08/28/19 03:59 Hgb 13.0 g/dL (12.0-15.5) D 08/28/19 03:59 Hct 38.3 % (36.0-47.0) 08/28/19 03:59 MCV 102 fl (80-97) H 08/28/19 03:59 MCH 34.7 pg (27.0-33.4) H 08/28/19 03:59 MCHC 34.0 g/dL (32.0-36.0) 08/28/19 03:59 RDW 16.9 % (11.5-14.0) H 08/28/19 03:59 Plt Count 201 10^3/uL (150-450) 08/28/19 03:59 Lymph % (Auto) 14.8 % (13-45) 08/28/19 03:59 Esmeralda % (Auto) 6.2 % (3-13) 08/28/19 03:59 Eos % (Auto) 1.9 % (0-6) 08/28/19 03:59 Baso % (Auto) 0.5 % (0-2) 08/28/19 03:59 Absolute Neuts (auto) 7.9 10^3/uL (1.7-8.2) 08/28/19 03:59 Absolute Lymphs (auto) 1.5 10^3/uL (0.5-4.7) 08/28/19 03:59 Absolute Monos (auto) 0.6 10^3/uL (0.1-1.4) 08/28/19 03:59 Absolute Eos (auto) 0.2 10^3/uL (0.0-0.6) 08/28/19 03:59 Absolute Basos (auto) 0.1 10^3/uL (0.0-0.2) 08/28/19 03:59 Seg Neutrophils % 76.6 % (42-78) 08/28/19 03:59 Sodium 136.7 mmol/L (137-145) L 08/30/19 04:42 Potassium 3.5 mmol/L (3.6-5.0) L 08/30/19 04:42 Chloride 112 mmol/L (98-107) H 08/30/19 04:42 Carbon Dioxide 23 mmol/L (22-30) 08/30/19 04:42 Anion Gap 2 (5-19) L 08/30/19 04:42 BUN 5 mg/dL (7-20) L 08/30/19 04:42 Creatinine 0.43 mg/dL (0.52-1.25) L 08/30/19 04:42 Est GFR ( Amer) > 60 (>60) 08/30/19 04:42 Est GFR (MDRD) Non-Af > 60 (>60) 08/30/19 04:42 Glucose 91 mg/dL (75-110) 08/30/19 04:42 POC Glucose 74 mg/dL (70-110) 08/29/19 06:02 Hemoglobin A1c % 5.4 % (4.7-6.0) 08/28/19 03:59 Calcium 7.6 mg/dL (8.4-10.2) L 08/30/19 04:42 Total Bilirubin 0.5 mg/dL (0.2-1.3) 08/30/19 04:42 Direct Bilirubin 0.0 mg/dL (0.0-0.4) 08/30/19 04:42 Neonat Total Bilirubin Not Reportable 08/30/19 04:42 Neonat Direct Bilirubin Not Reportable 08/30/19 04:42 Neonat Indirect Bili Not Reportable 08/30/19 04:42 AST 30 U/L (14-36) 08/30/19 04:42 ALT 19 U/L (<35) 08/30/19 04:42 Alkaline Phosphatase 76 U/L (38-126) 08/30/19 04:42 Total Protein 5.8 g/dL (6.3-8.2) L 08/30/19 04:42 Albumin 2.7 g/dL (3.5-5.0) L 08/30/19 04:42 Triglycerides 100 mg/dL (<150) 08/28/19 03:59 Cholesterol 134.29 mg/dL (0-200) 08/28/19 03:59 LDL Cholesterol Direct 67 mg/dL (<100) 08/28/19 03:59 VLDL Cholesterol 20.0 mg/dL (10-31) 08/28/19 03:59 HDL Cholesterol 66 mg/dL (>40) 08/28/19 03:59 Lipase 812.9 U/L (23-300) H 08/30/19 04:42 Urine Color YELLOW 08/28/19 18:12 Urine Appearance CLOUDY 08/28/19 18:12 Urine pH 5.0 (5.0-9.0) 08/28/19 18:12 Ur Specific [place] 1.024 08/28/19 18:12 Urine Protein 100 mg/dL (NEGATIVE) H 08/28/19 18:12 Urine Glucose (UA) NEGATIVE mg/dL (NEGATIVE) 08/28/19 18:12 Urine Ketones 20 mg/dL (NEGATIVE) H 08/28/19 18:12 Urine Blood MODERATE (NEGATIVE) H 08/28/19 18:12 Urine Nitrite NEGATIVE (NEGATIVE) 08/27/19 04:40 Urine Nitrite (Reflex) NEGATIVE (NEGATIVE) 08/28/19 18:12 Urine Bilirubin NEGATIVE (NEGATIVE) 08/28/19 18:12 Urine Urobilinogen NEGATIVE mg/dL (<2.0) 08/28/19 18:12 Ur Leukocyte Esterase NEGATIVE (NEGATIVE) 08/27/19 04:40 Leukocyte Esterase Rfl NEGATIVE (NEGATIVE) 08/28/19 18:12 Urine WBC (Auto) 3 /HPF 08/27/19 04:40 Urine RBC (Auto) 45 /HPF 08/28/19 18:12 U Hyaline Cast (Auto) 1 /LPF 08/27/19 04:40 Urine Bacteria (Auto) TRACE /HPF 08/27/19 04:40 Urine WBC (Reflex) 3 /HPF 08/28/19 18:12 Squamous Epi Cells Auto 2 /HPF 08/28/19 18:12 Urine Mucus (Auto) MANY /LPF 08/28/19 18:12 Urine Ascorbic Acid NEGATIVE (NEGATIVE) 08/28/19 18:12 Impressions: Acute Abdomen Series 08/27/19 04:33 IMPRESSION: There are interstitial airspace opacities at the left lung base which may reflect developing infection. The bowel gas pattern is nonobstructive and nonspecific. Abdomen/Pelvis CT 08/27/19 06:22 IMPRESSION: The pancreas is prominent with adjacent inflammatory stranding suggesting pancreatitis. No focal fluid collection is seen. Hepatic steatosis The endometrium appears somewhat thickened for the patient's hormonal status. Pelvic ultrasound may be warranted if the patient is experiencing dysfunctional uterine bleeding or is postmenopausal. Stroke Is this a Stroke Patient?: No Acute Heart Failure - Is this a Heart Failure Patient?: No
== END 2019-08-30 11:09 | disposition home or self-care (01) | DRG 439 ==
LOC: ER 04:05 → EH 07:42 → OBSVTOIN 10:51 → 5 11:48
PROVIDERS: ADMIT Internal Medicine; ATTEND Internal Medicine
DX: K85.20 Alcohol induced acute pancreatitis without necrosis or infection (principal); Z68.41 Body mass index [BMI] 40.0-44.9, adult; E66.01 Morbid (severe) obesity due to excess calories; G47.33 Obstructive sleep apnea (adult) (pediatric); J45.20 Mild intermittent asthma, uncomplicated; I10 Essential (primary) hypertension; E78.5 Hyperlipidemia, unspecified; F17.210 Nicotine dependence, cigarettes, uncomplicated; F10.20 Alcohol dependence, uncomplicated; Z88.8 Allergy status to other drugs, medicaments and biological substances
CPT/HCPCS: 36415; 74022; 74177; 80053; 80061; 81001; 82962; 83036; 83690; 85025; 96361; 96374; 96375; 99285; C9113; J0360; J1170; J1650; J2270; J2405; J2550; J3411; J3475; J3480; J3490; J7030

== ENCOUNTER 2019-08-30 19:00 | Inpatient (IN) | payer BC ==
--- NOTE | 2019-08-30 19:25 | ER Document Report ---
Entered by RAJINDER JEAN SCRIBE 08/30/191921 Acting as scribe for:JAKE KWON DO ED GI/ - General Chief Complaint: Abdominal Pain Stated Complaint: DIARRHEA/ABDOMINAL PAIN Time Seen by Provider: 08/30/19 19:20 Primary Care Provider: SHILOH MOSHER PA-C [Primary Care Provider] - Follow up as needed Information source: Patient Notes: This 59 year old female patient presents to the emergency department today with complaints of lower abdominal cramping with associated nausea. Patient is an alcoholic and she was just admitted here for 3 days with alcoholic pancreatitis. Patient was discharged this morning at 11:30 AM and she states she felt well at that time. Patient states when she got home she developed nausea, vomiting, diarrhea, and lower abdominal cramping has not subsided. TRAVEL OUTSIDE OF THE [place] IN LAST 30 DAYS: No - Related Data Allergies/Adverse Reactions: celecoxib [From Celebrex] Allergy (Severe, Verified 08/30/19 19:18) Bronchospasm lisinopril Allergy (Severe, Verified 08/30/19 19:18) Bronchospasm hydrochlorothiazide Allergy (Intermediate, Verified 08/30/19 19:18) Bronchospasm Past Medical History - General Information source: Patient, [facility] Records - Social History Smoking Status: Unknown if Ever Smoked Cigarette use (# per day): No Frequency of alcohol use: Heavy Drug Abuse: None Lives with: Family Family History: None, Reviewed & Not Pertinent - Past Medical History Cardiac Medical History: Reports: Hx Hypertension Pulmonary Medical History: Reports: Hx Asthma, Hx Pneumonia, Hx Sleep Apnea Neurological Medical History: Reports: Hx Migraine Musculoskeletal Medical History: Reports Hx Arthritis Past Surgical History: Reports: Hx Breast Surgery, Hx Section, Hx Gynecologic Surgery, Hx Orthopedic Surgery - Cervical fusion, Bilat feet, Other - colonoscopy 2013 - Immunizations Hx Diphtheria, Pertussis, Tetanus Vaccination: Yes Hx Pneumococcal Vaccination: 12/19/14 Review of Systems - Review of Systems Constitutional: No symptoms reported EENT: No symptoms reported Cardiovascular: No symptoms reported Respiratory: No symptoms reported Gastrointestinal: See HPI, Abdominal pain, Diarrhea, Nausea, Vomiting Genitourinary: No symptoms reported Female Genitourinary: No symptoms reported Musculoskeletal: No symptoms reported Skin: No symptoms reported Hematologic/Lymphatic: No symptoms reported Neurological/Psychological: No symptoms reported -: Yes All other systems reviewed and negative Physical Exam - Vital signs Vitals: Temp Pulse Resp BP Pulse Ox 99.2 F 89 18 166/97 H 99 08/30/19 19:50 08/30/19 19:50 08/30/19 19:50 08/30/19 19:50 08/30/19 19:50 - Notes Notes: Physical Exam: General: Alert, appears uncomfortable. HEENT: Normocephalic. Atraumatic. PERRL. Extraocular movements intact. Oropharynx clear. Neck: Supple. Non-tender. Respiratory: No respiratory distress. Clear and equal breath sounds bilaterally. Cardiovascular: Regular rate and rhythm. Abdominal: Morbidly obese. Non-tender. No distension. Normal Bowel Sounds. Back: No gross abnormalities. Extremities: Moves all four extremities. Upper extremities: Normal inspection. Normal ROM. Lower extremities: Normal inspection. No edema. Normal ROM. Neurological: Normal cognition. AAOx4. Normal speech. Psychological: Normal affect. Normal Mood. Skin: Warm. Dry. Normal color. Course - Vital Signs Vital signs: Temp Pulse Resp BP Pulse Ox 99.2 F 89 18 166/97 H 99 08/30/19 19:50 08/30/19 19:50 08/30/19 19:50 08/30/19 19:50 08/30/19 19:50 - Laboratory Result Diagrams: 08/30/19 19:58 08/30/19 21:29 Laboratory results interpreted by me: 08/30/19 08/30/19 08/30/19 19:58 19:58 21:29 MCV 102 H MCH 35.3 H RDW 17.1 H Potassium 3.4 L Chloride 113 H Anion Gap 1 L BUN 3 L Creatinine 0.48 L Calcium 8.2 L AST 38 H Albumin 3.2 L Lipase 1168.2 H Urine Ketones TRACE H Urine Blood LARGE H Discharge - Discharge Clinical Impression: Acute pancreatitis Qualifiers: Pancreatitis type: alcohol induced Acute pancreatitis complication: unspecified Qualified Code(s): K85.20 - Alcohol induced acute pancreatitis without necrosis or infection Hypertension Qualifiers: Hypertension type: unspecified Qualified Code(s): I10 - Essential (primary) hypertension Condition: Stable Disposition: ADMITTED INPATIENT Admitting Provider: Cathy (Hospitalist) Unit Admitted: Medical Floor Referrals: SHILOH MOSHER PA-C [Primary Care Provider] - Follow up as needed I personally performed the services described in the documentation, reviewed and edited the documentation which was dictated to the scribe in my presence, and it accurately records my words and actions.
[2019-08-30] MEDS ORDERED: NORMAL SALINE 1000 ML 1,000 ML IV ONE (19:39)
[2019-08-30 20:08] LABS: ABSOLUTE BASOPHILS # (AUTO) 0.1 10^3/uL (0.0-0.2); ABSOLUTE EOSINOPHILS # (AUTO) 0.1 10^3/uL (0.0-0.6); ABSOLUTE LYMPHOCYTES (AUTO) 1.1 10^3/uL (0.5-4.7); ABSOLUTE MONOCYTES (AUTO) 0.4 10^3/uL (0.1-1.4); ABSOLUTE NEUT (AUTO) 5.5 10^3/uL (1.7-8.2); EOSINOPHILS % (AUTO) 1.1 % (0-6); HEMATOCRIT 40.4 % (36.0-47.0); HEMOGLOBIN 13.9 g/dL (12.0-15.5); LYMPHOCYTES % (AUTO) 15.6 % (13-45); MEAN CORPUSCULAR HEMOGLOBIN 35.3 pg (27.0-33.4); MEAN CORPUSCULAR HGB CONC 34.5 g/dL (32.0-36.0); MEAN CORPUSCULAR VOLUME 102 fl (80-97); MONOCYTES % (AUTO) 5.7 % (3-13); PLATELET COUNT 233 10^3/uL (150-450); RED BLOOD COUNT 3.95 10^6/uL (3.72-5.28); RED CELL DISTRIBUTION WIDTH 17.1 % (11.5-14.0); SEGMENTED NEUTROPHILS % (AUTO) 76.6 % (42-78); TOTAL CELLS COUNTED % (AUTO) 100 %; WHITE BLOOD COUNT 7.2 10^3/uL (4.0-10.5)
[2019-08-30 20:18] LABS: APPEARANCE,URINE SLIGHTLY-CLOUDY; BILIRUBIN,URINE NEGATIVE (NEGATIVE); COLOR,URINE YELLOW; GLUCOSE, URINE NEGATIVE (NEGATIVE); KETONES,URINE TRACE mg/dL (NEGATIVE); PROTEIN,URINE NEGATIVE (NEGATIVE); URINE SPECIFIC GRAVITY 1.008; UROBILINOGEN,URINE NEGATIVE mg/dL (<2.0)
[2019-08-30 21:50] LABS: ALBUMIN 3.2 g/dL (3.5-5.0); ALKALINE PHOSPHATASE 84 U/L (38-126); ASPARTATE AMINO TRANSFERASE 38 U/L (14-36); BILIRUBIN,TOTAL 0.5 mg/dL (0.2-1.3); BLOOD UREA NITROGEN 3 mg/dL (7-20); CALCIUM 8.2 mg/dL (8.4-10.2); GLUCOSE 107 mg/dL (75-110); POTASSIUM 3.4 mmol/L (3.6-5.0); TOTAL PROTEIN 6.6 g/dL (6.3-8.2)
[2019-08-30] MEDS ORDERED: METOCLOPRAMIDE HCL INJ/PF 10 MG/2 ML SDV IV ONE (21:50)
[2019-08-30] MEDS ORDERED: DIPHENHYDRAMINE HCL 50 MG/ML VIAL IV ONE (21:50)
[2019-08-30 21:55] LABS: CARBON DIOXIDE 27 mmol/L (22-30); CHLORIDE 113 mmol/L (98-107)
[2019-08-30 22:01] LABS: ANION GAP 1 (5-19)
[2019-08-30] MEDS ORDERED: HYDRALAZINE HCL INJ/PF 20 MG/1 ML SDV IV ONE (23:05)
[2019-08-31] MEDS ORDERED: MAG HYDROX/AL HYDROX/SIMETH SUSP 30 ML UDCUP PO PRN (00:02)
[2019-08-31] MEDS ORDERED: LEVALBUTEROL HCL NEB 0.63 MG/3 ML AMPUL NEB PRN (00:02)
[2019-08-31] MEDS ORDERED: MAGNESIUM HYDROXIDE SUSP 30 ML UDCUP PO PRN (00:02)
[2019-08-31] MEDS ORDERED: HYDRALAZINE HCL INJ/PF 20 MG/1 ML SDV IV PRN (00:07)
[2019-08-31] MEDS ORDERED: MELATONIN 5 MG TABLET PO PRN (00:07)
[2019-08-31] MEDS ORDERED: GUAIFENESIN SYRP 200 MG/10 ML UDC PO PRN (00:07)
[2019-08-31] MEDS ORDERED: NICOTINE 21 MG/24 HR PATCH.TD24 TD PRN (00:07)
[2019-08-31] MEDS ORDERED: LORAZEPAM INJ 2 MG/1 ML VIAL IV PRN (00:07)
[2019-08-31] MEDS ORDERED: ACETAMINOPHEN 325 MG TABLET PO PRN (00:07)
[2019-08-31] MEDS ORDERED: ACETAMINOPHEN 650 MG SUPP.RECT PR PRN (00:07)
[2019-08-31] MEDS ORDERED: METOPROLOL TARTRATE PF/INJ 5 MG/5 ML SDV IV PRN (00:07)
[2019-08-31] MEDS: MORPHINE SULFATE 10 MG/ML INJ IV PRN ×7 (00:51→21:07)
[2019-08-31] MEDS: PROMETHAZINE HCL INJ 25 MG/1 ML VIAL IV PRN ×2 (00:51→05:14)
[2019-08-31] MEDS: POTASSI CL 20 MEQ/D5NS 1L 20 MEQ/1,000 ML RTUINJ IV PRN ×4 (00:52→21:09)
--- NOTE | 2019-08-31 00:59 | PDOC H&P ---
History of Present Illness Admission Date/PCP: 08/30/2019 23:39 SHILOH MOSHER PA-C Patient complains of: Abdominal pain History of Present Illness: ENZO MONIQUE is a 59 year old female who presented the emergency room with acute abdominal pain. She admits being discharged from the hospital at about noon today and going home feeling reasonably well. After eating at home she began having moderately intense intermittent lower abdominal cramping accompanied by diarrhea, nausea and vomiting. Her abdominal pain was also associated with hemorrhoidal pain after several episodes of diarrhea. She is not identified any additional accompanying or associated signs and symptoms. She admits prior similar episodes. She has not identified any aggravating or ameliorating factors for her abdominal pain. She was recently admitted to the hospital for acute on chronic alcoholic pancreatitis. In the emergency room she was found to have a mildly elevated lipase level over her most recent level from hospitalization. Additionally she was found to be mildly hypokalemic and she continued to be very nauseated and did not feel that she could take oral fluids or solids. She was subsequently admitted to the hospital for further evaluation and treatment. Past Medical History Cardiac Medical History: Reports: Hypertension Denies: Coronary Artery Disease, Myocardial Infarction Pulmonary Medical History: Reports: Asthma - Moderate persistent asthma, Pneumonia, Sleep Apnea - Obstructive sleep apnea Denies: Bronchitis, Chronic Obstructive Pulmonary Disease (COPD) EENT Medical History: Denies: Cataracts, Ears - Hearing aids Neurological Medical History: Reports: Migraine Denies: Hemorrhagic CVA, Ischemic CVA, Seizures Endocrine Medical History: Reports: Obesity Denies: Diabetes Mellitus Type 1, Diabetes Mellitus Type 2, Hyperthyroidism, Hypothyroidism Renal/ Medical History: Denies: Chronic Kidney Disease, Nephrolithiasis Malignancy Medical History: Reports: None GI Medical History: Reports: Other - Alcoholic pancreatitis Denies: Cirrhosis, Hepatitis Musculoskeltal Medical History: Reports: Arthritis Denies: Fibromyalgia Skin Medical History: Denies: Eczema, Psoriasis Psychiatric Medical History: Reports: Tobacco Dependency Denies: Alcohol Dependency, Depression, Substance Abuse Traumatic Medical History: Reports: None Hematology: Denies: Anemia, Bleeding Tendencies Infectious Medical History: Reports: None Past Surgical History Past Surgical History: Reports: Section, Orthopedic Surgery - Cervical fusion, Bilat feet, Other - colonoscopy 2013 Social History Information Source: Patient Lives with: Spouse/Significant other Smoking Status: Current Every Day Smoker Electronic Cigarette use?: No Frequency of Alcohol Use: Social Hx Recreational Drug Use: No Drugs: None Hx Prescription Drug Abuse: No - Advance Directive Resuscitation Status: Full Code Surrogate healthcare decision maker:: [place] Family History Family History: DM, Hypertension, Malignancy. denies: CAD Parental Family History Reviewed: Yes Children Family History Reviewed: No Sibling(s) Family History Reviewed.: Yes Medication/Allergy Home Medications: Albuterol Sulfate [Albuterol Sulfate Hfa] 1 puff IH Q4HP PRN 08/27/19 Ondansetron HCl [Zofran] 8 mg PO Q6 6 Days #18 tablet 08/30/19 Promethazine HCl [Phenergan 25 mg Tablet] 25 mg PO Q6 6 Days #18 tablet 08/30/19 Allergies/Adverse Reactions: celecoxib [From Celebrex] Allergy (Severe, Verified 08/30/19 19:18) Bronchospasm lisinopril Allergy (Severe, Verified 08/30/19 19:18) Bronchospasm hydrochlorothiazide Allergy (Intermediate, Verified 08/30/19 19:18) Bronchospasm Review of Systems Constitutional: ABSENT: chills, fever(s) Eyes: ABSENT: visual disturbances, other - Eye pain Ears: ABSENT: hearing changes, other - Ear pain Nose, Mouth, and Throat: ABSENT: headache(s), sore throat Cardiovascular: ABSENT: chest pain, palpitations Respiratory: ABSENT: cough, dyspnea Gastrointestinal: PRESENT: as per HPI, abdominal pain, diarrhea, nausea, vomiting. ABSENT: coffee ground emesis, constipation, hematemesis, hematochezia, melena Genitourinary: PRESENT: other - Mild to moderate vaginal bleeding present since previous hospital course. ABSENT: dysuria, hematuria Musculoskeletal: ABSENT: back pain, joint swelling Integumentary: ABSENT: pruritus, rash Neurological: ABSENT: confusion, convulsions, focal weakness, memory loss, syncope Psychiatric: ABSENT: anxiety, depression Endocrine: ABSENT: cold intolerance, heat intolerance Hematologic/Lymphatic: ABSENT: easy bleeding, easy bruising Allergic/Immunologic: ABSENT: seasonal rhinorrhea Physical Exam Vital Signs: Temp Pulse Resp BP Pulse Ox 98.4 F 91 18 169/90 H 97 08/30/19 23:26 08/30/19 23:26 08/30/19 23:26 08/30/19 23:26 08/30/19 23:26 Intake & Output 08/28/19 08/29/19 08/30/19 23:59 23:59 23:59 Weight 129.274 kg General appearance: PRESENT: no acute distress, cooperative, morbidly obese Head exam: PRESENT: atraumatic, normocephalic Eye exam: PRESENT: conjunctiva pink. ABSENT: conjunctival injection, scleral icterus Ear exam: PRESENT: normal external ear exam. ABSENT: bleeding, drainage Mouth exam: PRESENT: dry mucosa, neck supple Neck exam: ABSENT: thyromegaly, tracheal deviation Respiratory exam: PRESENT: clear to auscultation eric, symmetrical, unlabored Cardiovascular exam: PRESENT: RRR. ABSENT: clicks, gallop, rubs Pulses: PRESENT: normal radial pulses, normal dorsalis pedis pul Vascular exam: PRESENT: normal capillary refill. ABSENT: pallor GI/Abdominal exam: PRESENT: hypoactive bowel sounds, soft, tenderness - Moderate bilateral lower quadrant tenderness without localization Rectal exam: PRESENT: deferred Extremities exam: ABSENT: joint swelling, pedal edema Musculoskeletal exam: ABSENT: deformity, dislocation Neurological exam: PRESENT: alert, oriented to person, oriented to place, oriented to time, oriented to situation, CN II-XII grossly intact. ABSENT: motor sensory deficit Psychiatric exam: PRESENT: appropriate affect, normal mood Skin exam: PRESENT: dry, intact, warm. ABSENT: jaundice, rash, urticaria Results Laboratory Results: 08/30/19 19:58 08/30/19 21:29 08/30/19 08/30/19 08/30/19 19:58 19:58 19:58 WBC 7.2 RBC 3.95 Hgb 13.9 Hct 40.4 MCV 102 H MCH 35.3 H MCHC 34.5 RDW 17.1 H Plt Count 233 Seg Neutrophils % 76.6 Sodium Cancelled Potassium Cancelled Chloride Cancelled Carbon Dioxide Cancelled Anion Gap Cancelled BUN Cancelled Creatinine Cancelled Est GFR ( Amer) Cancelled Est GFR (Non-Af Amer) Cancelled Glucose Cancelled Lactic Acid Calcium Cancelled Magnesium Cancelled Total Bilirubin Cancelled AST Cancelled Alkaline Phosphatase Cancelled Total Protein Cancelled Albumin Cancelled Lipase Cancelled Urine Color YELLOW Urine Appearance SLIGHTLY-CLOUDY Urine pH 7.0 Ur Specific [place] 1.008 Urine Protein NEGATIVE Urine Glucose (UA) NEGATIVE Urine Ketones TRACE H Urine Blood LARGE H Urine RBC (Auto) 157 07/12/20 07/12/20 20:12 21:29 WBC RBC Hgb Hct MCV MCH MCHC RDW Plt Count Seg Neutrophils % Sodium 141.2 Potassium 3.4 L Chloride 113 H Carbon Dioxide 27 Anion Gap 1 L BUN 3 L Creatinine 0.48 L Est GFR ( Amer) > 60 Est GFR (Non-Af Amer) Glucose 107 Lactic Acid 1.3 Calcium 8.2 L Magnesium 2.0 Total Bilirubin 0.5 AST 38 H Alkaline Phosphatase 84 Total Protein 6.6 Albumin 3.2 L Lipase 1168.2 H Urine Color Urine Appearance Urine pH Ur Specific [place] Urine Protein Urine Glucose (UA) Urine Ketones Urine Blood Urine RBC (Auto) Assessment and Plan - Diagnosis (1) Intermittent lower abdominal pain Is this a current diagnosis for this admission?: Yes (2) Hypokalemia Is this a current diagnosis for this admission?: Yes (3) Nausea, vomiting and diarrhea Is this a current diagnosis for this admission?: Yes (4) Asthma Qualifiers: Asthma severity: moderate Asthma persistence: persistent Asthma complication type: uncomplicated Qualified Code(s): J45.40 - Moderate persistent asthma, uncomplicated Is this a current diagnosis for this admission?: Yes (5) Obstructive sleep apnea Is this a current diagnosis for this admission?: Yes (6) Hypertension Qualifiers: Hypertension type: essential hypertension Qualified Code(s): I10 - Essential (primary) hypertension Is this a current diagnosis for this admission?: Yes (7) ETOH abuse Is this a current diagnosis for this admission?: Yes (8) Tobacco abuse Is this a current diagnosis for this admission?: Yes (9) Morbid obesity with BMI of 40.0-44.9, adult Is this a current diagnosis for this admission?: Yes (10) Postmenopausal vaginal bleeding Is this a current diagnosis for this admission?: Yes - Plan Summary Summary: Patient will be admitted to the ankle service where she will receive routine supportive and symptomatic cares. She will be treated with IV fluids utilizing D5 normal saline with 20 mEq of KCl per liter at 167 mL/h. She will receive morphine sulfate 2 to 4 mg IV every 2 hours as needed for control of pain. She will receive Ativan 1 mg IV every 4 hours as needed for anxiety or restlessness. She will receive Phenergan 12.5 mg IV every 4 hours as needed for control of nausea and vomiting. A gynecology consultation will be obtained with Dr. Janna Kim. CBCs, metabolic profiles, magnesium levels, amylase and lipase levels, as well as other laboratory and/or radiographic evaluations will be obtained as needed. Patient will be on a clear liquid diet initially. Blood pressure will be controlled with IV hydralazine and/or metoprolol until she can tolerate taking oral medications. Smoking cessation is advised and counseled briefly at the bedside. A nicotine replacement patch is available for the patient's use, if desired. - Time Time Spent with patient: 15-24 minutes Smoking Cessation Education: 3 to 10 minutes Medications reviewed and adjusted accordingly: Yes Anticipated discharge: Home - Inpatient Certification Based on my medical assessment, after consideration of the patient's comorbidities, presenting symptoms, or acuity I expect that the services needed warrant INPATIENT care.: Yes I certify that my determination is in accordance with my understanding of Medicare's requirements for reasonable and necessary INPATIENT services [42 CFR 412.3e].: Yes Medical Necessity: Significant Comorbidiites Make Outpatient Treatment Too Risky, Need For IV Fluids, Need for Pain Control, Risk of Complication if Not Cared For in Hospital
[2019-08-31] MEDS: HEPARIN SOD (PORCINE) 5,000 UNIT/ML 1 ML VIAL SUBCUT SCH ×3 (05:14→21:07)
[2019-08-31] MEDS: METOCLOPRAMIDE HCL INJ/PF 10 MG/2 ML SDV IV SCH ×4 (07:47→21:07)
[2019-08-31] MEDS: FAMOTIDINE INJ/PF 20 MG/2 ML SDV IV SCH ×2 (11:13→21:07)
[2019-08-31] MEDS: DOCUSATE SODIUM 100 MG/10 ML UDC PO SCH ×2 (11:26→18:25)
--- NOTE | 2019-08-31 12:42 | PDOC PROGRESS REPORT ---
Subjective Progress Note for:: 08/31/19 Subjective:: ENZO MONIQUE is a 59 year old female who presented the emergency room with acute abdominal pain. She admits being discharged from the hospital at about noon today and going home feeling reasonably well. After eating at home she began having moderately intense intermittent lower abdominal cramping accompanied by diarrhea, nausea and vomiting. Her abdominal pain was also associated with hemorrhoidal pain after several episodes of diarrhea. She is not identified any additional accompanying or associated signs and symptoms. She admits prior similar episodes. She has not identified any aggravating or ameliorating factors for her abdominal pain. She was recently admitted to the hospital for acute on chronic alcoholic pancreatitis. In the emergency room she was found to have a mildly elevated lipase level over her most recent level from hospitalization. Additionally she was found to be mildly hypokalemic and she continued to be very nauseated and did not feel that she could take oral fluids or solids. She was subsequently admitted to the hospital for further evaluation and treatment. 09/17/2007. No acute events overnight. Awake and alert, cooperative, oriented x3, answers questions apparently, still complaining of mild abdominal pain, tolerating p.o. intake, mild nausea, still having some diarrhea, denies any fever, chills, chest pain, shortness of breath, constipation or any urinary symptoms. Reason For Visit: LOWER ABDOMINAL PAIN,HYPOKALEMIA,NAUSEA,VOMITING, Physical Exam Vital Signs: Temp Pulse Resp BP Pulse Ox 98.2 F 95 17 144/92 H 94 08/31/19 08:13 08/31/19 08:13 08/31/19 08:13 08/31/19 08:13 08/31/19 08:13 Intake & Output 08/30/19 08/31/19 09/01/19 06:59 06:59 06:59 Intake Total 1000 Balance 1000 Weight 135.9 kg General appearance: PRESENT: morbidly obese Head exam: PRESENT: atraumatic, normocephalic Respiratory exam: PRESENT: clear to auscultation eric. ABSENT: rales, rhonchi, wheezes Cardiovascular exam: PRESENT: RRR. ABSENT: diastolic murmur, rubs, systolic murmur GI/Abdominal exam: PRESENT: normal bowel sounds, soft, tenderness. ABSENT: distended, guarding, mass, organolmegaly, rebound Neurological exam: PRESENT: alert, awake, oriented to person, oriented to place, oriented to time, oriented to situation, CN II-XII grossly intact. ABSENT: motor sensory deficit Results Laboratory Results: 08/30/19 19:58 08/30/19 21:29 08/30/19 08/30/19 08/30/19 19:58 19:58 19:58 WBC 7.2 RBC 3.95 Hgb 13.9 Hct 40.4 MCV 102 H MCH 35.3 H MCHC 34.5 RDW 17.1 H Plt Count 233 Seg Neutrophils % 76.6 Sodium Cancelled Potassium Cancelled Chloride Cancelled Carbon Dioxide Cancelled Anion Gap Cancelled BUN Cancelled Creatinine Cancelled Est GFR ( Amer) Cancelled Est GFR (Non-Af Amer) Cancelled Glucose Cancelled Lactic Acid Calcium Cancelled Magnesium Cancelled Total Bilirubin Cancelled AST Cancelled Alkaline Phosphatase Cancelled Total Protein Cancelled Albumin Cancelled Lipase Cancelled Urine Color YELLOW Urine Appearance SLIGHTLY-CLOUDY Urine pH 7.0 Ur Specific [place] 1.008 Urine Protein NEGATIVE Urine Glucose (UA) NEGATIVE Urine Ketones TRACE H Urine Blood LARGE H Urine RBC (Auto) 157 08/30/19 08/30/19 20:12 21:29 WBC RBC Hgb Hct MCV MCH MCHC RDW Plt Count Seg Neutrophils % Sodium 141.2 Potassium 3.4 L Chloride 113 H Carbon Dioxide 27 Anion Gap 1 L BUN 3 L Creatinine 0.48 L Est GFR ( Amer) > 60 Est GFR (Non-Af Amer) Glucose 107 Lactic Acid 1.3 Calcium 8.2 L Magnesium 2.0 Total Bilirubin 0.5 AST 38 H Alkaline Phosphatase 84 Total Protein 6.6 Albumin 3.2 L Lipase 1168.2 H Urine Color Urine Appearance Urine pH Ur Specific [place] Urine Protein Urine Glucose (UA) Urine Ketones Urine Blood Urine RBC (Auto) Assessment and Plan - Diagnosis (1) Nausea, vomiting and diarrhea Is this a current diagnosis for this admission?: Yes Plan: Unlikely infectious or C. difficile colitis. Patient did not receive any antibiotics in the previous admission. Recently diagnosed with alcoholic pancreatitis. History of alcohol abuse. Recent binge drinking. Presented with with elevated lipase. Severe abdominal pain. CT positive for pancreatic inflammation and stranding. No necrosis. No cholelithiasis or choledocholithiasis. Was discharged home on 08/30/2019 was readmitted, last night for persistent diarrhea. Continue all receiving oral boluses, antiemetics, stool culture, ova, parasite, C. difficile toxin. (2) Acute alcoholic pancreatitis Qualifiers: Acute pancreatitis complication: no infection or necrosis Qualified Code(s): K85.20 - Alcohol induced acute pancreatitis without necrosis or infection Is this a current diagnosis for this admission?: Yes Plan: Recently diagnosed with alcoholic pancreatitis. History of alcohol abuse. Recent binge drinking. Presented with with elevated lipase. Severe abdominal pain. CT positive for pancreatic inflammation and stranding. No necrosis. No cholelithiasis or choledocholithiasis. Was discharged home on 08/30/2019 was readmitted, last night for persistent diarrhea. Continue aggressive volume resuscitation guided by volume status, opioid and non-opioid analgesics, advance diet as tolerated. (3) Hypokalemia Is this a current diagnosis for this admission?: Yes Plan: Due to GI losses. Replace as needed. No acute EKG. Continue telemetry. Hyperkalemia protocol. (4) Postmenopausal vaginal bleeding Is this a current diagnosis for this admission?: Yes Plan: WASTE SPECIALIST consulted. Pending recommendation. (5) ETOH abuse Is this a current diagnosis for this admission?: Yes Plan: Denies any auditory, visual hallucinations. Denies any anxiety. History of heavy alcohol abuse. Binge eating on 21 August. Presenting with acute pancreatitis. Denies any history of hospitalization for alcohol withdrawal or DT. Continue folic acid, thiamine, benzos, seizure disorder and aspiration precautions. DT precautions. (6) Morbid obesity with BMI of 40.0-44.9, adult Is this a current diagnosis for this admission?: Yes Plan: TSH, lipid panel A1c all negative from previous admission. Diet and lifestyle modification recommended. A candidate for bariatric evaluation. (7) Tobacco abuse Is this a current diagnosis for this admission?: Yes Plan: Counseled on quitting. NicoDerm patch was provided. - Plan Summary Summary: Patient will be admitted to the ankle service where she will receive routine supportive and symptomatic cares. She will be treated with IV fluids utilizing D5 normal saline with 20 mEq of KCl per liter at 167 mL/h. She will receive morphine sulfate 2 to 4 mg IV every 2 hours as needed for control of pain. She will receive Ativan 1 mg IV every 4 hours as needed for anxiety or restlessness. She will receive Phenergan 12.5 mg IV every 4 hours as needed for control of nausea and vomiting. A gynecology consultation will be obtained with Dr. Janna Kim. CBCs, metabolic profiles, magnesium levels, amylase and lipase le vels, as well as other laboratory and/or radiographic evaluations will be obtained as needed. Patient will be on a clear liquid diet initially. Blood pressure will be controlled with IV hydralazine and/or metoprolol until she can tolerate taking oral medications. Smoking cessation is advised and counseled briefly at the bedside. A nicotine replacement patch is available for the patient's use, if desired.
--- NOTE | 2019-08-31 19:03 | PDOC CONSULTATION ---
Consultation Consult Date: 08/31/19 Provider Consulted: REBEKAH DANGELO Consult reason:: post menopausal bleeding History of Present Illness Admission Date/PCP: 08/30/19 23:40 SHILOH MOSHER PA-C Patient complains of: post menopausal bleeding that started on her previous admission Saturday08/28/19 History of Present Illness: ENZO MONIQUE is a 59 year old female who was admitted for pancreatis, abdominal pain and other co-morbidities last week. She was discharged yesterday AM but then returned a few hours later and readmitted. I was consulted regarding the complaint of vaginal bleeding which the patient indicates began during her last admission. Bleeding began on Saturday08/28/19. It has been mild to moderate. She indicates that she has been menopausal x 9 years with no bleeding at all. She states that she has not been sexually active in those 9 years as well. Past Medical History Cardiac Medical History: Reports: Hypertension Denies: Coronary Artery Disease, Myocardial Infarction Pulmonary Medical History: Reports: Asthma - Moderate persistent asthma, Pneumonia, Sleep Apnea - Obstructive sleep apnea Denies: Bronchitis, Chronic Obstructive Pulmonary Disease (COPD) EENT Medical History: Denies: Cataracts, Ears - Hearing aids Neurological Medical History: Reports: Migraine Denies: Hemorrhagic CVA, Ischemic CVA, Seizures Endocrine Medical History: Reports: Obesity Denies: Diabetes Mellitus Type 1, Diabetes Mellitus Type 2, Hyperthyroidism, Hypothyroidism Renal/ Medical History: Denies: Chronic Kidney Disease, Nephrolithiasis Malignancy Medical History: Reports: None GI Medical History: Reports: Other - Alcoholic pancreatitis Denies: Cirrhosis, Hepatitis Musculoskeltal Medical History: Reports: Arthritis Denies: Fibromyalgia Skin Medical History: Denies: Eczema, Psoriasis Psychiatric Medical History: Reports: Tobacco Dependency Denies: Alcohol Dependency, Depression, Substance Abuse Traumatic Medical History: Reports: None Infectious Medical History: Reports: None Social History Information Source: Patient Lives with: Spouse/Significant other Smoking Status: Current Some Day Smoker Electronic Cigarette use?: No Cigars Per Day: 2 Number of Years Smokin Frequency of Alcohol Use: Heavy Hx Recreational Drug Use: No Drugs: None, Marijuana Hx Prescription Drug Abuse: No - Advance Directive Resuscitation Status: Full Code Family History Family History: DM, Hypertension, Malignancy. denies: CAD Parental Family History Reviewed: Yes Children Family History Reviewed: Yes Sibling(s) Family History Reviewed.: Yes - denies family history of ovarian, b reast, colon or uterine cancer Medication/Allergy Home Medications: Albuterol Sulfate [Albuterol Sulfate Hfa] 2 puff IH ASDIR PRN 08/27/19 Fluticasone/Salmeterol [Advair 500-50 Diskus 14 Dose/Diskus] 1 puff IH BID 08/31/19 Melatonin 50 mg PO QHS 08/31/19 Allergies/Adverse Reactions: celecoxib [From Celebrex] Allergy (Severe, Verified 08/30/19 19:18) Bronchospasm lisinopril Allergy (Severe, Verified 08/30/19 19:18) Bronchospasm hydrochlorothiazide Allergy (Intermediate, Verified 08/30/19 19:18) Bronchospasm Review of Systems Constitutional: PRESENT: as per HPI Physical Exam - Physical Exam Vital Signs: Temp Pulse Resp BP Pulse Ox 98.2 F 95 17 144/92 H 94 08/31/19 08:13 08/31/19 08:13 08/31/19 08:13 08/31/19 08:13 08/31/19 08:13 Intake & Output 08/30/19 08/31/19 09/01/19 06:59 06:59 06:59 Intake Total 1000 1000 Balance 1000 1000 Weight 135.9 kg General appearance: PRESENT: no acute distress, cooperative - Gynecological Exam Labia: normal Urethra: normal Introitus: normal Perineum: normal Vagina: normal Cervix: normal, other - small amount of dark red blood extruding from cervix Result Laboratory Results: 08/30/19 19:58 08/30/19 21:29 08/30/19 08/30/19 08/30/19 19:58 19:58 19:58 WBC 7.2 RBC 3.95 Hgb 13.9 Hct 40.4 MCV 102 H MCH 35.3 H MCHC 34.5 RDW 17.1 H Plt Count 233 Seg Neutrophils % 76.6 Sodium Cancelled Potassium Cancelled Chloride Cancelled Carbon Dioxide Cancelled Anion Gap Cancelled BUN Cancelled Creatinine Cancelled Est GFR ( Amer) Cancelled Est GFR (Non-Af Amer) Cancelled Glucose Cancelled Lactic Acid Calcium Cancelled Magnesium Cancelled Total Bilirubin Cancelled AST Cancelled Alkaline Phosphatase Cancelled Total Protein Cancelled Albumin Cancelled Lipase Cancelled Urine Color YELLOW Urine Appearance SLIGHTLY-CLOUDY Urine pH 7.0 Ur Specific [place] 1.008 Urine Protein NEGATIVE Urine Glucose (UA) NEGATIVE Urine Ketones TRACE H Urine Blood LARGE H Urine RBC (Auto) 157 08/30/19 08/30/19 20:12 21:29 WBC RBC Hgb Hct MCV MCH MCHC RDW Plt Count Seg Neutrophils % Sodium 141.2 Potassium 3.4 L Chloride 113 H Carbon Dioxide 27 Anion Gap 1 L BUN 3 L Creatinine 0.48 L Est GFR ( Amer) > 60 Est GFR (Non-Af Amer) Glucose 107 Lactic Acid 1.3 Calcium 8.2 L Magnesium 2.0 Total Bilirubin 0.5 AST 38 H Alkaline Phosphatase 84 Total Protein 6.6 Albumin 3.2 L Lipase 1168.2 H Urine Color Urine Appearance Urine pH Ur Specific [place] Urine Protein Urine Glucose (UA) Urine Ketones Urine Blood Urine RBC (Auto) Assessment & Plan - Diagnosis (1) Acute pancreatitis Qualifiers: Pancreatitis type: alcohol induced Acute pancreatitis complication: unspecified Qualified Code(s): K85.20 - Alcohol induced acute pancreatitis without necrosis or infection (2) Hypertension Qualifiers: Hypertension type: essential hypertension Qualified Code(s): I10 - Essential (primary) hypertension Is this a current diagnosis for this admission?: Yes (3) Hypokalemia Is this a current diagnosis for this admission?: Yes (4) Intermittent lower abdominal pain Is this a current diagnosis for this admission?: Yes (5) Nausea, vomiting and diarrhea Is this a current diagnosis for this admission?: Yes (6) Postmenopausal vaginal bleeding Is this a current diagnosis for this admission?: Yes (7) Abdominal pain Qualifiers: Abdominal location: generalized Qualified Code(s): R10.84 - Generalized abdominal pain Is this a current diagnosis for this admission?: Yes (8) Acute alcoholic pancreatitis Qualifiers: Acute pancreatitis complication: no infection or necrosis Qualified Co de(s): K85.20 - Alcohol induced acute pancreatitis without necrosis or infection Is this a current diagnosis for this admission?: Yes (9) Asthma Qualifiers: Asthma severity: moderate Asthma persistence: persistent Asthma complication type: uncomplicated Qualified Code(s): J45.40 - Moderate persistent asthma, uncomplicated Is this a current diagnosis for this admission?: Yes (10) Asthma exacerbation Qualifiers: Asthma severity: severe Asthma persistence: persistent Qualified Code(s): J45.51 - Severe persistent asthma with (acute) exacerbation Is this a current diagnosis for this admission?: Yes (11) Bronchitis Is this a current diagnosis for this admission?: Yes (12) ETOH abuse Is this a current diagnosis for this admission?: Yes (13) Elevated lipase Is this a current diagnosis for this admission?: Yes (14) Morbid obesity with BMI of 40.0-44.9, adult Is this a current diagnosis for this admission?: Yes (15) Obstructive sleep apnea Is this a current diagnosis for this admission?: Yes (16) Pancreatitis Qualifiers: Chronicity: acute Acute pancreatitis complication: unspecified Is this a current diagnosis for this admission?: Yes - Time Time Spent: 30 to 50 Minutes Critical Time spent with patient: 15-24 minutes Smoking Cessation Education: 3 to 10 minutes Medications reviewed and adjusted accordingly: Yes Anticipated discharge: Home Within: Other - Plan Summary Plan Summary: patient educated regarding concerns of possible malignancy vs the preferable possibility that her sudden uterine bleeding could be associated with the anticoagulation that she started during her previous admission. I will order a pelvic sonogram for further evaluation. I discussed with her that we normally see patients outpatient in the office to collect an endometrial biopsy but that depending on the plans of her primary team and the results of her ultrasound she may possibly have a D&C here in the hospital, however this is less preferable because of the patient's anesthesia risks due to her co-morbidities. Will discuss with her primary team. Will also begin Progesterone to hopefully stop the bleeding as well as potentially treat hyperplasia.
[2019-08-31] MEDS ORDERED: MEDROXYPROGESTERONE ACET 10 MG TABLET PO SCH (19:15)
[2019-09-01] MEDS: MORPHINE SULFATE 10 MG/ML INJ IV PRN ×8 (01:08→22:37)
[2019-09-01] MEDS: POTASSI CL 20 MEQ/D5NS 1L 20 MEQ/1,000 ML RTUINJ IV PRN ×3 (04:51→22:37)
[2019-09-01] MEDS: HEPARIN SOD (PORCINE) 5,000 UNIT/ML 1 ML VIAL SUBCUT SCH ×3 (05:01→22:37)
[2019-09-01 05:31] LABS: HEMATOCRIT 37.2 % (36.0-47.0); HEMOGLOBIN 12.5 g/dL (12.0-15.5); MEAN CORPUSCULAR HEMOGLOBIN 34.7 pg (27.0-33.4); MEAN CORPUSCULAR HGB CONC 33.6 g/dL (32.0-36.0); MEAN CORPUSCULAR VOLUME 103 fl (80-97); PLATELET COUNT 193 10^3/uL (150-450); RED BLOOD COUNT 3.61 10^6/uL (3.72-5.28); RED CELL DISTRIBUTION WIDTH 17.4 % (11.5-14.0); WHITE BLOOD COUNT 7.5 10^3/uL (4.0-10.5)
[2019-09-01 05:48] LABS: AMYLASE 94 U/L (30-110); CALCIUM 7.6 mg/dL (8.4-10.2); GLUCOSE 96 mg/dL (75-110); POTASSIUM 3.5 mmol/L (3.6-5.0)
[2019-09-01 05:54] LABS: BLOOD UREA NITROGEN < 2 mg/dL (7-20); CARBON DIOXIDE 22 mmol/L (22-30); CHLORIDE 116 mmol/L (98-107)
[2019-09-01 05:58] LABS: ANION GAP 3 (5-19)
[2019-09-01] MEDS ORDERED: LEVALBUTEROL HCL NEB 0.63 MG/3 ML AMPUL NEB PRN (08:25)
--- NOTE | 2019-09-01 09:33 | RADIOLOGY REPORT (SQ) ---
EXAM DESCRIPTION: U/S NON OB PEL TV W/DOPPLER IMAGES COMPLETED DATE/TIME: 09/01/2019 5:31 am REASON FOR STUDY: pelvic pain and postmenopausal bleeding COMPARISON: None. TECHNIQUE: Dynamic and static grayscale images acquired of the pelvis via transvaginal approach and recorded on PACS. Additional selected color Doppler and spectral images recorded. LIMITATIONS: Body habitus and overlying bowel gas. FINDINGS: Uterus measures 6.9 x 4.9 x 4.1 cm. Thickened endometrium 18 mm. Ovaries are not visuali zed. No free fluid. IMPRESSION: Thickened endometrium for postmenopausal female. Differential is endometrial hyperplasi a or carcinoma. TECHNICAL DOCUMENTATION: JOB ID: [id number] 2010 [employer]- All Rights Reserved Rev-07/05 Reading location - IP/workstation name: [email or web address]
[2019-09-01] MEDS: POTASSI CL 20 MEQ/50 ML RIDER 20 MEQ/50 ML RTUPB IV SCH ×2 (09:38→12:07)
[2019-09-01] MEDS: FAMOTIDINE INJ/PF 20 MG/2 ML SDV IV SCH ×2 (09:40→22:37)
[2019-09-01] MEDS: METOCLOPRAMIDE HCL INJ/PF 10 MG/2 ML SDV IV SCH ×4 (09:40→22:37)
[2019-09-01] MEDS: FLUTICASONE/VILANTEROL 100-25 MCG/DOSE IH SCH (09:44)
--- NOTE | 2019-09-01 12:51 | PDOC PROGRESS REPORT ---
Subjective Progress Note for:: 09/01/19 Subjective:: s/w Dr. Moreira regarding patient US. and need for f/u in office for outpatient eval with EMBx and pap smear. Ok to increase provera to 20mg BID or even TID to help keep vaginal bleeding at bay if needed. Will increase to BID for now. Reason For Visit: LOWER ABDOMINAL PAIN,HYPOKALEMIA,NAUSEA,VOMITING, Physical Exam - Physical Exam Vital Signs: Temp Pulse Resp BP Pulse Ox 97.7 F 81 17 149/76 H 98 09/01/19 11:24 09/01/19 11:24 09/01/19 11:24 09/01/19 11:24 09/01/19 11:24 Intake & Output 08/31/19 09/01/19 09/02/19 06:59 06:59 06:59 Intake Total 1000 5205 400 Output Total 2700 800 Balance 1000 2505 -400 Weight 135.9 kg 135.9 kg - Gynecological Exam Labia: normal Urethra: normal Introitus: normal Perineum: normal Vagina: normal Cervix: normal, other - small amount of dark red blood extruding from cervix Result Laboratory Results: 09/01/19 05:06 09/01/19 05:06 09/01/19 09/01/19 05:06 05:06 WBC 7.5 RBC 3.61 L Hgb 12.5 Hct 37.2 MCV 103 H MCH 34.7 H MCHC 33.6 RDW 17.4 H Plt Count 193 Sodium 141.2 Potassium 3.5 L Chloride 116 H Carbon Dioxide 22 Anion Gap 3 L BUN < 2 L Creatinine 0.41 L Est GFR ( Amer) > 60 Glucose 96 Calcium 7.6 L Magnesium 1.7 Amylase 94 Lipase 917.1 H Impressions: Transvaginal US 09/01/19 00:00 IMPRESSION: Thickened endometrium for postmenopausal female. Differential is endometrial hyperplasia or carcinoma. Status: Imported from PACS Assessment & Plan - Diagnosis (1) Postmenopausal vaginal bleeding Is this a current diagnosis for this admission?: Yes Plan: US with no fibroids however, thickened ES and would recommend EMBx and pap smear in office. Can be done as outpatient with Dr. Jackson if patient desires since she did BME and Pelvic exam already. Increase Provera to BID for now and would continue until she can f/u with provider in the office. Would not recommend estrogen in this patient due to her comorbidities. Dr. Moreira stated that she will possibly be going home tomorrow. - Time Time Spent with patient: Less than 15 minutes Medications reviewed and adjusted accordingly: Yes Anticipated discharge: Home Within: Other - pending primary team
[2019-09-01] MEDS: MEDROXYPROGESTERONE ACET 10 MG TABLET PO SCH (17:23)
[2019-09-01] MEDS ORDERED: ONDANSETRON HCL INJ/PF 4 MG/2 ML SDV IV PRN (18:10)
[2019-09-01] MEDS ORDERED: MAG HYDROX/AL HYDROX/SIMETH SUSP 30 ML UDCUP PO ONE (18:19)
--- NOTE | 2019-09-01 18:24 | PDOC PROGRESS REPORT ---
Subjective Progress Note for:: 09/01/19 Subjective:: Patient still having some abdominal pain. Also having nausea. She does state her diarrhea has completely resolved. Denies any fever or chills. Asking if her diet can be advanced. Reason For Visit: LOWER ABDOMINAL PAIN,HYPOKALEMIA,NAUSEA,VOMITING, Physical Exam Vital Signs: Temp Pulse Resp BP Pulse Ox 98.2 F 72 17 159/79 H 98 09/01/19 15:40 09/01/19 15:40 09/01/19 15:40 09/01/19 15:40 09/01/19 15:40 Intake & Output 08/31/19 09/01/19 09/02/19 06:59 06:59 06:59 Intake Total 1000 5205 1400 Output Total 2700 800 Balance 1000 2505 600 Weight 135.9 kg 135.9 kg General appearance: PRESENT: no acute distress, cooperative Neck exam: ABSENT: JVD Respiratory exam: PRESENT: clear to auscultation eric, unlabored. ABSENT: tachypnea, wheezes Cardiovascular exam: PRESENT: RRR, +S1, +S2. ABSENT: tachycardia GI/Abdominal exam: PRESENT: normal bowel sounds, soft, tenderness - LUQ. ABSENT: distended, firm, guarding, rebound, rigid Neurological exam: PRESENT: alert, awake, oriented to person, oriented to place, oriented to time Results Laboratory Results: 09/01/19 05:06 09/01/19 05:06 09/01/19 09/01/19 05:06 05:06 WBC 7.5 RBC 3.61 L Hgb 12.5 Hct 37.2 MCV 103 H MCH 34.7 H MCHC 33.6 RDW 17.4 H Plt Count 193 Sodium 141.2 Potassium 3.5 L Chloride 116 H Carbon Dioxide 22 Anion Gap 3 L BUN < 2 L Creatinine 0.41 L Est GFR ( Amer) > 60 Glucose 96 Calcium 7.6 L Magnesium 1.7 Amylase 94 Lipase 917.1 H Impressions: Transvaginal US 09/01/19 00:00 IMPRESSION: Thickened endometrium for postmenopausal female. Differential is endometrial hyperplasia or carcinoma. Assessment and Plan - Diagnosis (1) Nausea, vomiting and diarrhea Is this a current diagnosis for this admission?: Yes Plan: Diarrhea is currently resolved. Nausea is improved. Added Zofran to current Reglan regimen. Diet advanced. Nausea vomiting and abdominal pain could be secondary to acute pancreatitis or alcoholic gastritis. Currently on Pepcid. Maalox as needed. Likely discharge on PPI. (2) Acute alcoholic pancreatitis Qualifiers: Acute pancreatitis complication: no infection or necrosis Qualified Code(s): K85.20 - Alcohol induced acute pancreatitis without necrosis or infection Is this a current diagnosis for this admission?: Yes Plan: Recently diagnosed with alcoholic pancreatitis. History of alcohol abuse. Recent binge drinking. Presented with with elevated lipase. Severe abdominal pain. CT positive for pancreatic inflammation and stranding. No necrosis. No cholelithiasis or choledocholithiasis. Was discharged home on 08/30/2019 was readmitted for persistent diarrhea. Continue aggressive volume resuscitation guided by volume status, opioid and non -opioid analgesics, advance diet as tolerated. Advanced to soft diet today. (3) Hypokalemia Is this a current diagnosis for this admission?: Yes Plan: Due to GI losses. Replete with IV and p.o. supplements. Continue telemetry. (4) Postmenopausal vaginal bleeding Is this a current diagnosis for this admission?: Yes Plan: Transvaginal ultrasound done which shows thickened endometrial stripe. LIVESTOCK FARMWORKER is following and recommend outpatient follow-up for endometrial biopsy and Pap smear in the office. Started on Provera by [employer] DIES[employer] LOCOMOTIVE. (5) ETOH abuse Is this a current diagnosis for this admission?: Yes Plan: Denies any auditory, visual hallucinations. Denies any anxiety. History of heavy alcohol abuse. Binge eating on 21 August. Presenting with acute pancreatitis. Denies any history of hospitalization for alcohol withdrawal or DT. Continue folic acid, thiamine, benzos, seizure disorder and aspiration precautions. DT precautions. (6) Morbid obesity with BMI of 40.0-44.9, adult Is this a current diagnosis for this admission?: Yes Plan: TSH, lipid panel A1c all negative from previous admission. Diet and lifestyle modification recommended. A candidate for bariatric evaluation. (7) Tobacco abuse Is this a current diagnosis for this admission?: Yes Plan: Counseled on quitting. NicoDerm patch was provided. - Time Time Spent with patient: 15-24 minutes
[2019-09-02] MEDS: MORPHINE SULFATE 10 MG/ML INJ IV PRN ×3 (02:19→08:18)
[2019-09-02] MEDS: HEPARIN SOD (PORCINE) 5,000 UNIT/ML 1 ML VIAL SUBCUT SCH (05:07)
[2019-09-02] MEDS: POTASSI CL 20 MEQ/D5NS 1L 20 MEQ/1,000 ML RTUINJ IV PRN (05:14)
[2019-09-02 06:48] LABS: HEMATOCRIT 37.4 % (36.0-47.0); HEMOGLOBIN 12.6 g/dL (12.0-15.5); MEAN CORPUSCULAR HEMOGLOBIN 34.7 pg (27.0-33.4); MEAN CORPUSCULAR HGB CONC 33.7 g/dL (32.0-36.0); MEAN CORPUSCULAR VOLUME 103 fl (80-97); RED BLOOD COUNT 3.63 10^6/uL (3.72-5.28); RED CELL DISTRIBUTION WIDTH 16.9 % (11.5-14.0); WHITE BLOOD COUNT 7.6 10^3/uL (4.0-10.5)
[2019-09-02 07:02] LABS: CALCIUM 7.5 mg/dL (8.4-10.2); CARBON DIOXIDE 22 mmol/L (22-30); GLUCOSE 114 mg/dL (75-110); POTASSIUM 3.9 mmol/L (3.6-5.0)
[2019-09-02 07:04] LABS: BLOOD UREA NITROGEN < 2 mg/dL (7-20)
[2019-09-02 07:08] LABS: CHLORIDE 116 mmol/L (98-107)
[2019-09-02 07:12] LABS: ANION GAP 3 (5-19)
[2019-09-02 07:16] LABS: PLATELET COUNT 183 10^3/uL (150-450)
[2019-09-02] MEDS: PROMETHAZINE HCL INJ 25 MG/1 ML VIAL IV PRN (08:19)
[2019-09-02] MEDS: FLUTICASONE/VILANTEROL 100-25 MCG/DOSE IH SCH (09:45)
[2019-09-02] MEDS: FAMOTIDINE INJ/PF 20 MG/2 ML SDV IV SCH (09:45)
[2019-09-02] MEDS: MEDROXYPROGESTERONE ACET 10 MG TABLET PO SCH (09:45)
[2019-09-02] MEDS: METOCLOPRAMIDE HCL INJ/PF 10 MG/2 ML SDV IV SCH ×2 (09:47→11:03)
--- NOTE | 2019-09-02 12:22 | PDOC DISCHARGE SUMMARY ---
Impression - Admit/DC Date/PCP Admission Date/Primary Care Provider: 08/30/19 23:40 SHILOH MOSHER PA-C Discharge Date: 09/02/19 - Discharge Diagnosis (1) Acute alcoholic pancreatitis Is this a current diagnosis for this admission?: Yes (2) Nausea, vomiting and diarrhea Is this a current diagnosis for this admission?: Yes (3) Hypokalemia Is this a current diagnosis for this admission?: Yes (4) Postmenopausal vaginal bleeding Is this a current diagnosis for this admission?: Yes (5) ETOH abuse Is this a current diagnosis for this admission?: Yes (6) Morbid obesity with BMI of 40.0-44.9, adult Is this a current diagnosis for this admission?: Yes (7) Tobacco abuse Is this a current diagnosis for this admission?: Yes - Additional Information Resuscitation Status: Full Code Referrals: REBEKAH DANGELO MD [ACTIVE STAFF] - SHILOH MOSHER PA-C [Primary Care Provider] - 09/09/19 10:45 am Prescriptions: Famotidine [Pepcid] 20 mg PO BID #60 tablet RX: Medroxyprogesterone Acet [Provera 10 mg Tablet] 20 mg PO BID 30 Days #120 RX: Tramadol HCl [Ultram 50 mg Tablet] 50 mg PO BIDP PRN #14 tablet PRN Reason: Ondansetron [Zofran Odt 4 mg Tablet] 1 - 2 tab PO Q4HP PRN #10 tab.rapdis PRN Reason: For Nausea/Vomiting Home Medications: RX: Albuterol Sulfate [Albuterol Sulfate Hfa] 2 puff IH ASDIR PRN 08/27/19 RX: Fluticasone/Salmeterol [Advair 500-50 Diskus 14 Dose/Diskus] 1 puff IH BID 08/31/19 RX: Melatonin 50 mg PO QHS 08/31/19 Famotidine [Pepcid] 20 mg PO BID #60 tablet 09/02/19 Ondansetron [Zofran Odt 4 mg Tablet] 1 - 2 tab PO Q4HP PRN #10 tab.rapdis 09/02/19 RX: Acetaminophen [Tylenol 325 mg Tablet] 650 mg PO Q4HP PRN tablet 09/02/19 RX: Medroxyprogesterone Acet [Provera 10 mg Tablet] 20 mg PO BID 30 Days #120 09/02/19 RX: Tramadol HCl [Ultram 50 mg Tablet] 50 mg PO BIDP PRN #14 tablet 09/02/19 History of Present Illiness History of Present Illness: According to admitting provider: ENZO MONIQUE is a 59 year old female who presented the emergency room with acute abdominal pain. She admits being discharged from the hospital at about noon today and going home feeling reasonably well. After eating at home she began having moderately intense intermittent lower abdominal cramping accompanied by diarrhea, nausea and vomiting. Her abdominal pain was also associated with hemorrhoidal pain after several episodes of diarrhea. She is not identified any additional accompanying or associated signs and symptoms. She admits prior similar episodes. She has not identified any aggravating or ameliorating factors for her abdominal pain. She was recently admitted to the hospital for acute on chronic alcoholic pancreatitis. In the emergency room she was found to have a mildly elevated lipase level over her most recent level from hospitalization. Additionally she was found to be mildly hypokalemic and she continued to be very nauseated and did not feel that she could take oral fluids or solids. She was subsequently admitted to the hospital for further evaluation and treatment. Hospital Course Hospital Course: Patient was admitted to the hospital for evaluation of nausea vomiting and diarrhea. On presentation, patient was concern for C. difficile infection. However this is unlikely as patient's diarrhea later resolved and has been resolved for the past 1-1/2 days now. Also she never received antibiotics durin g her prior recent admission. I believe her nausea and vomiting were likely secondary to her pancreatitis or alcoholic gastritis. It is also possible that she could have had accompanying gastroenteritis that culminated in her diarrhea. She was hypokalemic on presentation secondary to her vomiting and diarrhea and was adequately repleted with p.o. and IV supplements. She was given IV fluids and pain medication. She developed postmenopausal bleeding on her recent admission and was evaluated for that during this admission by NUTRITION SERVICES MANAGER. Transvaginal ultrasound revealed thickened endometrial stripe. Patient was started on Provera by gynecology and set up for outpatient follow-up to have an endometrial biopsy and Pap smear in the office. Patient is being discharged today as she has remained stable, her nausea has improved significantly, her diarrhea has resolved and she has been able to tolerate and keep down GI soft diet. She has been discharged with pain medications as well as antiemetics. She is to follow-up with her primary care provider and SECURITIES CONSULTANT in the clinic. Physical Exam Vital Signs: Temp Pulse Resp BP Pulse Ox 98.3 F 74 16 158/84 H 97 09/02/19 11:42 09/02/19 11:42 09/02/19 11:42 09/02/19 11:42 09/02/19 11:42 Intake & Output 09/01/19 09/02/19 09/03/19 06:59 06:59 06:59 Intake Total 5205 5070 1081 Output Total 2700 4000 Balance 2505 1070 1081 Weight 135.9 kg 135.9 kg General appearance: PRESENT: no acute distress, cooperative Neck exam: ABSENT: JVD Respiratory exam: PRESENT: unlabored. ABSENT: accessory muscle use, retraction GI/Abdominal exam: PRESENT: soft, tenderness. ABSENT: distended, firm, guarding, rebound, rigid Neurological exam: PRESENT: alert, awake, oriented to person, oriented to place, oriented to time Results Laboratory Results: WBC 7.6 10^3/uL (4.0-10.5) 09/02/19 06:12 RBC 3.63 10^6/uL (3.72-5.28) L 09/02/19 06:12 Hgb 12.6 g/dL (12.0-15.5) 09/02/19 06:12 Hct 37.4 % (36.0-47.0) 09/02/19 06:12 MCV 103 fl (80-97) H 09/02/19 06:12 MCH 34.7 pg (27.0-33.4) H 09/02/19 06:12 MCHC 33.7 g/dL (32.0-36.0) 09/02/19 06:12 RDW 16.9 % (11.5-14.0) H 09/02/19 06:12 Plt Count 183 10^3/uL (150-450) 09/02/19 06:12 Lymph % (Auto) 15.6 % (13-45) 08/30/19 19:58 Barron % (Auto) 5.7 % (3-13) 08/30/19 19:58 Eos % (Auto) 1.1 % (0-6) 08/30/19 19:58 Baso % (Auto) 1.0 % (0-2) 08/30/19 19:58 Absolute Neuts (auto) 5.5 10^3/uL (1.7-8.2) 08/30/19 19:58 Absolute Lymphs (auto) 1.1 10^3/uL (0.5-4.7) 08/30/19 19:58 Absolute Monos (auto) 0.4 10^3/uL (0.1-1.4) 08/30/19 19:58 Absolute Eos (auto) 0.1 10^3/uL (0.0-0.6) 08/30/19 19:58 Absolute Basos (auto) 0.1 10^3/uL (0.0-0.2) 08/30/19 19:58 Seg Neutrophils % 76.6 % (42-78) 08/30/19 19:58 Sodium 141.1 mmol/L (137-145) 09/02/19 06:12 Potassium 3.9 mmol/L (3.6-5.0) 09/02/19 06:12 Chloride 116 mmol/L (98-107) H 09/02/19 06:12 Carbon Dioxide 22 mmol/L (22-30) 09/02/19 06:12 Anion Gap 3 (5-19) L 09/02/19 06:12 BUN < 2 mg/dL (7-20) L 09/02/19 06:12 Creatinine 0.43 mg/dL (0.52-1.25) L 09/02/19 06:12 Est GFR ( Amer) > 60 (>60) 09/02/19 06:12 Est GFR (Non-Af Amer) Cancelled 08/30/19 19:58 Est GFR (MDRD) Non-Af > 60 (>60) 09/02/19 06:12 Glucose 114 mg/dL (75-110) H 09/02/19 06:12 Lactic Acid 1.3 mmol/L (0.7-2.1) 08/30/19 20:12 Calcium 7.5 mg/dL (8.4-10.2) L 09/02/19 06:12 Magnesium 1.8 mg/dL (1.6-2.3) 09/02/19 06:12 Total Bilirubin 0.5 mg/dL (0.2-1.3) 08/30/19 21:29 Direct Bilirubin 0.0 mg/dL (0.0-0.4) 08/30/19 21:29 Neonat Total Bilirubin Not Reportable 08/30/19 21:29 Neonat Direct Bilirubin Not Reportable 08/30/19 21:29 Neonat Indirect Bili Not Reportable 08/30/19 21:29 AST 38 U/L (14-36) H 08/30/19 21:29 ALT 23 U/L (<35) 08/30/19 21:29 Alkaline Phosphatase 84 U/L (38-126) 08/30/19 21:29 Total Protein 6.6 g/dL (6.3-8.2) 08/30/19 21:29 Albumin 3.2 g/dL (3.5-5.0) L 08/30/19 21:29 Amylase 94 U/L (30-110) 09/01/19 05:06 Lipase 917.1 U/L (23-300) H 09/01/19 05:06 EGFR Cancelled 08/30/19 19:58 Urine Color YELLOW 08/30/19 19:58 Urine Appearance SLIGHTLY-CLOUDY 08/30/19 19:58 Urine pH 7.0 (5.0-9.0) 08/30/19 19:58 Ur Specific [place] 1.008 08/30/19 19:58 Urine Protein NEGATIVE mg/dL (NEGATIVE) 08/30/19 19:58 Urine Glucose (UA) NEGATIVE mg/dL (NEGATIVE) 08/30/19 19:58 Urine Ketones TRACE mg/dL (NEGATIVE) H 08/30/19 19:58 Urine Blood LARGE (NEGATIVE) H 08/30/19 19:58 Urine Nitrite (Reflex) NEGATIVE (NEGATIVE) 08/30/19 19:58 Urine Bilirubin NEGATIVE (NEGATIVE) 08/30/19 19:58 Urine Urobilinogen NEGATIVE mg/dL (<2.0) 08/30/19 19:58 Leukocyte Esterase Rfl NEGATIVE (NEGATIVE) 08/30/19 19:58 Urine RBC (Auto) 157 /HPF 08/30/19 19:58 Urine Bacteria (Auto) TRACE /HPF 08/30/19 19:58 Urine WBC (Reflex) 9 /HPF 08/30/19 19:58 Squamous Epi Cells Auto 1 /HPF 08/30/19 19:58 Urine Mucus (Auto) RARE /LPF 08/30/19 19:58 Urine Ascorbic Acid NEGATIVE (NEGATIVE) 08/30/19 19:58 Serum Alcohol < 10 mg/dL (NONE DETECTED) 08/30/19 21:29 Impressions: Transvaginal US 09/01/19 00:00 IMPRESSION: Thickened endometrium for postmenopausal female. Differential is endometrial hyperplasia or carcinoma. Plan Time Spent: Less than 30 Minutes Stroke Is this a Stroke Patient?: No Acute Heart Failure - Is this a Heart Failure Patient?: No
[2019-09-02 12:25] VITALS: BP 158/69
== END 2019-09-02 12:50 | disposition home or self-care (01) | DRG 439 ==
LOC: ER 19:00 → EH 23:40 → 4S 08-31 00:43
PROVIDERS: ADMIT Emergency Medicine; ATTEND Internal Medicine
DX: K85.20 Alcohol induced acute pancreatitis without necrosis or infection (principal); Z68.41 Body mass index [BMI] 40.0-44.9, adult; I10 Essential (primary) hypertension; J45.909 Unspecified asthma, uncomplicated; E87.6 Hypokalemia; N95.0 Postmenopausal bleeding; G47.33 Obstructive sleep apnea (adult) (pediatric); E66.01 Morbid (severe) obesity due to excess calories; F17.210 Nicotine dependence, cigarettes, uncomplicated; F10.10 Alcohol abuse, uncomplicated; Y90.0 Blood alcohol level of less than 20 mg/100 ml; Z71.6 Tobacco abuse counseling; Z79.51 Long term (current) use of inhaled steroids
CPT/HCPCS: 36415; 76830; 80048; 80307; 81001; 82150; 83605; 83690; 83735; 85025; 85027; 87070; 93976; 94660; 96361; 96374; 96375; 99285; J0360; J1200; J1644; J2270; J2550; J2765; J3480; J3490; J7030; S0028

== ENCOUNTER 2019-09-04 18:30 | Emergency (ER) | payer BC ==
--- NOTE | 2019-09-04 19:07 | ER Document Report ---
ED Dizziness/Weakness - General Chief Complaint: General Weakness Stated Complaint: WEAKNESS Time Seen by Provider: 09/04/19 18:46 Primary Care Provider: SHILOH MOSHER PA-C [Primary Care Provider] - Follow up as needed Mode of Arrival: Medic - Patient arrived via EMS on a gurney. In route the facility she had a 2500 cc LR bolus as well as 6 mg of Zofran. Information source: Patient TRAVEL OUTSIDE OF THE [place] IN LAST 30 DAYS: No - HPI Patient complains to provider of: Altered mental status, Weakness, Other - Nausea and vomiting Onset/Duration: Persistent Quality of pain: Achy Severity: Moderate Associated symptoms: Dizzy, Weak all over - Related Data Allergies/Adverse Reactions: celecoxib [From Celebrex] Allergy (Severe, Verified 08/30/19 19:18) Bronchospasm lisinopril Allergy (Severe, Verified 08/30/19 19:18) Bronchospasm hydrochlorothiazide Allergy (Intermediate, Verified 08/30/19 19:18) Bronchospasm Past Medical History - Social History Smoking Status: Unknown if Ever Smoked Family History: DM, Hypertension, Malignancy. denies: CAD - Past Medical History Cardiac Medical History: Reports: Hx Hypertension Denies: Hx Coronary Artery Disease, Hx Heart Attack Pulmonary Medical History: Reports: Hx Asthma - Moderate persistent asthma, Hx Pneumonia, Hx Sleep Apnea - Obstructive sleep apnea Denies: Hx Bronchitis, Hx COPD Neurological Medical History: Reports: Hx Migraine. Denies: Hx Cerebrovascular Accident, Hx Seizures Endocrine Medical History: Reports: Hx Diabetes Mellitus Type 2. Denies: Hx Diabetes Mellitus Type 1, Hx Hyperthyroidism, Hx Hypothyroidism Renal/ Medical History: Denies: Hx Peritoneal Dialysis GI Medical History: Denies: Hx Cirrhosis, Hx Hepatitis Musculoskeletal Medical History: Reports Hx Arthritis, Denies Hx Fibromyalgia Skin Medical History: Denies Hx Eczema, Denies Hx Psoriasis Psychiatric Medical History: Denies: Hx Depression Infectious Medical History: Denies: Hx Hepatitis Past Surgical History: Reports: Hx Breast Surgery, Hx Section, Hx Gynecologic Surgery, Hx Orthopedic Surgery - Cervical fusion, Bilat feet, Other - colonoscopy 2013 - Immunizations Hx Diphtheria, Pertussis, Tetanus Vaccination: Yes Hx Pneumococcal Vaccination: 12/19/14 Review of Systems - Review of Systems -: Yes ROS unobtainable due to patient's medical condition Physical Exam - Vital signs Vitals: Temp Pulse Resp BP Pulse Ox 100.7 F H 95 24 H 184/84 H 95 09/04/19 18:34 09/04/19 18:34 09/04/19 18:34 09/04/19 18:34 09/04/19 18:34 Interpretation: Normal - General General appearance: Appears well, Lethargic In distress: None - HEENT Head: Normocephalic, Atraumatic Eyes: Normal. No: Scleral icterus Cornea: Normal Pupils: PERRL - Respiratory Respiratory status: No respiratory distress Chest status: Nontender Breath sounds: Normal Chest palpation: Normal - Cardiovascular Rhythm: Regular Heart sounds: Normal auscultation Murmur: No - Abdominal Inspection: Normal Distension: No distension Bowel sounds: Normal Tenderness: Nontender Organomegaly: No organomegaly - Back Back: Normal, Nontender - Extremities General upper extremity: Normal inspection, Nontender, Normal color, Normal ROM, Normal temperature General lower extremity: Normal inspection, Nontender, Normal color, Normal ROM, Normal temperature, Normal weight bearing. No: Vishal's sign - Neurological Neuro grossly intact: Yes Cognition: Normal Orientation: AAOx4 Lizzy Coma Scale Eye Opening: Spontaneous Lizzy Coma Scale Verbal: Oriented Lizzy Coma Scale Motor: Obeys Commands [place] Coma Scale Total: 15 Speech: Normal Motor strength normal: LUE, RUE, LLE, RLE Sensory: Normal - Psychological Associated symptoms: Normal affect, Normal mood - Skin Skin Temperature: Warm Skin Moisture: Dry Skin Color: Normal Course - Re-evaluation Re-evalutation: 09/04/19 22:18 Patient is ambulatory in the room conversive with the staff when she has needs. However she does not appear to be cooperative when you ask her questions she is not inclined answer. Including Delph basic health history and routine questions. CAT scan results radiology results lab results were reviewed and compared to prior visit CT indicates pancreatitis seems to be improving patient was advised that she should certainly follow-up with her private doctor for definitive radiology readings and follow-up until complete resolution for these and all other healthcare needs. She does have a provider on file 09/04/19 22:29 Patient is ambulatory with a rhythmic and steady gait in route to the restroom awake alert oriented x4 09/04/19 22:40 Patient was advised to go home and take her hypertension medication. - Vital Signs Vital signs: Temp Pulse Resp BP Pulse Ox 99.7 F 84 18 182/79 H 96 09/04/19 22:29 09/04/19 22:29 09/04/19 22:29 09/04/19 22:29 09/04/19 22:29 - Laboratory Result Diagrams: 09/04/19 19:46 09/04/19 19:46 Laboratory results interpreted by me: 09/04/19 09/04/19 09/04/19 19:46 19:46 21:06 WBC 12.8 H RBC 3.62 L MCV 102 H MCH 34.5 H RDW 17.2 H Lymph % (Auto) 7.7 L Absolute Neuts (auto) 11.1 H Seg Neutrophils % 86.3 H Sodium 134.5 L BUN 3 L Glucose 121 H AST 38 H Urine Protein 30 H Urine Ketones TRACE H Urine Blood MODERATE H Labs- All tests 24 hr 09/04/19 09/04/19 09/04/19 19:46 19:46 19:46 WBC 12.8 H RBC 3.62 L Hgb 12.5 Hct 36.9 MCV 102 H MCH 34.5 H MCHC 33.9 RDW 17.2 H Plt Count 305 Lymph % (Auto) 7.7 L [place] % (Auto) 5.1 Eos % (Auto) 0.0 Baso % (Auto) 0.9 Absolute Neuts (auto) 11.1 H Absolute Lymphs (auto) 1.0 Absolute Monos (auto) 0.6 Absolute Eos (auto) 0.0 Absolute Basos (auto) 0.1 Seg Neutrophils % 86.3 H Sodium 134.5 L Potassium 3.9 Chloride 102 Carbon Dioxide 27 Anion Gap 6 BUN 3 L Creatinine 0.53 Est GFR ( Amer) > 60 Est GFR (MDRD) Non-Af > 60 Glucose 121 H Calcium 8.8 Total Bilirubin 0.5 Direct Bilirubin 0.0 Neonat Total Bilirubin Not Reportable Neonat Direct Bilirubin Not Reportable Neonat Indirect Bili Not Reportable AST 38 H ALT 23 Alkaline Phosphatase 87 Troponin I 0.015 Total Protein 7.2 Albumin 3.5 Lipase 119.0 Urine Color Urine Appearance Urine pH Ur Specific [place] Urine Protein Urine Glucose (UA) Urine Ketones Urine Blood Urine Nitrite Urine Bilirubin Urine Urobilinogen Ur Leukocyte Esterase Urine WBC (Auto) Urine RBC (Auto) Squamous Epi Cells Auto Urine Mucus (Auto) Urine Ascorbic Acid Urine Opiates Screen Urine Methadone Screen Ur Barbiturates Screen Ur Phencyclidine Scrn Ur Amphetamines Screen U Benzodiazepines Scrn Urine Cocaine Screen U Marijuana (THC) Screen 09/04/19 09/04/19 21:06 21:06 WBC RBC Hgb Hct MCV MCH MCHC RDW Plt Count Lymph % (Auto) [place] % (Auto) Eos % (Auto) Baso % (Auto) Absolute Neuts (auto) Absolute Lymphs (auto) Absolute Monos (auto) Absolute Eos (auto) Absolute Basos (auto) Seg Neutrophils % Sodium Potassium Chloride Carbon Dioxide Anion Gap BUN Creatinine Est GFR ( Amer) Est GFR (MDRD) Non-Af Glucose Calcium Total Bilirubin Direct Bilirubin Neonat Total Bilirubin Neonat Direct Bilirubin Neonat Indirect Bili AST ALT Alkaline Phosphatase Troponin I Total Protein Albumin Lipase Urine Color YELLOW Urine Appearance CLEAR Urine pH 7.0 Ur Specific [place] 1.011 Urine Protein 30 H Urine Glucose (UA) NEGATIVE Urine Ketones TRACE H Urine Blood MODERATE H Urine Nitrite NEGATIVE Urine Bilirubin NEGATIVE Urine Urobilinogen NEGATIVE Ur Leukocyte Esterase NEGATIVE Urine WBC (Auto) 1 Urine RBC (Auto) 14 Squamous Epi Cells Auto 1 Urine Mucus (Auto) RARE Urine Ascorbic Acid NEGATIVE Urine Opiates Screen UNCONFIRMED POSITIVE Urine Methadone Screen NEGATIVE Ur Barbiturates Screen NEGATIVE Ur Phencyclidine Scrn NEGATIVE Ur Amphetamines Screen NEGATIVE U Benzodiazepines Scrn NEGATIVE Urine Cocaine Screen NEGATIVE U Marijuana (THC) Screen UNCONFIRMED POSITIVE - Diagnostic Test Radiology results interpreted by me: 09/04/19 22:22 Chest X-Ray 09/04/19 18:52 IMPRESSION: NO ACUTE RADIOGRAPHIC FINDING IN THE CHEST. Head CT 09/04/19 18:52 IMPRESSION: 1. No acute intracranial findings. If there is clinical concern for acute stroke, MRI brain should be considered as a more sensitive evaluation. Abdomen/Pelvis CT 09/04/19 21:11 IMPRESSION: Pre-existing peripancreatic inflammatory stranding appears diminished from the previous examination dated 08/27/2019, compatible with resolving acute pancreatitis. The pancreatic parenchyma enhances normally. Persistent hypodensity within the uterus, previously found to represent endometrial thickening on the recent pelvic ultrasound dated 09/01/2019. Colonic diverticulosis without CT evidence of acute diverticulitis. TECHNICAL DOCUMENTATION: Quality ID # 436: Final reports with documentation of one or more dose reduction techniques (e.g., Automated exposure control, adjustment of the mA and/or kV according to patient size, use of iterative reconstruction technique) copyright 2010 [email or web address]- All Rights Reserved Discharge - Discharge Clinical Impression: Pancreatitis Qualifiers: Chronicity: chronic Pancreatitis type: alcohol induced Qualified Code(s): K86.0 - Alcohol-induced chronic pancreatitis Condition: Good Disposition: HOME, SELF-CARE Instructions: Pancreatitis ([facility]) Additional Instructions: Refrain from alcohol ingestion. Must follow-up with PMD for definitive radiology readings and follow-up until complete resolution. Follow-up with private doctor in 1 to 2 days for final radiology readings please return to the emergency room for any change worsening condition. Follow up with private M.D. for all other routine health care needs. Patient should take her antihypertensive medication as soon as she gets home. Referrals: SHILOH MOSHER PA-C [Primary Care Provider] - Follow up as needed
[2019-09-04] MEDS ORDERED: ACETAMINOPHEN 325 MG TABLET PO ONE (19:24)
--- NOTE | 2019-09-04 19:39 | RADIOLOGY REPORT (SQ) ---
EXAM DESCRIPTION: CHEST SINGLE VIEW IMAGES COMPLETED DATE/TIME: 09/04/2019 7:23 pm REASON FOR STUDY: pain sp fall COMPARISON: 03/25/2017 EXAM PARAMETERS: NUMBER OF VIEWS: One view. TECHNIQUE: Single frontal radiographic view of the chest acquired. RADIATION DOSE: NA LIMITATIONS: None. FINDINGS: LUNGS AND PLEURA: No opacities, masses or pneumothorax. No pleural effusion. MEDIASTINUM AND HILAR STRUCTURES: No masses. Contour normal. HEART AND VASCULAR STRUCTURES: Heart normal in size. Normal vasculature. BONES: No acute findings. HARDWARE: None in the chest. OTHER: No other significant finding. IMPRESSION: NO ACUTE RADIOGRAPHIC FINDING IN THE CHEST. TECHNICAL DOCUMENTATION: JOB ID: [id number] 2010 [employer]- All Rights Reserved Reading location - IP/workstation name: [email or web address]
[2019-09-04 20:07] LABS: ABSOLUTE BASOPHILS # (AUTO) 0.1 10^3/uL (0.0-0.2); MEAN CORPUSCULAR HEMOGLOBIN 34.5 pg (27.0-33.4); PLATELET COUNT 305 10^3/uL (150-450); TOTAL CELLS COUNTED % (AUTO) 100 %
[2019-09-04 20:24] LABS: ABSOLUTE MONOCYTES (AUTO) 0.6 10^3/uL (0.1-1.4); ABSOLUTE NEUT (AUTO) 11.1 10^3/uL (1.7-8.2); BASOPHILS % (AUTO) 0.9 % (0-2); HEMATOCRIT 36.9 % (36.0-47.0); HEMOGLOBIN 12.5 g/dL (12.0-15.5); LYMPHOCYTES % (AUTO) 7.7 % (13-45); MEAN CORPUSCULAR HGB CONC 33.9 g/dL (32.0-36.0); MEAN CORPUSCULAR VOLUME 102 fl (80-97); MONOCYTES % (AUTO) 5.1 % (3-13); RED BLOOD COUNT 3.62 10^6/uL (3.72-5.28); RED CELL DISTRIBUTION WIDTH 17.2 % (11.5-14.0); SEGMENTED NEUTROPHILS % (AUTO) 86.3 % (42-78); WHITE BLOOD COUNT 12.8 10^3/uL (4.0-10.5)
[2019-09-04 20:27] LABS: ALBUMIN 3.5 g/dL (3.5-5.0); ALKALINE PHOSPHATASE 87 U/L (38-126); ANION GAP 6 (5-19); ASPARTATE AMINO TRANSFERASE 38 U/L (14-36); BILIRUBIN,TOTAL 0.5 mg/dL (0.2-1.3); BLOOD UREA NITROGEN 3 mg/dL (7-20); CALCIUM 8.8 mg/dL (8.4-10.2); CARBON DIOXIDE 27 mmol/L (22-30); CHLORIDE 102 mmol/L (98-107); GLUCOSE 121 mg/dL (75-110); POTASSIUM 3.9 mmol/L (3.6-5.0); TOTAL PROTEIN 7.2 g/dL (6.3-8.2)
--- NOTE | 2019-09-04 20:34 | RADIOLOGY REPORT (SQ) ---
EXAM DESCRIPTION: Noncontrast CT head CLINICAL HISTORY: 59 years Female aloc TECHNIQUE: Noncontrast CT head. All CT scans at this facility use dose modulation, iterative reconstruction, and/or weight based dosing when appropriate to reduce radiation dose to as low as reasonably achievable. COMPARISON: September 12, 2018. FINDINGS: [place] matter, white matter, ventricles, and cisterns are within normal limits. No acute hemorrhage or mass effect. Visualized portions of paranasal sinuses and mastoids are clear. Visualized portions of the calvarium are within normal limits. IMPRESSION: 1. No acute intracranial findings. If there is clinical concern for acute stroke, MRI brain should be considered as a more sensitive evaluation.
[2019-09-04 21:34] LABS: APPEARANCE,URINE CLEAR; BILIRUBIN,URINE NEGATIVE (NEGATIVE); COLOR,URINE YELLOW; GLUCOSE, URINE NEGATIVE (NEGATIVE); KETONES,URINE TRACE mg/dL (NEGATIVE); LEUKOCYTE ESTERASE,URINE NEGATIVE (NEGATIVE); NITRITE,URINE NEGATIVE (NEGATIVE); PROTEIN,URINE 30 mg/dL (NEGATIVE); URINE SPECIFIC GRAVITY 1.011; UROBILINOGEN,URINE NEGATIVE mg/dL (<2.0)
[2019-09-04 22:01] LABS: URINE AMPHETAMINES SCREEN NEGATIVE; URINE BARBITURATES SCREEN NEGATIVE; URINE BENZODIAZEPINES SCREEN NEGATIVE; URINE COCAINE SCREEN NEGATIVE; URINE METHADONE SCREEN NEGATIVE; URINE PHENCYCLIDINE SCREEN NEGATIVE
[2019-09-04 22:06] LABS: URINE MARIJUANA (THC) SCREEN UNCONFIRMED POSITIVE
--- NOTE | 2019-09-04 22:13 | RADIOLOGY REPORT (SQ) ---
EXAM DESCRIPTION: CT ABDOMEN PELVIS WITH IV CONTRAST COMPLETED DATE/TME: 09/04/2019 21:11 CLINICAL HISTORY: 59 years, Female, pain COMPARISON: Prior study from 03/25/2017; CT from 08/27/2019 TECHNIQUE: Contrast enhanced CT of the abdomen/pelvis was acquired. Coronal and sagittal reformations were created. Images were obtained after the administration of 99 mL of Isovue-370 intravenous contrast. Images stored on PACS. All CT scanners at this facility use dose modulation, iterative reconstruction, and/or weight based dosing when appropriate to reduce radiation dose to as low as reasonably achievable (ALARA). [facility]: Dose Right [facility]: CareDose [facility]: Dose Right [facility]: Teradose 4D [facility]: [place] LIMITATIONS: None. FINDINGS: Limited evaluation of the lower chest reveals bands of opacity about the basilar segments of both lower lobes, indicating areas of atelectasis and/or scar. Liver, spleen, gallbladder, and right adrenal gland appear normal. There is nodular enlargement of the bilateral adrenal glands, unchanged from 03/25/2017, considered benign. Pre-existing peripancreatic inflammatory stranding appears diminished from the previous exam dated 08/27/2019. The pancreas otherwise appears to enhance normally. Kidneys enhance symmetrically. No hydronephrosis or hydroureter. The urinary bladder is well distended and shows no suspicious finding. A focus of hypodensity is noted about the central portion of the uterus on image 80 of series 3. This is suspicious for endometrial thickening, confirmed on sulcal ultrasound performed on 09/01/2019. Scattered colonic diverticula are noted. No adjacent inflammation. Appendix is normal. No evidence of bowel obstruction. Calcifications are evident about the abdominal aorta and proximal iliac vessels. There is a retroaortic left renal vein. No suspicious lymphadenopathy is appreciated. There are no drainable fluid collections. Mild diffuse anasarca is noted. Bone windows show no destructive osseous lesions. Bilateral hip joint osteoarthrosis is evident. IMPRESSION: Pre-existing peripancreatic inflammatory stranding appears diminished from the previous examination dated 08/27/2019, compatible with resolving acute pancreatitis. The pancreatic parenchyma enhances normally. Persistent hypodensity within the uterus, previously found to represent endometrial thickening on the recent pelvic ultrasound dated 09/01/2019. Colonic diverticulosis without CT evidence of acute diverticulitis. TECHNICAL DOCUMENTATION: Quality ID # 436: Final reports with documentation of one or more dose reduction techniques (e.g., Automated exposure control, adjustment of the mA and/or kV according to patient size, use of iterative reconstruction technique) copyright 2011 [employer]- All Rights Reserved
[2019-09-04 22:29] VITALS: BP 182/79
--- NOTE | 2019-09-05 11:46 | EKG REPORT ---
SEVERITY:- BORDERLINE ECG - SINUS RHYTHM BORDERLINE T ABNORMALITIES, ANT-LAT LEADS : Confirmed by: Ruben Karimi MD 05-Sep-2019 11:45:51
== END 2019-09-04 22:56 | disposition home or self-care (01) ==
LOC: ER 18:30
DX: K86.0 Alcohol-induced chronic pancreatitis (principal); R53.1 Weakness; R41.82 Altered mental status, unspecified; R11.2 Nausea with vomiting, unspecified; R42 Dizziness and giddiness; Z88.8 Allergy status to other drugs, medicaments and biological substances; I10 Essential (primary) hypertension; J45.909 Unspecified asthma, uncomplicated; E11.9 Type 2 diabetes mellitus without complications; Z20.828 Contact with and (suspected) exposure to other viral communicable diseases
CPT/HCPCS: 93005; 99285; 83690; 85025; 87635; 80053; 81001; 84484; 80307; 71045; 70450; 74177; 93010; C9803

== ENCOUNTER 2019-10-29 07:11 | Day surgery (SDC) | payer BC ==
[2019-10-29] MEDS ORDERED: PROPOFOL INJ 200 MG/20 ML VIAL IV ONE (07:29)
[2019-10-29] MEDS ORDERED: LIDOCAINE 2% INJ-PF (20 MG/ML) 10 ML AMPUL ONE (07:29)
--- NOTE | 2019-10-29 09:48 | Operative Report ---
Operative Report DATE OF SURGERY: 10/29/19 Operative Report: The risk, benefits and alternatives of the procedure including the risk of bleeding, perforation requiring surgery have been explained to the patient in detail and informed consent has been obtained. Patient is placed in a left, lateral decubital position. Timeout was called. Propofol medication is administered. Rectal examination is done which did not reveal any masses, tears or fissures. An Olympus videoscope was introduced into the patient's rectum. Scope was then carefully advanced all the way to the cecum. The cecum was identified by the usual anatomical landmarks including the ileocecal valve as well as the appendiceal office. Photodocumentation is obtained. Scope was then sequentially pulled back via the various segments of the colon including the ascending colon, hepatic flexure, transverse colon, splenic flexure, descending colon finding to the rectosigmoid portions of the colon. Retroflexion maneuvers performed. The risks benefits and alternatives of the procedure explained to the patient in detail and informed consent is obtained.A GIF Olympus video scope was inserted into the patient's mouth and hypopharynx, the esophagus is identified intubated and insufflated ,the scope was then advanced through the esophagus stomach and duodenum ,retroflexion maneuver is done, the esophagus stomach and first and second portions of the duodenum examined PREOPERATIVE DIAGNOSIS: Change in bowel habits. Blood in stool. POSTOPERATIVE DIAGNOSIS: Right colon inflammation status post biopsy rule out collagenous colitis. Lipoma noted in the ascending colon confirmed with biopsies. Diverticulosis. Gastritis status post biopsy OPERATION: Colonoscopy with biopsy. EGD with biopsy SURGEON: JOSELITO CHOE ANESTHESIA: LMAC TISSUE REMOVED OR ALTERED: As noted above. COMPLICATIONS: None. ESTIMATED BLOOD LOSS: None. INTRAOPERATIVE FINDINGS: As noted above. PROCEDURE: Patient tolerated the procedure well. No immediate postprocedure complications are noted. Patient is discharged in good condition. Discharge date 10/29/2019. Discharge diet: Regular. Discharge activity: Regular. 2 to 3-week follow-up to discuss findings. Patient is instructed to call the office or proceed to the emergency room should there be any further problems or questions. Wait on the pathology.
[2019-10-29 10:25] VITALS: BP 154/81
== END 2019-10-29 10:24 | disposition home or self-care (01) ==
LOC: END 07:11
PROVIDERS: ATTEND Internal Medicine Gastroenterology
DX: K52.9 Noninfective gastroenteritis and colitis, unspecified (principal); K57.30 Diverticulosis of large intestine without perforation or abscess without bleeding; D12.3 Benign neoplasm of transverse colon; K31.9 Disease of stomach and duodenum, unspecified; Z20.828 Contact with and (suspected) exposure to other viral communicable diseases; K92.1 Melena; J45.909 Unspecified asthma, uncomplicated; G47.33 Obstructive sleep apnea (adult) (pediatric); E66.9 Obesity, unspecified; Z79.899 Other long term (current) drug therapy
CPT/HCPCS: 43239; 45380; 88342 ×2; 88305 ×2; 00813; J2704; J3490; 813

== ENCOUNTER → 2019-11-18 | Outpatient (CLI) | payer BC ==
--- NOTE | 2019-11-18 13:02 | RADIOLOGY REPORT (SQ) ---
EXAM DESCRIPTION: U/S ABDOMEN LIMITED W/O DOP IMAGES COMPLETED DATE/TIME: 11/18/2019 12:01 pm REASON FOR STUDY: (R11.0)NAUSEA R11.0 NAUSEA COMPARISON: 07/22/2017 TECHNIQUE: Dynamic and static grayscale images acquired of the abdomen and recorded on PACS. Additio nal selected color Doppler and spectral images recorded. LIMITATIONS: None. FINDINGS: PANCREAS: No masses. Visualized pancreatic duct normal caliber. LIVER: No masses. Increased echogenicity. LIVER VASCULATURE: Normal directional flow of the main portal vein and hepatic veins. GALLBLADDER: No stones. Normal wall thickness. No pericholecystic fluid. ULTRASOUND-DETECTED PHILLIPS'S SIGN: Negative. INTRAHEPATIC DUCTS AND COMMON DUCT: CBD and intrahepatic ducts normal caliber. No filling defects. AORTA: No aneurysm. RIGHT KIDNEY: Normal size, 10.8 cm. Normal echogenicity. No solid or suspicious masses. No hydroneph rosis. No calcifications. PERITONEAL AND RIGHT PLEURAL SPACE: No ascites or effusions. OTHER: No other significant findings. IMPRESSION: There is some degree of hepatic steatosis. No acute finding. Normal gallbladder. TECHNICAL DOCUMENTATION: JOB ID: [id number] 2010 [employer]- All Rights Reserved Reading location - IP/workstation name: [email or web address]
--- NOTE | 2019-11-18 15:20 | RADIOLOGY REPORT (SQ) ---
EXAM DESCRIPTION: NM HIDA SCAN WITH CCK IMAGES COMPLETED DATE/TIME: 11/18/2019 2:04 pm REASON FOR STUDY: (R11.0)NAUSEA R11.0 NAUSEA COMPARISON: None. RADIONUCLIDE AND DOSE: DOSAGE RADIONUCLIDE: 5 millicuries Tc99m Mebrofenin. DOSAGE CCK: 2.2 micrograms. DOSAGE MORPHINE: Not required. The route of agent administration: Intravenous TECHNIQUE: Serial imaging right upper quadrant up to 60 minutes following injection of radionuclide. CCK injected after gallbladder visualized. LIMITATIONS: None. FINDINGS: LIVER: Normal visualization without areas of photopenia. INTRAHEPATIC BILE DUCTS: Normal size and no delay in visualization. COMMON BILE DUCT: Normal without dilatation. GALLBLADDER: Normal visualization. Calculated ejection fraction of 73%. Normal range is greater th an 35%. PHYSICAL RESPONSE: Patients presenting complaint was reproduced. OTHER: No other significant finding. IMPRESSION: Normal gallbladder ejection fraction of 73%. Patient's symptoms were reproduced with CC K administration. TECHNICAL DOCUMENTATION: JOB ID: [id number] 2010 [employer]- All Rights Reserved Reading location - IP/workstation name: [email or web address]
== END ==
LOC: RAD 11:20
PROVIDERS: ATTEND Internal Medicine Gastroenterology
DX: R11.0 Nausea (principal); K76.0 Fatty (change of) liver, not elsewhere classified
CPT/HCPCS: 76705; 78227; J2805; A9537; Q9969

== ENCOUNTER → 2019-11-25 | Outpatient (CLI) | payer BC ==
[2019-11-25 15:30] LABS: HEMATOCRIT 42.7 % (36.0-47.0); HEMOGLOBIN 14.5 g/dL (12.0-15.5); MEAN CORPUSCULAR HEMOGLOBIN 32.4 pg (27.0-33.4); MEAN CORPUSCULAR VOLUME 95 fl (80-97); PLATELET COUNT 376 10^3/uL (150-450); RED BLOOD COUNT 4.49 10^6/uL (3.72-5.28); RED CELL DISTRIBUTION WIDTH 14.8 % (11.5-14.0); WHITE BLOOD COUNT 7.2 10^3/uL (4.0-10.5)
[2019-11-25 15:52] LABS: ALKALINE PHOSPHATASE 94 U/L (38-126); ANION GAP 10 (5-19); ASPARTATE AMINO TRANSFERASE 35 U/L (14-36); BILIRUBIN,DIRECT 0.3 mg/dL (0.0-0.4); BILIRUBIN,TOTAL 0.4 mg/dL (0.2-1.3); BLOOD UREA NITROGEN 6 mg/dL (7-20); C-REACTIVE PROTEIN 11.3 mg/L (<10.0); CALCIUM 10.2 mg/dL (8.4-10.2); CARBON DIOXIDE 24 mmol/L (22-30); CHLORIDE 106 mmol/L (98-107); GLUCOSE 99 mg/dL (75-110); POTASSIUM 4.2 mmol/L (3.6-5.0)
[2019-11-25 16:34] LABS: ERYTHROCYTE SEDIMENTATION RATE 69 mm/hr (0-30)
--- NOTE | 2019-11-25 16:44 | RADIOLOGY REPORT (SQ) ---
EXAM DESCRIPTION: KUB IMAGES COMPLETED DATE/TIME: 11/25/2019 3:06 pm REASON FOR STUDY: GENERALIZED ABDOMINAL PAIN K59.00 CONSTIPATION, UNSPECIFIED R10.84 GENERALIZED A BDOMINAL PAIN Z68.33 BODY MASS INDEX BMI 33.0-33.9, ADULT COMPARISON: 08/27/2019 NUMBER OF VIEWS: One view. TECHNIQUE: Supine radiographic image of the abdomen acquired. LIMITATIONS: None. FINDINGS: BOWEL GAS PATTERN: Normal bowel gas pattern. No dilated loops. CALCIFICATIONS: No suspicious calcifications. SOFT TISSUES: No gross mass or suggestion of organomegaly. HARDWARE: None in the abdomen. BONES: No acute fracture. No worrisome bone lesions. OTHER: No other significant finding. IMPRESSION: NO RADIOGRAPHIC EVIDENCE FOR ACUTE ABDOMINAL DISEASE. TECHNICAL DOCUMENTATION: JOB ID: [id number] 2010 [email or web address]- All Rights Reserved Reading location - IP/workstation name: [email or web address]
== END ==
LOC: OD 14:12
PROVIDERS: ATTEND Physician Assistant
DX: R10.84 Generalized abdominal pain (principal); K59.00 Constipation, unspecified; R11.0 Nausea; Z68.33 Body mass index [BMI] 33.0-33.9, adult
CPT/HCPCS: 36415; 74018; 80053; 85027; 85652; 86140

== ENCOUNTER → 2019-12-03 | Outpatient (CLI) | payer BC ==
--- NOTE | 2019-12-03 15:09 | RADIOLOGY REPORT (SQ) ---
EXAM DESCRIPTION: NM GASTRIC EMPTYING STUDY IMAGES COMPLETED DATE/TIME: 12/03/2019 2:07 pm REASON FOR STUDY: R11.0 NAUSEA R11.0 NAUSEA COMPARISON: None. RADIONUCLIDE AND DOSE: 2 millicuries Tc-99m Sulfur Colloid. Egg salad sandwich The route of agent administration: Oral. TECHNIQUE: 1 minute serial static imaging performed at time of meal, 1 hour, 2 hours, 3 hours, and 4 hours as needed. Once stomach reaches 90% emptying, the test is complete. Image intensity values pl otted with respect to time with linear regression algorithm. LIMITATIONS: None. FINDINGS: Patient was observed for 4 hours. Immediate post meal serves as baseline. Gastric emptying at 30 minutes was 4.6%. Gastric emptying at 60 minutes was 9.4% Gastric emptying at 90 minutes was 14.2%. Gastric emptying at 120 minutes was 18.8%. Gastric emptying at 240 minutes was 35.2%. Normal values: 60 minutes: 30-90% retained. If less than 30%, abnormally rapid emptying. If greater than 90%, delaye d gastric emptying. 120 minutes: <60% retained. If greater than 60%, delayed gastric emptying. 240 minutes: <10% retained. If greater than 10%, delayed gastric emptying. IMPRESSION: Markedly delayed gastric emptying. TECHNICAL DOCUMENTATION: JOB ID: [id number] 2010 [employer]- All Rights Reserved rev-07/05 Reading location - IP/workstation name: [email or web address]
== END ==
LOC: RAD 08:05
PROVIDERS: ATTEND Internal Medicine Gastroenterology
DX: R11.0 Nausea (principal)
CPT/HCPCS: 78264; A9541

== ENCOUNTER 2019-12-17 12:03 | Day surgery (SDC) | payer BC ==
[2019-12-17] MEDS ORDERED: ONABOTULINUMTOXINA INJ/PF 100 UNIT SDV IJ ONE (13:00)
--- NOTE | 2019-12-17 14:00 | Operative Report ---
Operative Report DATE OF SURGERY: 12/17/19 Operative Report: The risks benefits and alternatives of the procedure explained to the patient in detail and informed consent is obtained.A GIF Olympus video scope was inserted into the patient's mouth and hypopharynx ,the esophagus is identified intubated and insufflated, the scope was then advanced through the esophagus stomach and duodenum ,retroflexion maneuver is done, the esophagus stomach and first and second portions of the duodenum examined PREOPERATIVE DIAGNOSIS: Weight loss, possible gastroparesis documented on gastric emptying scan POSTOPERATIVE DIAGNOSIS: Gastritis status post biopsy. First biopsy specimen rule out possible helical back to pylori infection. Second there does appear to be somewhat of a submucosal nodule status post biopsy rule out gastrointestinal stromal tumor. Injection of Botox at the gastric outlet OPERATION: EGD with submucosal injection. EGD with biopsy SURGEON: JOSELITO CHOE ANESTHESIA: LMAC TISSUE REMOVED OR ALTERED: As noted above. COMPLICATIONS: None. ESTIMATED BLOOD LOSS: None. INTRAOPERATIVE FINDINGS: As noted above. PROCEDURE: Patient tolerated the procedure well. No immediate postprocedure complications are noted. Patient is discharged in good condition. Discharge date 12/17/2019. Discharge diet: Regular. Discharge activity: Regular. 2 to 3-week follow-up to discuss findings. Patient is instructed to call the office or proceed to the emergency room should there be any further problems or questions. Wait on the pathology. May need endoscopic ultrasound.
[2019-12-17 14:23] VITALS: BP 135/77
== END 2019-12-17 14:30 | disposition home or self-care (01) ==
LOC: END 12:03
PROVIDERS: ATTEND Internal Medicine Gastroenterology
DX: K29.50 Unspecified chronic gastritis without bleeding (principal); K31.84 Gastroparesis; K59.04 Chronic idiopathic constipation; J45.909 Unspecified asthma, uncomplicated; G43.909 Migraine, unspecified, not intractable, without status migrainosus; I10 Essential (primary) hypertension; F17.200 Nicotine dependence, unspecified, uncomplicated; E66.9 Obesity, unspecified; Z68.33 Body mass index [BMI] 33.0-33.9, adult; Z88.8 Allergy status to other drugs, medicaments and biological substances; Z03.818 Encounter for observation for suspected exposure to other biological agents ruled out
CPT/HCPCS: 43236; 43239; 88342 ×2; 88305 ×2; 00731; U0003; J2704; J0585; C9803; 731; 87635